=== PATIENT | male | born 1960 | race Caucasian/White ===

== ENCOUNTER 2017-06-21 02:02 | Inpatient (IN) | payer SELFPAY ==
[2017-06-21] VITALS (15 sets, daily range): BP systolic 116–229; BP diastolic 69–128; PULSE 56–94; RESP 12–21; TEMP 96.7–97.9; O2SAT 95–100
[~2017-06-21] VITALS: Ht 180.3 cm; Wt 80.0 kg
[~2017-06-21 02:02] MED LIST: ASPI81TA45 PO; ATOR20TA PO; BLOO1MIS27; CITA-48 PO; DILT90TA PO; HYDR12.56 PO; LISI40TA PO; TRAM100T19 PO
[2017-06-21] MEDS ORDERED: SODIUM CHLOR 0.9% 1000 ML INJ 1,000 ML IV ONE (02:18)
[2017-06-21 02:20] LABS: MEAN CORPUSCULAR HGB CONC 36.2 % (32.0-36.0)
[2017-06-21 02:25] LABS: I-STAT POTASSIUM 4.4 MMOL/L (3.5-4.9); I-STAT SODIUM 138 MMOL/L (138-146)
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
[2017-06-21] MEDS ORDERED: niCARdipine INJ 25 MG in SODIUM CHLOR 0.9% 250 ML INJ 250 ML IV ONE (02:30)
[2017-06-21 02:31] LABS: AUTOMATED NEUTROPHIL # 10.4 TH/MM3 (1.8-7.7); BASOPHIL # 0.1 TH/MM3 (0-0.2); BASOPHIL % 0.7 % (0.0-2.0); EOSINOPHIL # 0.2 TH/MM3 (0-0.4); EOSINOPHIL % 1.3 % (0.0-4.0); HEMATOCRIT 44.5 % (39.0-51.0); LYMPH % 16.3 % (9.0-44.0); LYMPHOCYTE # 2.3 TH/MM3 (1.0-4.8); MEAN CELL VOLUME 92.3 FL (80.0-100.0); MEAN CORPUSCULAR HEMOGLOBIN 33.4 PG (27.0-34.0); MONO % 6.9 % (0.0-8.0); NEUT % 74.8 % (16.0-70.0); PLATELET COUNT 203 TH/MM3 (150-450); RED BLOOD COUNT 4.82 MIL/MM3 (4.50-5.90); RED CELL DISTRIBUTION WIDTH 12.7 % (11.6-17.2); WHITE BLOOD COUNT 13.8 TH/MM3 (4.0-11.0)
--- NOTE | 2017-06-21 02:34 | RADRPT ---
EXAM DATE/TIME: 06/21/2017 02:18 [facility] COMPARISON: No previous studies available for comparison. INDICATIONS : Stroke Alert. Chest pain radiating to right arm with weakness. RADIATION DOSE: 36.15 CTDIvol (mGy) MEDICAL HISTORY : None SURGICAL HISTORY : None. ENCOUNTER: Initial ACUITY: 1 day PAIN SCALE: 0/10 LOCATION: cranial TECHNIQUE: Multiple contiguous axial images were obtained of the head. Using automated exposure control and adj ustment of the mA and/or kV according to patient size, radiation dose was kept as low as reasonably a chievable to obtain optimal diagnostic quality images. DICOM format image data is available electro nically for review and comparison. FINDINGS: CEREBRUM: The ventricles are normal for age. No evidence of midline shift, mass lesion, hemorrhage or acute in farction. No extra-axial fluid collections are seen. POSTERIOR FOSSA: The cerebellum and brainstem are intact. The 4th ventricle is midline. The cerebellopontine angle i s unremarkable. EXTRACRANIAL: The visualized portion of the orbits is intact. SKULL: The calvaria is intact. No evidence of skull fracture. CONCLUSION: Unremarkable exam. These findings are called to Dr. Murillo at 1431 hrs. Syd Segura MD on June 21, 2017 at 2:27 Board Certified Radiologist. This report was verified electronically.
[2017-06-21] MEDS ORDERED: IODIXANOL 320 MG/ML 10 ML VIAL (for Rad CT) IV ONE (02:36)
[2017-06-21 02:37] LABS: HEMO FLAGS AUTO DIFF
[2017-06-21 02:38] LABS: APTT (PATIENT) 28.9 SEC (24.3-30.1); INTERNATIONAL NORMALIZED RATIO 1.1 RATIO; PROTHROMBIN TIME - PATIENT 11.8 SEC (9.8-11.6)
[2017-06-21 02:50] LABS: ALKALINE PHOSPHATASE 123 U/L (45-117); ALT (GPT) 25 U/L (12-78); ANION GAP 10 MEQ/L (5-15); AST (GOT) 46 U/L (15-37); BICARBONATE 23.8 MEQ/L (21.0-32.0); BLOOD UREA NITROGEN 20 MG/DL (7-18); CHLORIDE 104 MEQ/L (98-107); CREATINE KINASE 164 U/L (39-308); GLOMERULAR FILTRATION RATE 38 ML/MIN (>89); SODIUM (NA) 138 MEQ/L (136-145); TOTAL BILIRUBIN ADULT 0.6 MG/DL (0.2-1.0)
[2017-06-21 02:51] LABS: POTASSIUM 4.4 MEQ/L (3.5-5.1)
[2017-06-21] MEDS ORDERED: LABETALOL HCL 100 MG/20 ML VIAL IV PUSH ONE ×2 (03:00→03:30)
--- NOTE | 2017-06-21 03:01 | RADRPT ---
EXAM DATE/TIME: 06/21/2017 02:30 [facility] COMPARISON: No previous studies available for comparison. INDICATIONS : Chest pain. Evaluate for dissection. IV CONTRAST: 50 cc Visipaque (iodixanol) IV RADIATION DOSE: 17.05 CTDIvol (mGy) MEDICAL HISTORY : None SURGICAL HISTORY : None. ENCOUNTER: Initial ACUITY: 1 day PAIN SCALE: 6/10 LOCATION: facial TECHNIQUE: Volumetric scanning was performed using a multi-row detector CT scanner. The data was post processed with a variety of visualization algorithms including full volume maximum intensity projection, multi -planar sliding thin slab reformation, curved planar reformation, and surface rendering techniques. Using automated exposure control and adjustment of the mA and/or kV according to patient size, radiat ion dose was kept as low as reasonably achievable to obtain optimal diagnostic quality images. DICOM format image data is available electronically for review and comparison. FINDINGS: LUNGS: There is no consolidation or pneumothorax. No concerning pulmonary nodule is visualized. No pleural fluid is present. MEDIASTINUM: No abnormally enlarged lymph nodes by CT criteria. No axillary or hilar abnormalities are identified. ABDOMEN: The liver and spleen are free of focal defects. The gallbladder and pancreas demonstrate no abnormali ty. The adrenal glands are normal. The kidneys demonstrate no evidence of solid renal mass or hydrone phrosis. No free fluid or abdominal masses are identified. No para-aortic adenopathy is seen. PELVIS: No evidence of free fluid or pelvic mass. No abnormally enlarged inguinal or retroperitoneal lymph no con are present. The bladder is unremarkable. THORACIC AORTA: The thoracic aortic root is normal with normal branching of the great vessels. There is no evidence of a focal aneurysm. There is a [place] type B. dissection which begins just distal to the left subc lavian artery. This extends down to the level of the bifurcation. ABDOMINAL AORTA: The aorta is normal in caliber without aneurysm. The dissection extends down to the level of bifurcat ion. The renal arteries are patent bilaterally. The proximal celiac and superior mesenteric arteries are patent and normal in diameter. PELVIC VESSELS: The internal iliac and external iliac vessels are patent without aneurysm or stenosis. CONCLUSION: Edwardo type B aortic dissection which extends down to level of bifurcation. These findings were called to Dr. Murillo in the emergency room at 0255 hours. Syd Segura MD on June 21, 2017 at 2:51 Board Certified Radiologist. This report was verified electronically.
[2017-06-21 03:03] LABS: CKMB 4.8 NG/ML (0.5-3.6)
--- NOTE | 2017-06-21 03:08 | RADRPT ---
EXAM DATE/TIME: 06/21/2017 02:33 [facility] COMPARISON: CTA THORACIC ABDOMINAL AORTA W 3D RECON, June 21, 2017, 2:30. INDICATIONS : Chest pain. Stroke alert. Edwardo type B. thoracic dissection seen on CT. MEDICAL HISTORY : None. SURGICAL HISTORY : None. ENCOUNTER: Initial ACUITY: 1 day PAIN SCORE: 0/10 LOCATION: Bilateral chest FINDINGS: A single view of the chest demonstrates the lungs to be symmetrically aerated without evidence of mas s, infiltrate or effusion. The thoracic aortic dissection can be subtly visualized with decreased den sity along the lateral aorta on the AP view. The heart size is at the upper limits of normal. There i s no perihilar edema. Osseous structures are intact. CONCLUSION: 1. Subtle visualization of the known thoracic aortic dissection. 2. The lungs are clear. Syd Segura MD on June 21, 2017 at 3:00 Board Certified Radiologist. This report was verified electronically.
[2017-06-21 03:26] LABS: OVALOCYTES 1+ (NORMAL); PLATELET ESTIMATE SMEAR NORMAL (NORMAL); PLATELET MORPHOLOGY NORMAL (NORMAL); SCAN/DIFF AUTO DIFF CONFIRMED
[2017-06-21] MEDS ORDERED: fentaNYL CITRATE 250 MCG/5 ML AMP IV PUSH ONE (03:30)
[2017-06-21 03:40] LABS: AMPHETAMINE, URINE NEG (NEG); BARBITURATES, URINE NEG (NEG); COCAINE, URINE NEG (NEG)
[2017-06-21 03:44] LABS: BACTERIA, URINE RARE /hpf; BLOOD, URINE NEG (NEG); GLUCOSE,URINE NEG (NEG); HYALINE CAST, URINE 5 /lpf (RARE); KETONE, URINE NEG (NEG); NITRITE,URINE NEG (NEG); PH, URINE 6.5 (5.0-8.5); URINE COLOR LIGHT-YELLOW (YELLW/STRAW)
[2017-06-21] MEDS ORDERED: SODIUM CHLOR 0.9% 1000 ML INJ 1,000 ML IV SCH (04:04)
[2017-06-21] MEDS ORDERED: LORazepam 2 MG/ML VIAL IV PRN (04:15)
[2017-06-21] MEDS ORDERED: MISCELLANEOUS NURSING INFORMATION XX SCH (04:15)
[2017-06-21] MEDS ORDERED: CHLORHEXIDINE GLUCONATE 2 % 1 PACK (2 CLOTHS) TOP PRN (04:15)
[2017-06-21] MEDS ORDERED: RESP: ALBUTEROL 2.5 MG/IPRATROPIUM 0.5 MG NEB (PRN) INH (04:15)
[2017-06-21] MEDS ORDERED: ONDANSETRON HCL 4 MG/2 ML VIAL IV PRN (04:15)
[2017-06-21] MEDS ORDERED: MORPHINE SULFATE 4 MG/ML INJ IV PRN (04:15)
[2017-06-21] MEDS ORDERED: LACTULOSE SYRUP 20 GM/30 ML CUP PO PRN (04:15)
[2017-06-21] MEDS ORDERED: ZOLPIDEM TARTRATE 5 MG TAB PO PRN (04:15)
[2017-06-21] MEDS ORDERED: BISACODYL 10 MG SUPP RECTAL PRN (04:15)
[2017-06-21] MEDS ORDERED: SENNOSIDES 8.6 MG TAB PO PRN (04:15)
--- NOTE | 2017-06-21 04:24 | HHI.HP ---
HPI Service Critical Care Medicine Primary Care Physician Unknown Admission Diagnosis Type B Aortic Dissection Diagnosis: Travel History International Travel<30 Days: No Contact w/Intl Traveler <30 Da: No Traveled to Known Affected Are: No History of Present Illness 56 year old female presents with complaints of right upper extremity weakness and bilateral lower extremity weakness. The patient reports a history of lying in bed awake when he had onset of chest pressure and back pain. He reports that the pain felt like an expanding sensation in his chest and back. Then he got up and noticed having tingling in bilateral upper extremities with weakness in the right upper extremity and bilateral lower. He says that he ended up easing himself to the ground. On ambulance services arrival the patient was noted to have paresis of the right upper extremity and numbness to bilateral lower extremities with paralysis of bilateral lower extremities. However, en route to this facility the weakness resolved and during my exam he is a equal strength in all 4 extremities. In the emergency department at the CT of aorta diagnosed type B dissection and patient is admitted to critical care unit for medical management. Review of Systems Constitutional: COMPLAINS OF: Diaphoretic episodes, Dizziness, DENIES: Fatigue , Fever, Weight gain, Weight loss, Chills, Change in appetite, Night Sweats Endocrine: DENIES: Heat/cold intolerance, Polydipsia, Polyuria, Polyphagia Eyes: DENIES: Blurred vision, Diplopia, Eye inflammation, Eye pain, Vision loss , Photosensitivity, Double Vision Ears, nose, mouth, throat: DENIES: Tinnitus, Hearing loss, Vertigo, Nasal discharge, Oral lesions, Throat pain, Hoarseness, Ear Pain, Running Nose, Epistaxis, Sinus Pain, Toothache, Odynophagia Respiratory: DENIES: Apneas, Cough, Snoring, Wheezing, Hemoptysis, Sputum production, Shortness of breath Cardiovascular: COMPLAINS OF: Chest pain, DENIES: Palpitations, Syncope, Dyspnea on Exertion, PND, Lower Extremity Edema, Orthopnea, Claudication Gastrointestinal: DENIES: Abdominal pain, Black stools, Bloody stools, Constipation, Diarrhea, Nausea, Vomiting, Difficulty Swallowing, Anorexia Genitourinary: DENIES: Sexual dysfunction, Urinary frequency, Urinary incontinence, Urgency, Hematuria, Dysuria, Nocturia, Penile Discharge, Testicular Pain, Testicular Swelling Musculoskeletal: DENIES: Joint pain, Muscle aches, Stiffness, Joint Swelling, Back pain, Neck pain Integumentary: DENIES: Abnormal pigmentation, Nail changes, Pruritus, Rash Hematologic/lymphatic: DENIES: Bruising, Lymphadenopathy Immunologic/allergic: DENIES: Eczema, Urticaria Neurologic: COMPLAINS OF: Abnormal gait, Localized weakness, Paresthesias, Poor Balance, DENIES: Headache, Seizures, Speech Problems, Tremor Psychiatric: DENIES: Anxiety, Confusion, Mood changes, Depression, Hallucinations, Agitation, Suicidal Ideation, Homicidal Ideation, Delusions Past Family Social History Allergies: Coded Allergies: No Known Allergies (Unverified , 06/21/17) Past Medical History Hypertension Past Surgical History None Reported Medications Reported Meds & Active Scripts Active No Active Prescriptions or Reported Medications Active Ordered Medications Current Medications Medications (Trade) Dose Ordered Sig/Rios Route PRN Reason Start Time Stop Time Status Last Admin Dose Admin Sodium Chloride (NS 1000 ml Inj) 1,000 ml @ 84 mls/hr [id number] IV 06/21/17 04:04 Sodium Chloride (NS Flush) 2 ml UNSCH PRN .XX FLUSH AFTER USING IV ACCESS 06/21/17 04:15 Sodium Chloride (NS Flush) 2 ml BID .XX 06/21/17 09:00 Acetaminophen (Tylenol) 650 mg Q6H PRN PO PAIN 1-5 AND/OR FEVER >101F 06/21/17 04:15 Morphine Sulfate (Morphine Inj) 2 mg Q2H PRN IV PAIN SCALE 6 TO 10 06/21/17 04:15 Famotidine (Pepcid) 20 mg Q12HR PO 06/21/17 09:00 Lorazepam (Ativan Inj) 1 mg Q1H PRN IV Agitation/Sedation 06/21/17 04:15 Ondansetron HCl (Zofran Inj) 4 mg Q6H PRN IV NAUSEA OR VOMITING 06/21/17 04:15 Zolpidem Tartrate (Ambien) 5 mg HS PRN PO INSOMNIA 06/21/17 04:15 Miscellaneous Information 1 [id number] XX 06/21/17 04:15 Chlorhexidine Gluconate (Chlorhexidine 2% Cloth) 3 pack Taper DAILY@04 TOP 06/22/17 04:00 06/18/18 03:59 Chlorhexidine Gluconate (Chlorhexidine 2% Cloth) 3 pack UNSCH PRN [facility] 06/21/17 04:15 Senna/Docusate Sodium (Yanet-Colace) 1 tab BID PO 06/21/17 09:00 Magnesium Hydroxide (Milk Of Rita Ryder) 30 ml Q12H PRN PO MILD - MODERATE CONSTIPATION 06/21/17 04:15 Sennosides (Senokot) 17.2 mg Q12H PRN PO MODERATE - SEVERE CONSTIPATION 06/21/17 04:15 Bisacodyl (Dulcolax Supp) 10 mg DAILY PRN RECTAL SEVERE CONSITIPATION 06/21/17 04:15 Lactulose 30 ml 30 ml DAILY PRN PO SEVERE CONSITIPATION 06/21/17 04:15 Labetalol HCl/ Sodium Chloride (Trandate Inj/NS Inj) 250 ml @ 0 mls/hr TITRATE IV 06/21/17 04:15 Family History No family history of early coronary artery disease or cancer Social History No history of alcohol or illicit drug abuse Physical Exam Vital Signs Vital Signs Date Time Temp Pulse Resp B/P Pulse Ox O2 Delivery O2 Flow Rate FiO2 06/21/17 03:24 75 18 152/84 100 Nasal Cannula 2 06/21/17 03:01 97.7 90 16 202/112 98 Nasal Cannula 2 06/21/17 02:45 222/128 06/21/17 02:28 98 Room Air 06/21/17 02:28 98 Room Air 06/21/17 02:07 94 16 229/128 96 Physical Exam GENERAL: Well-nourished, well-developed patient. SKIN: Warm and dry. HEAD: Normocephalic. EYES: No scleral icterus. No injection or drainage. NECK: Supple, trachea midline. No JVD or lymphadenopathy. CARDIOVASCULAR: Regular rate and rhythm without murmurs, gallops, or rubs. RESPIRATORY: Breath sounds equal bilaterally. No accessory muscle use. GASTROINTESTINAL: Abdomen soft, non-tender, nondistended. MUSCULOSKELETAL: No cyanosis, or edema. BACK: Nontender without obvious deformity. NEURO EXAM: Mental Status: The patient is alert and oriented to person, place, and time with normal speech. Cranial Nerves: Visual acuity intact bilaterally. Visual bonner normal in all quadrants. Pupils are round, reactive to light and accommodation. Extraocular movements are intact without ptosis. Hearing is normal bilaterally. Voice is normal. Shoulder shrug strong, and equal bilaterally. Tongue protrudes midline and moves symmetrically. Reflexes: Biceps, patellar, and Achilles are 2/4 bilaterally. No clonus. Plantar reflex is downward bilaterally. Sensation: Sensation is intact bilaterally to pain and light touch. Two-point discrimination is intact. Motor: Good muscle tone. Strength is 5/5 bilaterally at all 4 extremities. Cerebellar: [id number] and [id number]-[id number] test normal bilaterally. Laboratory Laboratory Tests Test 06/21/17 06/21/17 06/21/17 02:10 02:12 02:48 Bedside Hemoglobin 15.3 Bedside Hematocrit 45.0 Bedside Sodium 138 Sodium Level 138 Bedside Potassium 4.4 Potassium Level 4.4 Bedside Chloride 101 Chloride Level 104 Carbon Dioxide Level 23.8 Anion Gap 10 Bedside Blood Urea Nitrogen 26 Blood Urea Nitrogen 20 Creatinine 1.85 Bedside Creatinine 1.8 Estimat Glomerular Filtration 38 Rate Bedside Glucose 115 Random Glucose 107 Calcium Level 8.5 Magnesium Level 2.0 Total Bilirubin 0.6 Aspartate Amino Transf 46 (AST/SGOT) Alanine Aminotransferase 25 (ALT/SGPT) Alkaline Phosphatase 123 Total Creatine Kinase 164 Creatine Kinase MB 4.8 Troponin I 0.13 Total Protein 7.0 Albumin 3.2 Lipase 1386 White Blood Count 13.8 Red Blood Count 4.82 Hemoglobin 16.1 Hematocrit 44.5 Mean Corpuscular Volume 92.3 Mean Corpuscular Hemoglobin 33.4 Mean Corpuscular Hemoglobin 36.2 Concent Red Cell Distribution Width 12.7 Platelet Count 203 Mean Platelet Volume 8.8 Neutrophils (%) (Auto) 74.8 Lymphocytes (%) (Auto) 16.3 Monocytes (%) (Auto) 6.9 Eosinophils (%) (Auto) 1.3 Basophils (%) (Auto) 0.7 Neutrophils # (Auto) 10.4 Lymphocytes # (Auto) 2.3 Monocytes # (Auto) 1.0 Eosinophils # (Auto) 0.2 Basophils # (Auto) 0.1 CBC Comment AUTO DIFF Differential Comment AUTO DIFF CONFIRMED Platelet Estimate NORMAL Platelet Morphology Comment NORMAL Ovalocytes 1+ Prothrombin Time 11.8 Prothromb Time International 1.1 Ratio Activated Partial 28.9 Thromboplast Time Fibrinogen 250 Blood Type O POSITIVE Antibody Screen NEGATIVE Blood Bank Comment Urine Color LIGHT-YELLOW Urine Turbidity CLEAR Urine pH 6.5 Urine Specific [place] 1.011 Urine Protein 100 Urine Glucose (UA) NEG Urine Ketones NEG Urine Occult Blood NEG Urine Nitrite NEG Urine Bilirubin NEG Urine Urobilinogen LESS THAN 2.0 Urine Leukocyte Esterase NEG Urine RBC LESS THAN 1 Urine Bacteria RARE Urine Hyaline Casts 5 Microscopic Urinalysis Comment Urine Opiates Screen NEG Urine Barbiturates Screen NEG Urine Amphetamines Screen NEG Urine Benzodiazepines Screen NEG Urine Cocaine Screen NEG Urine Cannabinoids Screen NEG Result Diagram: 06/21/1721106/21/17209 Imaging Last 24 hours Impressions Chest X-Ray 06/21/17217 Signed Impressions: Service Date/Time: Wednesday, June 21, 2017 02:33 - CONCLUSION: 1. Subtle visualization of the known thoracic aortic dissection. 2. The lungs are clear. Syd Segura MD Aorta CTA 06/21/17217 Signed Impressions: Service Date/Time: Wednesday, June 21, 2017 02:30 - CONCLUSION: Edwardo type B aortic dissection which extends down to level of bifurcation. These findings were called to Dr. Murillo in the emergency room at 0255 hours. Syd Segura MD Head CT 06/21/17 0000 Signed Impressions: Service Date/Time: Wednesday, June 21, 2017 02:18 - CONCLUSION: Unremarkable exam. These findings are called to Dr. Murillo at 1431 hrs. Syd Segura MD Assessment and Plan Assessment and Plan Type B aortic dissection - Medical management - Labetalol drip per protocol - Cardiothoracic surgery consult Hypertension - Labetalol drip Acute kidney injury - Unknown baseline creatinine - IV hydration - Strict I's and O's - Monitor creatinine and electrolytes replacement per ICU protocol DVT GI prophylaxis - Teds SCDs - Pepcid - Pharmacological DVT prophylaxis per CT surgeon Critical Care: The total critical care time was 35 minutes. Time to perform other separately billable procedures was not included in the critical care time. Pio Cruz MD Jun 21, 2017 04:24
[2017-06-21] MEDS ORDERED: MIDAZOLAM HCL 5 MG/ML VIAL (1 ML) IM ONE (08:00)
[2017-06-21] MEDS: DOCUSATE SODIUM 50 MG/SENNA 8.6 MG TAB PO SCH ×2 (08:43→21:00)
[2017-06-21] MEDS: FAMOTIDINE 20 MG TAB PO SCH ×2 (08:43→21:00)
[2017-06-21] MEDS: METOPROLOL TARTRATE 50 MG TAB PO SCH ×2 (09:00→17:08)
[2017-06-21] MEDS: SODIUM CHLORIDE 0.9% FLUSH 10 ML FLUSH SCH ×2 (09:00→21:00)
[2017-06-21] MEDS: MORPHINE SULFATE 4 MG/ML INJ IV PRN ×2 (09:01→13:28)
--- NOTE | 2017-06-21 09:06 | EKG ---
Date Performed: 06/21/2017 Time Performed: 02:11:33 PTAGE: 56 years EKG: Sinus rhythm LEFT VENTRICULAR HYPERTROPHY AND ST-T CHANGE ABNORMAL ECG NO PREVIOUS TRACING DOCTOR: Deangelo Montez Interpretating Date/Time 06/21/2017 09:05:24
--- NOTE | 2017-06-21 10:10 | MB ---
cc: BELA MORA M.D. DATE OF CONSULTATION 06/21/2017 REASON FOR CONSULTATION Mr. James is a 56-year-old seen in neurological consultation. The patient came into the hospital in the middle of the night and eventually a stroke alert was called. He was felt not to be a candidate for TPA. The patient describes that he was watching television by himself when he developed severe chest and back pain. He struggled to open his door to go to another door in the house to ask for help. He describes that he had severe weakness in both arms and he shuffled apparently on his knees and had a very hard time opening the door as he did not have the strength to turn the knob of the door. He was able to knock on his family's door with his knees and was subsequently brought to the hospital. It appears that on his way coming to the hospital, his weakness improved. He was found to have some aortic dissection type of beat extending down to the bifurcation. PAST MEDICAL HISTORY The patient's medical history is mostly negative. It appears that he was not getting any medical care, not taking any medication. There is a history of hypertension. At the time of my examination, he was in some discomfort and it appears that when his blood pressure comes down, he becomes symptomatic and started nearly vomiting. The nurse was with him and he seemed to improve quickly as the labetalol dosing was adjusted. He was not able to focus and provide a more detailed history. Ocular movements and visual bonner appeared full. No facial weakness. Tongue and palate moved well. He was able to move all four extremities for me and oppose some reasonable resistance. Muscle stretch reflexes were diminished, but present throughout and plantar responses were flexor. He did raise the arms and gripped to a mild degree. His sensory exam was grossly intact. LABORATORY DATA Reviewed. White count 13.8, hemoglobin 16.1, platelets 203. BUN 20, creatinine 1.85, sodium 138, potassium 4.4, glucose 115, CPK 164. Lipase elevated to 1386. ASSESSMENT This patient had sudden chest and back pain along with weakness of all four extremities. Although this is a historical finding, it appears to be significant. He is discovered to have an aortic dissection, therefore I called and spoke to the cardiovascular surgeon Dr. Joseph about the possible fact that he might have had some transient spinal cord ischemia. Dr. Joseph is going to evaluate the patient. I am going to see if we can obtain an MRI of the cervical and thoracic spine. I will make the study without contrast as there is some renal insufficiency. The patient is to remain in the unit, under bedrest and his blood pressure management is to be guided by the other treating physicians. I will follow the neurological course. Thank you for asking us to assist in his care. MD HENRY Tellez/NGOZI /9:39 AM /9:59 AM
[2017-06-21] MEDS: LABETALOL INJ 500 MG in SODIUM CHLORIDE 0.9% INJ 150 ML IV SCH ×2 (10:53→13:27)
--- NOTE | 2017-06-21 11:54 | EKG ---
Date Performed: 06/21/2017 Time Performed: 10:04:23 PTAGE: 56 years EKG: SINUS BRADYCARDIA ST DEVIATION AND MARKED T-WAVE ABNORMALITY, CONSIDER ANTEROLATERAL ISCHEM IA ABNORMAL ECG PREVIOUS TRACING : 06/21/2017 02.11 DOCTOR: Deangelo Montez Interpretating Date/Time 06/21/2017 11:52:59
--- NOTE | 2017-06-21 15:39 | HHI.CCPN ---
Subjective Remarks/Hospital Course 56 year old female presents with complaints of right upper extremity weakness and bilateral lower extremity weakness. The patient reports a history of lying in bed awake when he had onset of chest pressure and back pain. He reports that the pain felt like an expanding sensation in his chest and back. Then he got up and noticed having tingling in bilateral upper extremities with weakness in the right upper extremity and bilateral lower. He says that he ended up easing himself to the ground. On ambulance services arrival the patient was noted to have paresis of the right upper extremity and numbness to bilateral lower extremities with paralysis of bilateral lower extremities. However, en route to this facility the weakness resolved and during my exam he is a equal strength in all 4 extremities. In the emergency department at the CT of aorta diagnosed type B dissection and patient is admitted to critical care unit for medical management. 06/21 1500 hrs: BP control good after PO lopressor started. Will taper off labetalol drip. Amlodipine added and catpres for prn. CV surgery recommends allowing BP to rise to 140 - some question of temporary spinal cord ischemia during initial event. Neurology Service input appreciated. MRI pending. Peripheral perfusion unimpaired. Celiac axis and SMA widely patent - etiology of lipase elevation unclear. Objective Vital Signs Date Time Temp Pulse Resp B/P Pulse Ox O2 Delivery O2 Flow Rate FiO2 06/21/17 12:00 97.6 56 14 116/72 95 06/21/17 07:26 21 06/21/17 07:00 Room Air 06/21/17 03:24 2 Result Diagram: 06/21/1721106/21/17209 Imaging Last 24 hours Impressions Chest X-Ray 06/21/17217 Signed Impressions: Service Date/Time: Wednesday, June 21, 2017 02:33 - CONCLUSION: 1. Subtle visualization of the known thoracic aortic dissection. 2. The lungs are clear. Syd Segura MD Aorta CTA 06/21/17217 Signed Impressions: Service Date/Time: Wednesday, June 21, 2017 02:30 - CONCLUSION: Edwardo type B aortic dissection which extends down to level of bifurcation. These findings were called to Dr. Murillo in the emergency room at 0255 hours. Syd Segura MD Head CT 06/21/17 0000 Signed Impressions: Service Date/Time: Wednesday, June 21, 2017 02:18 - CONCLUSION: Unremarkable exam. These findings are called to Dr. Murillo at 1431 hrs. Syd Segura MD Objective Remarks GENERAL: WAnxious. SKIN: Warm and dry. HEAD: Normocephalic. NECK: Supple, trachea midline. CARDIOVASCULAR: Bradycardic rate and rhythm without murmurs, gallops, or rubs. RESPIRATORY: Breath sounds equal bilaterally. No accessory muscle use. Clear. GASTROINTESTINAL: Abdomen soft, non-tender, nondistended. BS active. MUSCULOSKELETAL: No cyanosis, or edema. BACK: Nontender without obvious deformity. NEURO EXAM: Moves 4 limbs with strength. O X 3, speech clear. A/P Assessment and Plan Type B aortic dissection - Medical management - Labetalol drip per protocol -> lopressor and norvasc po. - Cardiothoracic surgery consult Hypertension - Taper Labetalol drip Acute kidney injury - Unknown baseline creatinine - IV hydration - Strict I's and O's - Monitor creatinine and electrolytes replacement per ICU protocol DVT GI prophylaxis - SCDs - Pepcid - Pharmacological DVT prophylaxis per CT surgeon Overall impression: Critically ill with unstable acute aortic emergency, possibly involving spinal cord circulation. MRI pending. Requiring aggressive maneuvers to control blood pressure. LVH should respond to beat blockers well. Critical care 55 mins Joey Newton MD Jun 21, 2017 15:39
[2017-06-22] VITALS (12 sets, daily range): BP systolic 124–146; BP diastolic 58–87; PULSE 58–79; RESP 15–24; TEMP 96.7–99; O2SAT 96–98
[2017-06-22] MEDS: METOPROLOL TARTRATE 50 MG TAB PO SCH ×4 (01:23→21:03)
[2017-06-22] MEDS: MORPHINE SULFATE 4 MG/ML INJ IV PRN (03:41)
[2017-06-22] MEDS: CHLORHEXIDINE GLUCONATE 2 % 1 PACK (2 CLOTHS) TOP SCH (04:00)
[2017-06-22 04:44] LABS: AUTOMATED NEUTROPHIL # 8.8 TH/MM3 (1.8-7.7); BASOPHIL % 0.3 % (0.0-2.0); EOSINOPHIL # 0.1 TH/MM3 (0-0.4); HEMATOCRIT 40.1 % (39.0-51.0); HEMO FLAGS DIFF FINAL; LYMPH % 12.1 % (9.0-44.0); LYMPHOCYTE # 1.4 TH/MM3 (1.0-4.8); MEAN CELL VOLUME 94.9 FL (80.0-100.0); MEAN CORPUSCULAR HEMOGLOBIN 32.6 PG (27.0-34.0); MEAN CORPUSCULAR HGB CONC 34.3 % (32.0-36.0); MONO % 11.1 % (0.0-8.0); NEUT % 75.5 % (16.0-70.0); PLATELET COUNT 160 TH/MM3 (150-450); RED BLOOD COUNT 4.23 MIL/MM3 (4.50-5.90); RED CELL DISTRIBUTION WIDTH 12.9 % (11.6-17.2); WHITE BLOOD COUNT 11.7 TH/MM3 (4.0-11.0)
[2017-06-22 05:13] LABS: ALKALINE PHOSPHATASE 103 U/L (45-117); ALT (GPT) 18 U/L (12-78); ANION GAP 8 MEQ/L (5-15); AST (GOT) 11 U/L (15-37); BICARBONATE 28.9 MEQ/L (21.0-32.0); BLOOD UREA NITROGEN 23 MG/DL (7-18); CHLORIDE 102 MEQ/L (98-107); GLOMERULAR FILTRATION RATE 41 ML/MIN (>89); POTASSIUM 3.4 MEQ/L (3.5-5.1); SODIUM (NA) 139 MEQ/L (136-145); TOTAL BILIRUBIN ADULT 0.7 MG/DL (0.2-1.0)
[2017-06-22] MEDS: cloNIDine HCL 0.1 MG TAB PO PRN ×3 (06:13→22:42)
[2017-06-22] MEDS: SODIUM CHLORIDE 0.9% FLUSH 10 ML FLUSH SCH ×2 (08:09→21:00)
[2017-06-22] MEDS: FAMOTIDINE 20 MG TAB PO SCH ×2 (08:09→21:03)
[2017-06-22] MEDS: DOCUSATE SODIUM 50 MG/SENNA 8.6 MG TAB PO SCH ×2 (08:09→21:03)
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
--- NOTE | 2017-06-22 08:42 | HHI.CCPN ---
Subjective Remarks/Hospital Course 56 year old female presents with complaints of right upper extremity weakness and bilateral lower extremity weakness. The patient reports a history of lying in bed awake when he had onset of chest pressure and back pain. He reports that the pain felt like an expanding sensation in his chest and back. Then he got up and noticed having tingling in bilateral upper extremities with weakness in the right upper extremity and bilateral lower. He says that he ended up easing himself to the ground. On ambulance services arrival the patient was noted to have paresis of the right upper extremity and numbness to bilateral lower extremities with paralysis of bilateral lower extremities. However, en route to this facility the weakness resolved and during my exam he is a equal strength in all 4 extremities. In the emergency department at the CT of aorta diagnosed type B dissection and patient is admitted to critical care unit for medical management. 06/21 1500 hrs: BP control good after PO lopressor started. Will taper off labetalol drip. Amlodipine added and catapres for prn. CV surgery recommends allowing BP to rise to 140 - some question of temporary spinal cord ischemia during initial event. Neurology Service input appreciated. MRI pending. Peripheral perfusion unimpaired. Celiac axis and SMA widely patent - etiology of lipase elevation unclear. 06/22: Pulse rate control good. BP allowed to rise moderately due to possible episode of cord ischemia. Urine output marginal. Objective Vital Signs Date Time Temp Pulse Resp B/P Pulse Ox O2 Delivery O2 Flow Rate FiO2 06/22/17 04:00 97.8 62 18 142/80 96 06/21/17 19:00 Room Air 06/21/17 07:26 21 06/21/17 03:24 2 Intake and Output 06/21/17 06/21/17 06/22/17 08:00 16:00 00:00 Intake Total 400 ml 2243 ml Output Total 200 ml Balance 400 ml 2043 ml Result Diagram: 06/22/17 0351 06/22/17 035 Imaging Last 24 hours Impressions Chest X-Ray 06/21/17217 Signed Impressions: Service Date/Time: Wednesday, June 21, 2017 02:33 - CONCLUSION: 1. Subtle visualization of the known thoracic aortic dissection. 2. The lungs are clear. Syd Segura MD Aorta CTA 06/21/17217 Signed Impressions: Service Date/Time: Wednesday, June 21, 2017 02:30 - CONCLUSION: [place] type B aortic dissection which extends down to level of bifurcation. These findings were called to Dr. Murillo in the emergency room at 0255 hours. Syd Segura MD Head CT 06/21/17 0000 Signed Impressions: Service Date/Time: Wednesday, June 21, 2017 02:18 - CONCLUSION: Unremarkable exam. These findings are called to Dr. Murillo at 1431 hrs. Syd Segura MD Objective Remarks GENERAL: WAnxious. SKIN: Warm and dry. HEAD: Normocephalic. NECK: Supple, trachea midline. CARDIOVASCULAR: Bradycardic rate and rhythm without murmurs, gallops, or rubs. No JVD. RESPIRATORY: Breath sounds equal bilaterally. No accessory muscle use. Clear. GASTROINTESTINAL: Abdomen soft, non-tender, nondistended. BS active. MUSCULOSKELETAL: No cyanosis, or edema. Well perfused legs. NEURO EXAM: Moves 4 limbs with strength. O X 3, speech clear. A/P Assessment and Plan Type B aortic dissection - Medical management - Labetalol drip per protocol -> lopressor and norvasc po. - Cardiothoracic surgery consult Hypertension - Taper Labetalol drip Acute kidney injury - Unknown baseline creatinine - IV hydration - Strict I's and O's - Monitor creatinine and electrolytes replacement per ICU protocol DVT GI prophylaxis - SCDs - Pepcid - Pharmacological DVT prophylaxis per CT surgeon Overall impression: Critically ill with acute aortic emergency, possibly involving spinal cord circulation. MRI pending. Responding to aggressive maneuvers to control blood pressure. LVH will respond to beat blockers well. Critical Care 38 mins Joey Newton MD Jun 22, 2017 08:42
[2017-06-22] MEDS ORDERED: GADODIAMIDE PF 287 MG/ML 20 ML VIAL (for RAD MRI) IV ONE (09:25)
--- NOTE | 2017-06-22 09:41 | RADRPT ---
EXAM DATE/TIME: 06/22/2017 08:48 [facility] COMPARISON: No previous studies available for comparison. INDICATIONS : Lower extremity weakness. MEDICAL HISTORY : Hypertension. SURGICAL HISTORY : None. ENCOUNTER: Subsequent ACUITY: 2 day PAIN SCORE: 0/10 LOCATION: neck TECHNIQUE: Multiplanar, multisequence MRI examination of the cervical spine was performed. FINDINGS: At C2-3 there is mild degenerative change about the canal or foraminal stenosis. At C3-4 there is posterior disc and osteophyte effacing thecal sac without cord compression or signif icant foraminal stenosis. At C4-5 there is a mild disc protrusion and posterior osteophytic ridging resulting in mild AP canal stenosis and minimal impression on anterior surface of the cord. Minimal foraminal encroachment. At C5-6 there is a mild disc protrusion and osteophytic ridging with mild AP canal stenosis and mild flattening of anterior surface of the cord. Mild to moderate bilateral foraminal stenosis. At C6-7 there is posterior osteophytic ridging effacing the thecal sac without significant cord compr ession. Mild foraminal stenosis. C7-T1: Mild osteophytic ridging without stenosis. Slight reversal of normal cervical lordosis. No cord signal abnormalities. CONCLUSION: 1. Moderate degenerative disc disease with slight reversal of normal cervical lordosis. 2. Osteophytes and mild disc protrusions at C4-5-6-7 resulting in mild AP canal stenosis and mild fla ttening of the anterior surface of the cord. No cord signal abnormality. Yamil Marks MD on June 22, 2017 at 9:25 Board Certified Radiologist. This report was verified electronically.
--- NOTE | 2017-06-22 10:06 | RADRPT ---
EXAM DATE/TIME: 06/22/2017 08:48 [facility] COMPARISON: No previous studies available for comparison. INDICATIONS : Lower extremity weakness. CONTRAST: 16 cc Multihance (gadobenate) IV MEDICAL HISTORY : Hypertension. SURGICAL HISTORY : None. ENCOUNTER: Subsequent ACUITY: 2 day PAIN SCORE: 0/10 LOCATION: back TECHNIQUE: Multiplanar multisequence MRI of the thoracic spine was performed. FINDINGS: There is mild to moderate degenerative disc disease in the thoracic spine. Normal alignment. Minimal posterior ossific ridging. No discrete disc protrusions. No cord impingement and no cord signal abnor malities. No canal stenosis or direct nerve root compression. Incidental hemangioma at L1. CONCLUSION: 1. Mild to moderate degenerative disc disease. No acute findings. No cord impingement or direct nerve root compression. Yamil Marks MD on June 22, 2017 at 9:59 Board Certified Radiologist. This report was verified electronically.
--- NOTE | 2017-06-22 12:18 | HHI.PR ---
Review/Management Daily Summary 06/22 doing better today good motor functions all 4 limbs admits some chronic hand numbness mri results seen neuro herrera can be followed as outpt in 2-3 weeks Subjective Subjective Comments No new neuro events reported No headache Active Medications Current Medications Medications (Trade) Dose Ordered Sig/Rios Route Start Time Stop Time Status Last Admin (NS Flush) 2 ml UNSCH PRN .XX 06/21/17 04:15 (NS Flush) 2 ml BID .XX 06/21/17 09:00 06/22/17 08:09 (Tylenol) 650 mg Q6H PRN PO 06/21/17 04:15 (Pepcid) 20 mg Q12HR PO 06/21/17 09:00 06/22/17 08:09 (Ativan Inj) 1 mg Q1H PRN IV 06/21/17 04:15 (Zofran Inj) 4 mg Q6H PRN IV 06/21/17 04:15 06/21/17 14:52 (Ambien) 5 mg HS PRN PO 06/21/17 04:15 Miscellaneous Information 1 Q361D XX 06/21/17 04:15 06/21/17 04:15 (Chlorhexidine 2% Cloth) 3 pack Taper DAILY@04 TOP 06/22/17 04:00 06/18/18 03:59 06/22/17 04:00 (Chlorhexidine 2% Cloth) 3 pack UNSCH PRN TOP 06/21/17 04:15 (Yanet-Colace) 1 tab BID PO 06/21/17 09:00 06/22/17 08:09 (Milk Of Magnesia Liq) 30 ml Q12H PRN PO 06/21/17 04:15 (Senokot) 17.2 mg Q12H PRN PO 06/21/17 04:15 (Dulcolax Supp) 10 mg DAILY PRN RECTAL 06/21/17 04:15 Lactulose 30 ml 30 ml DAILY PRN PO 06/21/17 04:15 (Trandate Inj/NS Inj) 250 ml @ 0 mls/hr TITRATE IV 06/21/17 04:15 06/21/17 13:27 (Lopressor) 50 mg Q8H PO 06/21/17 09:00 06/22/17 08:15 (Norvasc) 10 mg DAILY PO 06/21/17 09:00 06/22/17 08:09 (Morphine Inj) 4 mg Q2H PRN IV 06/21/17 08:15 06/22/17 03:41 (Catapres) 0.1 mg Q6H PRN PO 06/21/17 15:30 06/22/17 06:13 Allergies Allergies Coded Allergies No Known Allergies (Unverified06/21/17) Exam I&O / VS 06/21/17 06/21/17 06/22/17 15:00 23:00 07:00 Intake Total 2243 ml 100 ml Output Total 200 ml 525 ml Balance 2043 ml -425 ml Intake Oral 720 ml 100 ml IV Total 1523 ml Output Urine Total 200 ml 525 ml Stool Total 0 ml # Voids 1 # Bowel Movements 0 0 Vital Signs Date Time Temp Pulse Resp B/P Pulse Ox O2 Delivery O2 Flow Rate FiO2 06/22/17 08:00 97.9 60 18 146/86 98 06/22/17 07:00 58 06/22/17 07:00 96 Room Air 06/22/17 04:00 97.8 62 18 142/80 96 06/22/17 02:00 66 06/22/17 00:00 96.7 68 15 124/58 98 06/22/17 00:00 68 06/21/17 20:00 97.6 60 12 130/76 98 06/21/17 19:00 98 Room Air 06/21/17 16:00 96.7 56 17 126/75 95 06/21/17 15:00 75 Objective Radiology Results Last 48 hours Impressions Thoracic Spine MRI 06/22/17 0000 Signed Impressions: Service Date/Time: June 08:48 - CONCLUSION: 1. Mild to moderate degenerative disc disease. No acute findings. No cord impingement or direct nerve root compression. Yamil Marks MD Cervical Spine MRI 06/22/17 0000 Signed Impressions: Service Date/Time: June 08:48 - CONCLUSION: 1. Moderate degenerative disc disease with slight reversal of normal cervical lordosis. 2. Osteophytes and mild disc protrusions at C4-5-6-7 resulting in mild AP canal stenosis and mild flattening of the anterior surface of the cord. No cord signal abnormality. Yamil Marks MD Chest X-Ray 06/21/17217 Signed Impressions: Service Date/Time: Wednesday, June 21, 2017 02:33 - CONCLUSION: 1. Subtle visualization of the known thoracic aortic dissection. 2. The lungs are clear. Syd Segura MD Aorta CTA 06/21/17217 Signed Impressions: Service Date/Time: Wednesday, June 21, 2017 02:30 - CONCLUSION: [place] type B aortic dissection which extends down to level of bifurcation. These findings were called to Dr. Murillo in the emergency room at 0255 hours. Syd Segura MD Head CT 06/21/17 0000 Signed Impressions: Service Date/Time: Wednesday, June 21, 2017 02:18 - CONCLUSION: Unremarkable exam. These findings are called to Dr. Murillo at 1431 hrs. Syd Segura MD Micro and Labs Laboratory Tests Test 06/22/17 03:51 White Blood Count 11.7 Red Blood Count 4.23 Hemoglobin 13.8 Hematocrit 40.1 Mean Corpuscular Volume 94.9 Mean Corpuscular Hemoglobin 32.6 Mean Corpuscular Hemoglobin 34.3 Concent Red Cell Distribution Width 12.9 Platelet Count 160 Mean Platelet Volume 8.6 Neutrophils (%) (Auto) 75.5 Lymphocytes (%) (Auto) 12.1 Monocytes (%) (Auto) 11.1 Eosinophils (%) (Auto) 1.0 Basophils (%) (Auto) 0.3 Neutrophils # (Auto) 8.8 Lymphocytes # (Auto) 1.4 Monocytes # (Auto) 1.3 Eosinophils # (Auto) 0.1 Basophils # (Auto) 0.0 CBC Comment DIFF FINAL Differential Comment Sodium Level 139 Potassium Level 3.4 Chloride Level 102 Carbon Dioxide Level 28.9 Anion Gap 8 Blood Urea Nitrogen 23 Creatinine 1.72 Estimat Glomerular Filtration 41 Rate Random Glucose 99 Calcium Level 8.5 Phosphorus Level 3.1 Magnesium Level 2.0 Total Bilirubin 0.7 Aspartate Amino Transf 11 (AST/SGOT) Alanine Aminotransferase 18 (ALT/SGPT) Alkaline Phosphatase 103 Total Protein 5.7 Albumin 2.7 Lipase 186 Rosina Hanks MD Jun 22, 2017 12:18
--- NOTE | 2017-06-22 14:54 | EKG ---
Date Performed: 06/21/2017 Time Performed: 16:00:04 PTAGE: 56 years EKG: SINUS BRADYCARDIA ST DEVIATION AND MARKED T-WAVE ABNORMALITY, CONSIDER ANTEROLATERAL ISCHEM IA ABNORMAL ECG PREVIOUS TRACING : 06/21/2017 10.04 Since previous tracing, no significant change noted DOCTOR: Yisel Alegria Interpretating Date/Time 06/22/2017 14:53:40
--- NOTE | 2017-06-22 14:54 | EKG ---
Date Performed: 06/21/2017 Time Performed: 22:00:56 PTAGE: 56 years EKG: Sinus rhythm ST DEVIATION AND MARKED T-WAVE ABNORMALITY, CONSIDER ANTEROLATERAL ISCHEMIA ABNORMAL ECG PREVIOUS TRACING : 06/21/2017 16.00 Since previous tracing, no significant change noted DOCTOR: Yisel Alegria Interpretating Date/Time 06/22/2017 14:54:03
[2017-06-22] MEDS: hydrALAZINE HCL 25 MG TAB PO SCH ×2 (16:07→21:03)
[2017-06-22] MEDS: hydrALAZINE HCL 20 MG/ML VIAL IV PUSH PRN ×2 (18:06→18:39)
[2017-06-23] VITALS (11 sets, daily range): BP systolic 122–162; BP diastolic 60–88; PULSE 61–78; RESP 20–28; TEMP 97.9–98.7; O2SAT 93–96
[2017-06-23] MEDS: hydrALAZINE HCL 20 MG/ML VIAL IV PUSH PRN (01:15)
[2017-06-23] MEDS: CHLORHEXIDINE GLUCONATE 2 % 1 PACK (2 CLOTHS) TOP SCH (04:00)
[2017-06-23] MEDS: METOPROLOL TARTRATE 50 MG TAB PO SCH ×3 (04:14→21:09)
[2017-06-23] MEDS: MORPHINE SULFATE 4 MG/ML INJ IV PRN ×4 (04:17→21:26)
[2017-06-23] MEDS: hydrALAZINE HCL 25 MG TAB PO SCH ×3 (05:51→21:08)
[2017-06-23] MEDS: SODIUM CHLORIDE 0.9% FLUSH 10 ML FLUSH SCH ×2 (07:19→21:12)
[2017-06-23] MEDS: DOCUSATE SODIUM 50 MG/SENNA 8.6 MG TAB PO SCH ×2 (08:29→21:08)
[2017-06-23] MEDS: FAMOTIDINE 20 MG TAB PO SCH ×2 (08:29→21:08)
--- NOTE | 2017-06-23 08:55 | HHI.CCPN ---
Subjective Remarks/Hospital Course 56 year old female presents with complaints of right upper extremity weakness and bilateral lower extremity weakness. The patient reports a history of lying in bed awake when he had onset of chest pressure and back pain. He reports that the pain felt like an expanding sensation in his chest and back. Then he got up and noticed having tingling in bilateral upper extremities with weakness in the right upper extremity and bilateral lower. He says that he ended up easing himself to the ground. On ambulance services arrival the patient was noted to have paresis of the right upper extremity and numbness to bilateral lower extremities with paralysis of bilateral lower extremities. However, en route to this facility the weakness resolved and during my exam he is a equal strength in all 4 extremities. In the emergency department at the CT of aorta diagnosed type B dissection and patient is admitted to critical care unit for medical management. 06/21 1500 hrs: BP control good after PO lopressor started. Will taper off labetalol drip. Amlodipine added and catapres for prn. CV surgery recommends allowing BP to rise to 140 - some question of temporary spinal cord ischemia during initial event. Neurology Service input appreciated. MRI pending. Peripheral perfusion unimpaired. Celiac axis and SMA widely patent - etiology of lipase elevation unclear. 06/22: Pulse rate control good. BP allowed to rise moderately due to possible episode of cord ischemia. Urine output marginal. 06/23: Convert lopressor to BID dosing. Continue hydralazine and norvasc. Objective Vital Signs Date Time Temp Pulse Resp B/P Pulse Ox O2 Delivery O2 Flow Rate FiO2 06/23/17 07:00 95 Room Air 06/23/17 06:00 65 06/23/17 04:34 14 06/23/17 04:00 98.7 140/77 06/21/17 07:26 21 06/21/17 03:24 2 Intake and Output 06/22/17 06/22/17 06/23/17 08:00 16:00 00:00 Intake Total 100 ml 480 ml 120 ml Output Total 525 ml 525 ml 0 ml Balance -425 ml -45 ml 120 ml Result Diagram: 06/22/17 0351 06/22/17 0351 Imaging Last 24 hours Impressions Chest X-Ray 06/21/17 0218 Signed Impressions: Service Date/Time: Wednesday, June 21, 2017 02:33 - CONCLUSION: 1. Subtle visualization of the known thoracic aortic dissection. 2. The lungs are clear. Syd Segura MD Aorta CTA 06/21/17 0218 Signed Impressions: Service Date/Time: Wednesday, June 21, 2017 02:30 - CONCLUSION: [place] type B aortic dissection which extends down to level of bifurcation. These findings were called to Dr. Murillo in the emergency room at 0255 hours. Syd Segura MD Head CT 06/21/17 0000 Signed Impressions: Service Date/Time: Wednesday, June 21, 2017 02:18 - CONCLUSION: Unremarkable exam. These findings are called to Dr. Murillo at 1431 hrs. Syd Segura MD Objective Remarks GENERAL: Calm. SKIN: Warm and dry. HEAD: Normocephalic. NECK: Supple, trachea midline. CARDIOVASCULAR: Bradycardia at 60, reg rate and rhythm without murmurs, gallops , or rubs. No JVD. RESPIRATORY: Breath sounds equal bilaterally. No accessory muscle use. Clear. No wheezes or crackles. GASTROINTESTINAL: Abdomen soft, non-tender, nondistended. BS active. MUSCULOSKELETAL: No cyanosis, or edema. Well perfused legs. NEURO EXAM: Moves 4 limbs with strength. O X 3, speech clear. A/P Assessment and Plan Type B aortic dissection - extends to abdominal aorta bifurcation - Medical management - Labetalol drip per protocol -> lopressor and norvasc po. Add hydralazine once rate control accomplished. - Cardiothoracic surgery consult Hypertension - Taper off Labetalol drip -> done Acute kidney injury - Unknown baseline creatinine - IV hydration - Strict I's and O's - Monitor creatinine and electrolytes replacement per ICU protocol DVT GI prophylaxis - SCDs - Pepcid - Pharmacological DVT prophylaxis per CT surgeon Overall impression: Acute aortic emergency, possibly involving spinal cord circulation. Responding to aggressive maneuvers to control blood pressure. Mainstay of therapy will be beta blockers. Joey Newton MD Jun 23, 2017 08:55
--- NOTE | 2017-06-23 17:27 | PD.VS.PN ---
Subjective Subjective/Hospital Course Pt adm with aTBAD, pain improved significantly since but still has intermitted back and epigastric pain Legs normal - no more neuro sx Does have occasional headaches Objective Vitals/I&O Date Time Temp Pulse Resp B/P Pulse Ox O2 Delivery O2 Flow Rate FiO2 06/23/17 16:00 68 06/23/17 16:00 98.3 68 20 151/84 95 06/23/17 14:00 65 06/23/17 12:00 98.3 61 21 128/76 94 06/23/17 12:00 61 06/23/17 10:00 62 06/23/17 08:00 98.7 71 25 140/85 96 06/23/17 08:00 71 06/23/17 07:00 95 Room Air 06/23/17 06:00 65 06/23/17 04:34 14 06/23/17 04:00 98.7 73 28 140/77 96 06/23/17 04:00 77 06/23/17 02:00 78 06/23/17 00:00 77 06/23/17 00:00 97.9 77 23 122/60 93 06/22/17 22:00 76 06/22/17 20:00 99.0 79 17 132/77 97 06/22/17 20:00 77 06/22/17 19:00 94 Room Air 06/22/17 18:00 60 06/23/17 06/23/17 06/23/17 07:00 15:00 23:00 Intake Total 120 ml 240 ml Output Total 350 ml 700 ml Balance -230 ml -460 ml Physical Exam Resting comfortably No neuro deficits Imaging Last 48 hours Impressions Thoracic Spine MRI 06/22/17 0000 Signed Impressions: Service Date/Time: June 08:48 - CONCLUSION: 1. Mild to moderate degenerative disc disease. No acute findings. No cord impingement or direct nerve root compression. Yamil Marks MD Cervical Spine MRI 06/22/17 0000 Signed Impressions: Service Date/Time: June 08:48 - CONCLUSION: 1. Moderate degenerative disc disease with slight reversal of normal cervical lordosis. 2. Osteophytes and mild disc protrusions at C4-5-6-7 resulting in mild AP canal stenosis and mild flattening of the anterior surface of the cord. No cord signal abnormality. Yamil Marks MD Assessment and Plan Plan acute TBAD with no malperfusion 1. Needs repeat CTA likely tomorrow (Sat) 2. If that is stable, will arrange f/u in 1m in my clinic with CTA 3. BP control - ideally 110/70 but because of concerns of global malperfusion, a little higher is ok 4. Monitor for recurrent CP/BP; ok to have po pain meds. Gregorio Dixon MD FACS RPVI molder labels [facility] - Heart and Vascular Surgery at [facility] [phone] Gregorio Dixon MD Jun 23, 2017 17:27
[2017-06-23] MEDS: SODIUM CHLORIDE 0.9% FLUSH 10 ML FLUSH PRN (21:27)
[2017-06-24] VITALS (10 sets, daily range): BP systolic 148–180; BP diastolic 84–98; PULSE 63–85; RESP 17–20; TEMP 97.5–98.6; O2SAT 96–99
[2017-06-24] MEDS: MORPHINE SULFATE 4 MG/ML INJ IV PRN ×4 (01:39→20:59)
[2017-06-24] MEDS: SODIUM CHLORIDE 0.9% FLUSH 10 ML FLUSH PRN (01:40)
[2017-06-24] MEDS: hydrALAZINE HCL 20 MG/ML VIAL IV PUSH PRN ×5 (01:45→20:59)
[2017-06-24] MEDS: hydrALAZINE HCL 25 MG TAB PO SCH (04:09)
[2017-06-24] MEDS: cloNIDine HCL 0.1 MG TAB PO PRN ×2 (04:11→17:23)
[2017-06-24] MEDS: CHLORHEXIDINE GLUCONATE 2 % 1 PACK (2 CLOTHS) TOP SCH (04:13)
[2017-06-24] MEDS: DOCUSATE SODIUM 50 MG/SENNA 8.6 MG TAB PO SCH ×2 (10:24→20:52)
[2017-06-24] MEDS: METOPROLOL TARTRATE 50 MG TAB PO SCH ×2 (10:24→20:52)
[2017-06-24] MEDS: FAMOTIDINE 20 MG TAB PO SCH ×2 (10:25→20:52)
[2017-06-24] MEDS: ACETAMINOPHEN 325 MG TAB PO PRN (10:25)
[2017-06-24] MEDS: SODIUM CHLORIDE 0.9% FLUSH 10 ML FLUSH SCH ×2 (10:26→20:53)
--- NOTE | 2017-06-24 11:22 | PD.VS.PN ---
Subjective Subjective/Hospital Course Pt adm with aTBAD, pt still has intermitted back and epigastric pain less than yesterday Main complaint is MAC Neuro intact BP being controlled Objective Vitals/I&O Date Time Temp Pulse Resp B/P Pulse Ox O2 Delivery O2 Flow Rate FiO2 06/24/17 08:00 98.0 81 20 164/85 96 06/24/17 06:54 73 161/86 06/24/17 04:00 180/98 06/24/17 04:00 97.6 80 18 97 06/24/17 01:45 76 166/92 06/24/17 00:00 98.6 66 18 169/91 99 06/23/17 21:00 Room Air 06/23/17 20:00 69 06/23/17 20:00 98.7 72 20 161/79 95 06/23/17 17:20 98.2 66 20 162/88 95 06/23/17 17:18 Room Air 06/23/17 16:00 68 06/23/17 16:00 98.3 68 20 151/84 95 06/23/17 14:00 65 06/23/17 12:00 98.3 61 21 128/76 94 06/23/17 12:00 61 Physical Exam Neuro intact, B UE and LE No chest pain palpable pulses B LE Assessment and Plan Plan acute TBAD with no malperfusion or other complicating factors 1. Needs repeat CTA - I recommend gentle hydration with HCO3 and then CTA C/A/P 2. If that is stable, will arrange f/u in 1m in my clinic with CTA 3. BP control - ideally 110/70 but because of concerns of global malperfusion, a little higher is ok; goal SBP 140 seems reasonable 4. Monitor for recurrent CP/BP; ok to have po pain meds. 5. OOB/PT Gregorio Dixon MD FACS RPVI community midwife [facility] - Heart and Vascular Surgery at [facility] [phone] Gregorio Dixon MD Jun 24, 2017 11:22
[2017-06-24 11:23] LABS: POTASSIUM 3.7 MEQ/L (3.5-5.1)
--- NOTE | 2017-06-24 11:50 | HHI.PR ---
Subjective Remarks in no acute distress. had some headache earlier which has resolved. Objective Vitals Vital Signs Date Time Temp Pulse Resp B/P Pulse Ox O2 Delivery O2 Flow Rate FiO2 06/24/17 08:00 98.0 81 20 164/85 96 06/24/17 06:54 73 161/86 06/24/17 04:00 180/98 06/24/17 04:00 97.6 80 18 97 06/24/17 01:45 76 166/92 06/24/17 00:00 98.6 66 18 169/91 99 06/23/17 21:00 Room Air 06/23/17 20:00 69 06/23/17 20:00 98.7 72 20 161/79 95 06/23/17 17:20 98.2 66 20 162/88 95 06/23/17 17:18 Room Air 06/23/17 16:00 68 06/23/17 16:00 98.3 68 20 151/84 95 06/23/17 14:00 65 06/23/17 12:00 98.3 61 21 128/76 94 06/23/17 12:00 61 I/O 06/23/17 06/23/17 06/23/17 06/24/17 06/24/17 06/24/17 07:00 15:00 23:00 07:00 15:00 23:00 Intake Total 120 ml 240 ml 240 ml Output Total 350 ml 700 ml 300 ml Balance -230 ml -460 ml -60 ml Intake Oral 120 ml 240 ml 240 ml Output Urine Total 350 ml 700 ml 300 ml # Bowel Movements 0 0 Result Diagram: 06/22/17 0351 06/24/17 0920 Imaging Last Impressions Thoracic Spine MRI 06/22/17 0000 Signed Impressions: Service Date/Time: June 08:48 - CONCLUSION: 1. Mild to moderate degenerative disc disease. No acute findings. No cord impingement or direct nerve root compression. Yamil Marks MD Cervical Spine MRI 06/22/17 0000 Signed Impressions: Service Date/Time: June 08:48 - CONCLUSION: 1. Moderate degenerative disc disease with slight reversal of normal cervical lordosis. 2. Osteophytes and mild disc protrusions at C4-5-6-7 resulting in mild AP canal stenosis and mild flattening of the anterior surface of the cord. No cord signal abnormality. Yamil Marks MD Chest X-Ray 06/21/17217 Signed Impressions: Service Date/Time: Wednesday, June 21, 2017 02:33 - CONCLUSION: 1. Subtle visualization of the known thoracic aortic dissection. 2. The lungs are clear. Syd Segura MD Aorta CTA 06/21/17217 Signed Impressions: Service Date/Time: Wednesday, June 21, 2017 02:30 - CONCLUSION: [place] type B aortic dissection which extends down to level of bifurcation. These findings were called to Dr. Murillo in the emergency room at 0255 hours. Syd Segura MD Head CT 06/21/17 0000 Signed Impressions: Service Date/Time: Wednesday, June 21, 2017 02:18 - CONCLUSION: Unremarkable exam. These findings are called to Dr. Murillo at 1431 hrs. Syd Segura MD Objective Remarks GENERAL: This is a well-nourished, well-developed patient, in no apparent distress. CARDIOVASCULAR: Regular rate and regular rhythm without murmurs, gallops, or rubs. RESPIRATORY: Clear to auscultation. Breath sounds equal bilaterally. No wheezes , rales, or rhonchi. GASTROINTESTINAL: Abdomen soft, non-tender, nondistended. Normal, active bowel sounds MUSCULOSKELETAL: Extremities without clubbing, cyanosis, or edema. NEURO: Alert & Oriented x4 to person, place, time, situation. Moves all ext x4 Medications and IVs Current Medications Sodium Chloride 1,000 ml @ 70 mls/hr [id number] ONCE IV Last administered on 02:34; Start 06/21/17 at 02:18; Stop 06/21/17 at 15:22; Status DC Nicardipine HCl/ Sodium Chloride (Cardene Inj/NS 250 ml Inj) 260 ml @ 0 mls/hr TITRATE ONCE IV Last administered on 06/21/17 02:43; Start 06/21/17 at 02:30; Stop 06/21/17 at 02:31; Status DC Iodixanol (VISIPAQUE 320 INJ (Rad CT)) 50 ml STK-MED ONCE IV Last administered on 06/21/17 02:36; Start 06/21/17 at 02:36; Stop 06/21/17 at 02:37; Status DC Labetalol HCl (Trandate Inj) 10 mg ONCE ONCE IV PUSH Last administered on 02:59; Start 06/21/17 at 03:00; Stop 06/21/17 at 03:01; Status DC Labetalol HCl (Trandate Inj) 5 mg ONCE ONCE IV PUSH ; Start 06/21/17 at 03:30; Stop 06/21/17 at 03:31; Status DC Fentanyl Citrate 50 mcg 50 mcg ONCE ONCE IV PUSH Last administered on 04:15; Start 06/21/17 at 03:30; Stop 06/21/17 at 03:31; Status DC Sodium Chloride (NS 1000 ml Inj) 1,000 ml @ 84 mls/hr [id number] IV ; Start at 04:04; Stop 06/21/17 at 15:22; Status DC Sodium Chloride (NS Flush) 2 ml UNSCH PRN .XX FLUSH AFTER USING IV ACCESS Last administered on 06/24/17 01:40; Start 06/21/17 at 04:15 Sodium Chloride (NS Flush) 2 ml BID .XX Last administered on 06/24/17 10:26; Start 06/21/17 at 09:00 Acetaminophen (Tylenol) 650 mg Q6H PRN PO PAIN 1-5 AND/OR FEVER >101F Last administered on 06/24/17 10:25; Start 06/21/17 at 04:15 Morphine Sulfate (Morphine Inj) 2 mg Q2H PRN IV PAIN SCALE 6 TO 10; Start at 04:15; Stop 06/21/17 at 07:50; Status DC Famotidine (Pepcid) 20 mg Q12HR PO Last administered on 06/24/17 10:25; Start 06/21/17 at 09:00 Lorazepam (Ativan Inj) 1 mg Q1H PRN IV Agitation/Sedation; Start 06/21/17 at 04: 15 Ondansetron HCl (Zofran Inj) 4 mg Q6H PRN IV NAUSEA OR VOMITING Last administered on 06/21/17 14:52; Start 06/21/17 at 04:15 Zolpidem Tartrate (Ambien) 5 mg HS PRN PO INSOMNIA; Start 06/21/17 at 04:15 Albuterol/ Ipratropium (Duoneb Neb) 1 ampule Q2HR NEB PRN INH WHEEZING; Start 06/21/17 at 04:15 Miscellaneous Information 1 Q361D XX Last administered on 06/21/17 04:15; Start 06/21/17 at 04:15 Chlorhexidine Gluconate (Chlorhexidine 2% Cloth) 3 pack Taper DAILY@04 TOP Last administered on 06/24/17 04:13; Start 06/22/17 at 04:00; Stop 06/18/18 at 03 :59 Chlorhexidine Gluconate (Chlorhexidine 2% Cloth) 3 pack UNSCH PRN TOP HYGIENIC CARE; Start 06/21/17 at 04:15 Senna/Docusate Sodium (Yanet-Colace) 1 tab BID PO Last administered on 06/24/17 10:24; Start 06/21/17 at 09:00 Magnesium Hydroxide (Milk Of Magnesia Liq) 30 ml Q12H PRN PO MILD - MODERATE CONSTIPATION; Start 06/21/17 at 04:15 Sennosides (Senokot) 17.2 mg Q12H PRN PO MODERATE - SEVERE CONSTIPATION Last administered on 06/23/17 04:22; Start 06/21/17 at 04:15 Bisacodyl (Dulcolax Supp) 10 mg DAILY PRN RECTAL SEVERE CONSITIPATION; Start at 04:15 Lactulose 30 ml 30 ml DAILY PRN PO SEVERE CONSITIPATION Last administered on 08:29; Start 06/21/17 at 04:15 Labetalol HCl/ Sodium Chloride (Trandate Inj/NS Inj) 250 ml @ 0 mls/hr TITRATE IV Last administered on 06/21/17 13:27; Start 06/21/17 at 04:15; Stop 06/23/17 at 11:47; Status DC Metoprolol Tartrate (Lopressor) 50 mg Q8H PO Last administered on 06/22/17 08: 15; Start 06/21/17 at 09:00; Stop 06/22/17 at 15:57; Status DC Amlodipine Besylate (Norvasc) 10 mg DAILY PO Last administered on 06/24/17 10: 25; Start 06/21/17 at 09:00 Morphine Sulfate (Morphine Inj) 4 mg Q2H PRN IV PAIN SCALE 6 TO 10 Last administered on 06/24/17 04:08; Start 06/21/17 at 08:15 Midazolam HCl (Versed Inj) 10 mg ONCE ONCE IM ; Start 06/21/17 at 08:00; Stop at 08:51; Status DC Clonidine (Catapres) 0.1 mg Q6H PRN PO SBP > 140 Last administered on 06/24/17 04:11; Start 06/21/17 at 15:30 Gadodiamide (Omniscan Pf Inj) 16 ml STK-MED ONCE IV Last administered on 09:25; Start 06/22/17 at 09:25; Stop 06/22/17 at 09:26; Status DC Hydralazine HCl (Apresoline Inj) 10 mg Q30M PRN IV PUSH sbp > 140 Last administered on 06/24/17 06:58; Start 06/22/17 at 16:00 Metoprolol Tartrate (Lopressor) 50 mg Q6H PO Last administered on 06/23/17 04: 14; Start 06/22/17 at 16:00; Stop 06/23/17 at 08:51; Status DC Hydralazine HCl (Apresoline) 25 mg Q8HR PO Last administered on 06/24/17 04:09 ; Start 06/22/17 at 16:00 Metoprolol Tartrate (Lopressor) 100 mg Q12HR PO Last administered on 06/24/17 10:24; Start 06/23/17 at 10:00 A/P Assessment and Plan A/P Type B aortic dissection - extends to abdominal aorta bifurcation - Medical management - BP control -vascular surgery following. Hypertension - continue lopressor, amlodipine and hydralazine. -will increase hydralazine if BP remains elevated. Acute kidney injury - Unknown baseline creatinine - IV hydration - Strict I's and O's - Monitor creatinine and electrolytes replacement per ICU protocol DVT GI prophylaxis - SCDs - Pepcid - Pharmacological DVT prophylaxis per CT surgeon Sheba Kilgore MD Jun 24, 2017 11:50
[2017-06-24] MEDS: hydrALAZINE HCL 50 MG TAB PO SCH ×2 (13:28→20:55)
[2017-06-25] VITALS (11 sets, daily range): BP systolic 136–185; BP diastolic 76–105; PULSE 68–91; RESP 18–20; TEMP 97.4–98.8; O2SAT 96–98
[2017-06-25] MEDS: MORPHINE SULFATE 4 MG/ML INJ IV PRN ×5 (00:47→22:48)
[2017-06-25] MEDS: hydrALAZINE HCL 20 MG/ML VIAL IV PUSH PRN ×5 (01:25→22:44)
[2017-06-25] MEDS: CHLORHEXIDINE GLUCONATE 2 % 1 PACK (2 CLOTHS) TOP SCH (04:00)
[2017-06-25] MEDS: hydrALAZINE HCL 50 MG TAB PO SCH ×3 (05:00→20:22)
[2017-06-25] MEDS ORDERED: IOHEXOL 350 MG/ML 10 ML VIAL (for RAD DIAG) IV ONE (08:26)
[2017-06-25] MEDS: FAMOTIDINE 20 MG TAB PO SCH ×2 (09:19→20:22)
[2017-06-25] MEDS: SODIUM CHLORIDE 0.9% FLUSH 10 ML FLUSH SCH ×2 (09:19→20:21)
[2017-06-25] MEDS: METOPROLOL TARTRATE 50 MG TAB PO SCH ×2 (09:19→20:22)
[2017-06-25] MEDS: DOCUSATE SODIUM 50 MG/SENNA 8.6 MG TAB PO SCH ×2 (09:19→20:22)
--- NOTE | 2017-06-25 09:24 | RADRPT ---
EXAM DATE/TIME: 06/25/2017 08:10 [place] COMPARISON: CTA THORACIC ABDOMINAL AORTA W 3D RECON, June 21, 2017, 2:30. INDICATIONS : Evaluate acute type B dissection. IV CONTRAST: 100 cc Omnipaque 350 (iohexol) IV RADIATION DOSE: 7.75 CTDIvol (mGy) MEDICAL HISTORY : Hypertension. TBI SURGICAL HISTORY : None. ENCOUNTER: Initial ACUITY: 1 day PAIN SCALE: 4/10 LOCATION: chest TECHNIQUE: Volumetric scanning was performed using a multi-row detector CT scanner. The data was post processed with a variety of visualization algorithms including full volume maximum intensity projection, multi -planar sliding thin slab reformation, curved planar reformation, and surface rendering techniques. Using automated exposure control and adjustment of the mA and/or kV according to patient size, radiat ion dose was kept as low as reasonably achievable to obtain optimal diagnostic quality images. DICOM format image data is available electronically for review and comparison. FINDINGS: LUNGS: There is a new small left pleural effusion with associated compressive atelectasis in the left lower lobe. No pneumothorax is present. MEDIASTINUM: There is left ventricle hypertrophy. No lymphadenopathy is visualized. ABDOMEN: The liver, adrenal glands, kidneys, spleen, and pancreas demonstrate no acute finding. There are bila teral renal cysts measuring up to 6.4 cm on the left and 18 mm on the right. A nonobstructive bowel g as pattern is present. PELVIS: There is trace free fluid in the pelvis. Prostate gland is enlarged. THORACIC AORTA: Ascending aorta is aneurysmal measuring 4.2 cm, stable from the prior study. There is an intimal flap indicating aortic dissection which originates just beyond the origin of the left subclavian artery. The descending thoracic aorta has enlarged compared to the prior study. It measures up to 4.2 cm. At the level of the left inferior pulmonary vein the aorta measures 4.1 x 3.9 cm compared to 3.9 x 3.7 c m previously. Additionally, there is increased density surrounding the distal arch and descending tho racic aorta, new from the prior study. There is opacification of both the true and false lumen. There is wall irregularity at the distal arch. ABDOMINAL AORTA: The abdominal aorta is tortuous measuring up to 3.2 cm in diameter, stable from the prior study. Ther e is opacification of both the true and false lumen. The celiac trunk, superior mesenteric artery, an d renal arteries demonstrate normal opacification. The dissection questionably extends into the proxi mal left renal artery. There is enhancement of the solid organs. CHAR remains opacified. 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 Dissection extends in to the origin of the right common iliac artery. There is a small saccular aneurysm at the bifurcation anteriorly. It measures approximately 1.9 x 0.9 cm. Otherwise, the internal and external iliac arter ies demonstrate no abnormality. CONCLUSION: 1. There is a type B aortic dissection that begins just distal to the origin of the left subclavian a rtery and extends inferiorly into the abdominal aorta and into the proximal right common iliac artery . It questionably also extends into the left renal artery. There is normal perfusion of all of the so lid organs in the abdomen and pelvis and major aortic branches. 2. However, since the examination from 4 days ago the descending thoracic aorta has increased in size . For example at a similar level it currently measures 4.1 x 3.9 cm compared to 3.9 x 3.7 cm previous ly. Additionally, the aortic wall appears irregular at the distal arch and there is mild stranding ar ound the aortic arch and descending aorta that was not present previously. There is a new small simpl e appearing left pleural effusion. 3. 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 The above changes concerning the aortic dissection were discussed with Dr. Dixon. Sanket Warner MD on June 25, 2017 at 8:54 Board Certified Radiologist. This report was verified electronically.
[2017-06-25] MEDS ORDERED: SODIUM CHLOR 0.45% 1000 ML INJ 1,000 ML IV SCH (11:39)
--- NOTE | 2017-06-25 11:44 | PD.VS.PN ---
Subjective Subjective/Hospital Course Pt with persistent, but fewer headaches No other neuro events Did have CTA this morning for routine surveillance of aTBAD. The aorta has degenerated proximally (4mm) and new haziness around proximal aspect Concern for radiographic worsening Objective Vitals/I&O Date Time Temp Pulse Resp B/P Pulse Ox O2 Delivery O2 Flow Rate FiO2 06/25/17 08:00 97.9 85 20 136/93 97 06/25/17 05:55 140/78 06/25/17 04:00 Room Air 06/25/17 04:00 97.9 75 20 174/86 96 06/25/17 01:24 98.8 77 19 149/76 98 06/25/17 00:00 Room Air 06/25/17 00:00 98.0 77 19 174/93 97 06/24/17 20:00 97.5 85 17 165/93 99 06/24/17 20:00 82 06/24/17 20:00 Room Air 06/24/17 18:07 148/92 06/24/17 17:23 174/84 06/24/17 16:00 97.5 83 20 159/96 96 06/24/17 12:00 97.5 63 20 155/94 96 06/25/17 06/25/17 06/25/17 07:00 15:00 23:00 Intake Total 120 ml Output Total 400 ml Balance -280 ml Physical Exam Resting comfortably, no distress palpable pulses Imaging Last 48 hours Impressions Aorta CTA 06/25/17 0000 Signed Impressions: Service Date/Time: Sunday, June 25, 2017 08:10 - CONCLUSION: 1. There is a type B aortic dissection that begins just distal to the origin of the left subclavian artery and extends inferiorly into the abdominal aorta and into the proximal right common iliac artery. It questionably also extends into the left renal artery. There is normal perfusion of all of the solid organs in the abdomen and pelvis and major aortic branches. 2. However, since the examination from 4 days ago the descending thoracic aorta has increased in size. For example at a similar level it currently measures 4.1 x 3.9 cm compared to 3.9 x 3.7 cm previously. Additionally, the aortic wall appears irregular at the distal arch and there is mild stranding around the aortic arch and descending aorta that was not present previously. There is a new small simple appearing left pleural effusion. 3. 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 The above changes concerning the aortic dissection were discussed with Dr. Dixon. Sanket Warner MD Assessment and Plan Plan acute TBAD with no malperfusion but acute worsening radiographically 1. I talked with the patient and his primary attending physician about the option of a TEVAR, including a LEFT carotid-subclavian bypass. Will perform this on Monday. The patient understands the risks of worsening dissection, stroke and being paralyzed. 2. Continue BP control and neuro checks 3. Will ask IR to place spinal drain either Monday afternoon or Monday pre-op in effort to diminish risk of spinal cord ischemia. Gregorio Dixon MD FACS RPVI vamp strap ironer [facility] - [facility] V[facility] at [facility] [phone] Gregorio Dixon MD Jun 25, 2017 11:44
[2017-06-25] MEDS ORDERED: ceFAZolin 2 GM PREMIX 50 ML IV SCH (11:45)
--- NOTE | 2017-06-25 11:53 | HHI.PR ---
Subjective Remarks resting comfortably with no acute distress. denies pain. feels weak. Objective Vitals Vital Signs Date Time Temp Pulse Resp B/P Pulse Ox O2 Delivery O2 Flow Rate FiO2 06/25/17 08:00 97.9 85 20 136/93 97 06/25/17 05:55 140/78 06/25/17 04:00 Room Air 06/25/17 04:00 97.9 75 20 174/86 96 06/25/17 01:24 98.8 77 19 149/76 98 06/25/17 00:00 Room Air 06/25/17 00:00 98.0 77 19 174/93 97 06/24/17 20:00 97.5 85 17 165/93 99 06/24/17 20:00 82 06/24/17 20:00 Room Air 06/24/17 18:07 148/92 06/24/17 17:23 174/84 06/24/17 16:00 97.5 83 20 159/96 96 06/24/17 12:00 97.5 63 20 155/94 96 I/O 06/24/17 06/24/17 06/24/17 06/25/17 06/25/17 06/25/17 07:00 15:00 23:00 07:00 15:00 23:00 Intake Total 240 ml 720 ml 720 ml 120 ml Output Total 300 ml 500 ml 400 ml Balance -60 ml 720 ml 220 ml -280 ml Intake Oral 240 ml 720 ml 720 ml 120 ml Output Urine Total 300 ml 500 ml 400 ml # Voids 2 # Bowel Movements 1 0 0 Result Diagram: 06/22/17 0351 06/24/17 0920 Imaging Last Impressions Aorta CTA 06/25/17 0000 Signed Impressions: Service Date/Time: Sunday, June 25, 2017 08:10 - CONCLUSION: 1. There is a type B aortic dissection that begins just distal to the origin of the left subclavian artery and extends inferiorly into the abdominal aorta and into the proximal right common iliac artery. It questionably also extends into the left renal artery. There is normal perfusion of all of the solid organs in the abdomen and pelvis and major aortic branches. 2. However, since the examination from 4 days ago the descending thoracic aorta has increased in size. For example at a similar level it currently measures 4.1 x 3.9 cm compared to 3.9 x 3.7 cm previously. Additionally, the aortic wall appears irregular at the distal arch and there is mild stranding around the aortic arch and descending aorta that was not present previously. There is a new small simple appearing left pleural effusion. 3. 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 The above changes concerning the aortic dissection were discussed with Dr. Dixon. Sanket Warner MD Thoracic Spine MRI 06/22/17 Signed Impressions: Service Date/Time: June 08:48 - CONCLUSION: 1. Mild to moderate degenerative disc disease. No acute findings. No cord impingement or direct nerve root compression. Yamil Marks MD Cervical Spine MRI 06/22/17 Signed Impressions: Service Date/Time: , June 22, 2017 08:48 - CONCLUSION: 1. Moderate degenerative disc disease with slight reversal of normal cervical lordosis. 2. Osteophytes and mild disc protrusions at C4-5-6-7 resulting in mild AP canal stenosis and mild flattening of the anterior surface of the cord. No cord signal abnormality. Yamil Marks MD Chest X-Ray 06/21/17 0218 Signed Impressions: Service Date/Time: Wednesday, June 21, 2017 02:33 - CONCLUSION: 1. Subtle visualization of the known thoracic aortic dissection. 2. The lungs are clear. Syd Segura MD Head CT 06/21/17 Signed Impressions: Service Date/Time: Wednesday, June 21, 2017 02:18 - CONCLUSION: Unremarkable exam. These findings are called to Dr. Murillo at 1431 hrs. Syd Segura MD Objective Remarks GENERAL: This is a well-nourished, well-developed patient, in no apparent distress. CARDIOVASCULAR: Regular rate and regular rhythm without murmurs, gallops, or rubs. RESPIRATORY: Clear to auscultation. Breath sounds equal bilaterally. No wheezes , rales, or rhonchi. GASTROINTESTINAL: Abdomen soft, non-tender, nondistended. Normal, active bowel sounds MUSCULOSKELETAL: Extremities without clubbing, cyanosis, or edema. NEURO: Alert & Oriented x4 to person, place, time, situation. Moves all ext x4 Medications and IVs Current Medications Sodium Chloride 1,000 ml @ 70 mls/hr [id number] ONCE IV Last administered on 02:34; Start 06/21/17 at 02:18; Stop 06/21/17 at 15:22; Status DC Nicardipine HCl/ Sodium Chloride (Cardene Inj/NS 250 ml Inj) 260 ml @ 0 mls/hr TITRATE ONCE IV Last administered on 06/21/17 02:43; Start 06/21/17 at 02:30; Stop 06/21/17 at 02:31; Status DC Iodixanol (VISIPAQUE 320 INJ (Rad CT)) 50 ml STK-MED ONCE IV Last administered on 06/21/17 02:36; Start 06/21/17 at 02:36; Stop 06/21/17 at 02:37; Status DC Labetalol HCl (Trandate Inj) 10 mg ONCE ONCE IV PUSH Last administered on 02:59; Start 06/21/17 at 03:00; Stop 06/21/17 at 03:01; Status DC Labetalol HCl (Trandate Inj) 5 mg ONCE ONCE IV PUSH ; Start 06/21/17 at 03:30; Stop 06/21/17 at 03:31; Status DC Fentanyl Citrate 50 mcg 50 mcg ONCE ONCE IV PUSH Last administered on 04:15; Start 06/21/17 at 03:30; Stop 06/21/17 at 03:31; Status DC Sodium Chloride (NS 1000 ml Inj) 1,000 ml @ 84 mls/hr [id number] IV ; Start at 04:04; Stop 06/21/17 at 15:22; Status DC Sodium Chloride (NS Flush) 2 ml UNSCH PRN .XX FLUSH AFTER USING IV ACCESS Last administered on 06/24/17 01:40; Start 06/21/17 at 04:15 Sodium Chloride (NS Flush) 2 ml BID .XX Last administered on 06/25/17 09:19; Start 06/21/17 at 09:00 Acetaminophen (Tylenol) 650 mg Q6H PRN PO PAIN 1-5 AND/OR FEVER >101F Last administered on 06/24/17 10:25; Start 06/21/17 at 04:15 Morphine Sulfate (Morphine Inj) 2 mg Q2H PRN IV PAIN SCALE 6 TO 10; Start at 04:15; Stop 06/21/17 at 07:50; Status DC Famotidine (Pepcid) 20 mg Q12HR PO Last administered on 06/25/17 09:19; Start 06/21/17 at 09:00 Lorazepam (Ativan Inj) 1 mg Q1H PRN IV Agitation/Sedation; Start 06/21/17 at 04: 15 Ondansetron HCl (Zofran Inj) 4 mg Q6H PRN IV NAUSEA OR VOMITING Last administered on 06/21/17 14:52; Start 06/21/17 at 04:15 Zolpidem Tartrate (Ambien) 5 mg HS PRN PO INSOMNIA; Start 06/21/17 at 04:15 Albuterol/ Ipratropium (Duoneb Neb) 1 ampule Q2HR NEB PRN INH WHEEZING; Start 06/21/17 at 04:15 Miscellaneous Information 1 Q361D XX Last administered on 06/21/17 04:15; Start 06/21/17 at 04:15 Chlorhexidine Gluconate (Chlorhexidine 2% Cloth) 3 pack Taper DAILY@04 TOP Last administered on 06/25/17 04:00; Start 06/22/17 at 04:00; Stop 06/18/18 at 03 :59 Chlorhexidine Gluconate (Chlorhexidine 2% Cloth) 3 pack UNSCH PRN TOP HYGIENIC CARE; Start 06/21/17 at 04:15 Senna/Docusate Sodium (Yanet-Colace) 1 tab BID PO Last administered on 06/25/17 09:19; Start 06/21/17 at 09:00 Magnesium Hydroxide (Milk Of Magnesia Liq) 30 ml Q12H PRN PO MILD - MODERATE CONSTIPATION; Start 06/21/17 at 04:15 Sennosides (Senokot) 17.2 mg Q12H PRN PO MODERATE - SEVERE CONSTIPATION Last administered on 06/23/17 04:22; Start 06/21/17 at 04:15 Bisacodyl (Dulcolax Supp) 10 mg DAILY PRN RECTAL SEVERE CONSITIPATION; Start at 04:15 Lactulose 30 ml 30 ml DAILY PRN PO SEVERE CONSITIPATION Last administered on 08:29; Start 06/21/17 at 04:15 Labetalol HCl/ Sodium Chloride (Trandate Inj/NS Inj) 250 ml @ 0 mls/hr TITRATE IV Last administered on 06/21/17 13:27; Start 06/21/17 at 04:15; Stop 06/23/17 at 11:47; Status DC Metoprolol Tartrate (Lopressor) 50 mg Q8H PO Last administered on 06/22/17 08: 15; Start 06/21/17 at 09:00; Stop 06/22/17 at 15:57; Status DC Amlodipine Besylate (Norvasc) 10 mg DAILY PO Last administered on 06/25/17 09: 19; Start 06/21/17 at 09:00 Morphine Sulfate (Morphine Inj) 4 mg Q2H PRN IV PAIN SCALE 6 TO 10 Last administered on 06/25/17 04:58; Start 06/21/17 at 08:15 Midazolam HCl (Versed Inj) 10 mg ONCE ONCE IM ; Start 06/21/17 at 08:00; Stop at 08:51; Status DC Clonidine (Catapres) 0.1 mg Q6H PRN PO SBP > 140 Last administered on 06/24/17 17:23; Start 06/21/17 at 15:30 Gadodiamide (Omniscan Pf Inj) 16 ml STK-MED ONCE IV Last administered on 09:25; Start 06/22/17 at 09:25; Stop 06/22/17 at 09:26; Status DC Hydralazine HCl (Apresoline Inj) 10 mg Q30M PRN IV PUSH sbp > 140 Last administered on 06/25/17 04:58; Start 06/22/17 at 16:00 Metoprolol Tartrate (Lopressor) 50 mg Q6H PO Last administered on 06/23/17 04: 14; Start 06/22/17 at 16:00; Stop 06/23/17 at 08:51; Status DC Hydralazine HCl (Apresoline) 25 mg Q8HR PO Last administered on 06/24/17 04:09 ; Start 06/22/17 at 16:00; Stop 06/24/17 at 11:52; Status DC Metoprolol Tartrate (Lopressor) 100 mg Q12HR PO Last administered on 06/25/17 09:19; Start 06/23/17 at 10:00 Hydralazine HCl (Apresoline) 50 mg Q8HR PO Last administered on 06/25/17 05:00 ; Start 06/24/17 at 14:00 Iohexol 100 ml 100 ml STK-MED ONCE IV Last administered on 06/25/17 08:26; Start 06/25/17 at 08:26; Stop 06/25/17 at 08:27; Status DC Sodium Chloride 1,000 ml @ 0 mls/hr Q0M IV ; Start 06/25/17 at 11:39; Status UNV Cefazolin Sodium/ Dextrose (Ancef 2 Gm Premix) 50 ml @ 100 mls/hr KILN [employer]ER IV ; Start 06/25/17 at 11:45; Stop 06/29/17 at 11:44; Status UNV A/P Assessment and Plan A/P Type B aortic dissection - extends to abdominal aorta bifurcation - d/w today and plan for LEFT carotid-subclavian bypass on Monday. - BP control. -vascular surgery following. Hypertension- BP overall better. - continue lopressor, amlodipine and hydralazine. Acute kidney injury - Unknown baseline creatinine - IV hydration - Strict I's and O's - Monitor creatinine and electrolytes replacement per ICU protocol DVT GI prophylaxis - SCDs - Pepcid - Pharmacological DVT prophylaxis per CT surgeon Sheba Kilgore MD Jun 25, 2017 11:53
[2017-06-25] MEDS: cloNIDine HCL 0.1 MG TAB PO PRN ×2 (13:26→19:02)
[2017-06-25 16:02] LABS: BICARBONATE 17.4 MEQ/L (21.0-32.0); POTASSIUM 3.9 MEQ/L (3.5-5.1)
[2017-06-26] VITALS (13 sets, daily range): BP systolic 150–194; BP diastolic 87–104; PULSE 68–96; RESP 16–22; TEMP 96.7–98.7; O2SAT 93–98
[2017-06-26] MEDS: cloNIDine HCL 0.1 MG TAB PO PRN ×3 (03:18→19:32)
[2017-06-26] MEDS: hydrALAZINE HCL 20 MG/ML VIAL IV PUSH PRN ×6 (03:18→17:18)
[2017-06-26] MEDS: MORPHINE SULFATE 4 MG/ML INJ IV PRN ×4 (03:19→19:39)
[2017-06-26] MEDS: CHLORHEXIDINE GLUCONATE 2 % 1 PACK (2 CLOTHS) TOP SCH (03:23)
[2017-06-26] MEDS: hydrALAZINE HCL 50 MG TAB PO SCH ×3 (05:46→21:51)
--- NOTE | 2017-06-26 08:32 | HHI.PR ---
Subjective Remarks resting comfortably with no distress. denies chest pain, headache,dizziness. noted that his BP's was on high side over night which he relates to his anxiety. no other complaints. Objective Vitals Vital Signs Date Time Temp Pulse Resp B/P Pulse Ox O2 Delivery O2 Flow Rate FiO2 06/26/17 05:51 162/88 06/26/17 04:00 98.7 73 18 155/94 98 06/26/17 00:00 Room Air 06/26/17 00:00 98.6 68 16 150/87 95 06/25/17 23:19 140/82 06/25/17 22:45 150/86 06/25/17 20:00 Room Air 06/25/17 20:00 98.0 91 18 185/105 97 06/25/17 16:00 97.4 78 20 170/90 97 06/25/17 12:00 97.8 68 20 158/94 98 06/25/17 09:15 81 I/O 06/25/17 06/25/17 06/25/17 06/26/17 06/26/17 06/26/17 07:00 15:00 23:00 07:00 15:00 23:00 Intake Total 120 ml 280 ml 120 ml Output Total 400 ml 450 ml 300 ml Balance -280 ml -170 ml -180 ml Intake Oral 120 ml 280 ml 120 ml Output Urine Total 400 ml 450 ml 300 ml # Bowel Movements 0 0 0 Result Diagram: 06/22/17 0351 06/25/17 1406 Imaging Last Impressions Aorta CTA 06/25/17 0000 Signed Impressions: Service Date/Time: Sunday, June 25, 2017 08:10 - CONCLUSION: 1. There is a type B aortic dissection that begins just distal to the origin of the left subclavian artery and extends inferiorly into the abdominal aorta and into the proximal right common iliac artery. It questionably also extends into the left renal artery. There is normal perfusion of all of the solid organs in the abdomen and pelvis and major aortic branches. 2. However, since the examination from 4 days ago the descending thoracic aorta has increased in size. For example at a similar level it currently measures 4.1 x 3.9 cm compared to 3.9 x 3.7 cm previously. Additionally, the aortic wall appears irregular at the distal arch and there is mild stranding around the aortic arch and descending aorta that was not present previously. There is a new small simple appearing left pleural effusion. 3. 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 The above changes concerning the aortic dissection were discussed with Dr. Dixon. Sanket Warner MD Thoracic Spine MRI 06/22/17 0000 Signed Impressions: Service Date/Time: June 08:48 - CONCLUSION: 1. Mild to moderate degenerative disc disease. No acute findings. No cord impingement or direct nerve root compression. Yamil Marks MD Cervical Spine MRI 06/22/17 0000 Signed Impressions: Service Date/Time: June 08:48 - CONCLUSION: 1. Moderate degenerative disc disease with slight reversal of normal cervical lordosis. 2. Osteophytes and mild disc protrusions at C4-5-6-7 resulting in mild AP canal stenosis and mild flattening of the anterior surface of the cord. No cord signal abnormality. Yamil Marks MD Chest X-Ray 06/21/178 Signed Impressions: Service Date/Time: Wednesday, June 21, 2017 02:33 - CONCLUSION: 1. Subtle visualization of the known thoracic aortic dissection. 2. The lungs are clear. Syd Segura MD Head CT 06/21/17 Signed Impressions: Service Date/Time: Wednesday, June 21, 2017 02:18 - CONCLUSION: Unremarkable exam. These findings are called to Dr. Murillo at 1431 hrs. Syd Segura MD Objective Remarks GENERAL: This is a well-nourished, well-developed patient, in no apparent distress. CARDIOVASCULAR: Regular rate and regular rhythm without murmurs, gallops, or rubs. RESPIRATORY: Clear to auscultation. Breath sounds equal bilaterally. No wheezes , rales, or rhonchi. GASTROINTESTINAL: Abdomen soft, non-tender, nondistended. Normal, active bowel sounds MUSCULOSKELETAL: Extremities without clubbing, cyanosis, or edema. NEURO: Alert & Oriented x4 to person, place, time, situation. Moves all ext x4 Medications and IVs Current Medications Sodium Chloride 1,000 ml @ 70 mls/hr [id number] ONCE IV Last administered on t 02:34; Start 06/21/17 at 02:18; Stop 06/21/17 at 15:22; Status DC Nicardipine HCl/ Sodium Chloride (Cardene Inj/NS 250 ml Inj) 260 ml @ 0 mls/hr TITRATE ONCE IV Last administered on 06/21/17 02:43; Start 06/21/17 at 02:30; Stop 06/21/17 at 02:31; Status DC Iodixanol (VISIPAQUE 320 INJ (Rad CT)) 50 ml STK-MED ONCE IV Last administered on 06/21/17 02:36; Start 06/21/17 at 02:36; Stop 06/21/17 at 02:37; Status DC Labetalol HCl (Trandate Inj) 10 mg ONCE ONCE IV PUSH Last administered on 02:59; Start 06/21/17 at 03:00; Stop 06/21/17 at 03:01; Status DC Labetalol HCl (Trandate Inj) 5 mg ONCE ONCE IV PUSH ; Start 06/21/17 at 03:30; Stop 06/21/17 at 03:31; Status DC Fentanyl Citrate 50 mcg 50 mcg ONCE ONCE IV PUSH Last administered on 04:15; Start 06/21/17 at 03:30; Stop 06/21/17 at 03:31; Status DC Sodium Chloride (NS 1000 ml Inj) 1,000 ml @ 84 mls/hr [id number] IV ; Start at 04:04; Stop 06/21/17 at 15:22; Status DC Sodium Chloride (NS Flush) 2 ml UNSCH PRN .XX FLUSH AFTER USING IV ACCESS Last administered on 06/24/17 01:40; Start 06/21/17 at 04:15 Sodium Chloride (NS Flush) 2 ml BID .XX Last administered on 06/25/17 20:21; Start 06/21/17 at 09:00 Acetaminophen (Tylenol) 650 mg Q6H PRN PO PAIN 1-5 AND/OR FEVER >101F Last administered on 06/24/17 10:25; Start 06/21/17 at 04:15 Morphine Sulfate (Morphine Inj) 2 mg Q2H PRN IV PAIN SCALE 6 TO 10; Start at 04:15; Stop 06/21/17 at 07:50; Status DC Famotidine (Pepcid) 20 mg Q12HR PO Last administered on 06/25/17 20:22; Start 06/21/17 at 09:00 Lorazepam (Ativan Inj) 1 mg Q1H PRN IV Agitation/Sedation; Start 06/21/17 at 04: 15 Ondansetron HCl (Zofran Inj) 4 mg Q6H PRN IV NAUSEA OR VOMITING Last administered on 06/21/17 14:52; Start 06/21/17 at 04:15 Zolpidem Tartrate (Ambien) 5 mg HS PRN PO INSOMNIA Last administered on 20:22; Start 06/21/17 at 04:15 Albuterol/ Ipratropium (Duoneb Neb) 1 ampule Q2HR NEB PRN INH WHEEZING; Start 06/21/17 at 04:15 Miscellaneous Information 1 [id number] XX Last administered on 06/21/17 04:15; Start 06/21/17 at 04:15 Chlorhexidine Gluconate (Chlorhexidine 2% Cloth) 3 pack Taper DAILY@04 TOP Last administered on 06/26/17 03:23; Start 06/22/17 at 04:00; Stop 06/18/18 at 03 :59 Chlorhexidine Gluconate (Chlorhexidine 2% Cloth) 3 pack UNSCH PRN TOP HYGIENIC CARE; Start 06/21/17 at 04:15 Senna/Docusate Sodium (Yanet-Colace) 1 tab BID PO Last administered on 06/25/17 20:22; Start 06/21/17 at 09:00 Magnesium Hydroxide (Milk Of Magnesia Liq) 30 ml Q12H PRN PO MILD - MODERATE CONSTIPATION; Start 06/21/17 at 04:15 Sennosides (Senokot) 17.2 mg Q12H PRN PO MODERATE - SEVERE CONSTIPATION Last administered on 06/23/17 04:22; Start 06/21/17 at 04:15 Bisacodyl (Dulcolax Supp) 10 mg DAILY PRN RECTAL SEVERE CONSITIPATION; Start at 04:15 Lactulose 30 ml 30 ml DAILY PRN PO SEVERE CONSITIPATION Last administered on 08:29; Start 06/21/17 at 04:15 Labetalol HCl/ Sodium Chloride (Trandate Inj/NS Inj) 250 ml @ 0 mls/hr TITRATE IV Last administered on 06/21/17 13:27; Start 06/21/17 at 04:15; Stop 06/23/17 at 11:47; Status DC Metoprolol Tartrate (Lopressor) 50 mg Q8H PO Last administered on 06/22/17 08: 15; Start 06/21/17 at 09:00; Stop 06/22/17 at 15:57; Status DC Amlodipine Besylate (Norvasc) 10 mg DAILY PO Last administered on 06/25/17 09: 19; Start 06/21/17 at 09:00 Morphine Sulfate (Morphine Inj) 4 mg Q2H PRN IV PAIN SCALE 6 TO 10 Last administered on 06/26/17 05:46; Start 06/21/17 at 08:15 Midazolam HCl (Versed Inj) 10 mg ONCE ONCE IM ; Start 06/21/17 at 08:00; Stop at 08:51; Status DC Clonidine (Catapres) 0.1 mg Q6H PRN PO SBP > 140 Last administered on 06/26/17 03:18; Start 06/21/17 at 15:30 Gadodiamide (Omniscan Pf Inj) 16 ml STK-MED ONCE IV Last administered on 09:25; Start 06/22/17 at 09:25; Stop 06/22/17 at 09:26; Status DC Hydralazine HCl (Apresoline Inj) 10 mg Q30M PRN IV PUSH sbp > 140 Last administered on 06/26/17 05:46; Start 06/22/17 at 16:00 Metoprolol Tartrate (Lopressor) 50 mg Q6H PO Last administered on 06/23/17 04: 14; Start 06/22/17 at 16:00; Stop 06/23/17 at 08:51; Status DC Hydralazine HCl (Apresoline) 25 mg Q8HR PO Last administered on 06/24/17 04:09 ; Start 06/22/17 at 16:00; Stop 06/24/17 at 11:52; Status DC Metoprolol Tartrate (Lopressor) 100 mg Q12HR PO Last administered on 06/25/17 20:22; Start 06/23/17 at 10:00 Hydralazine HCl (Apresoline) 50 mg Q8HR PO Last administered on 06/26/17 05:46 ; Start 06/24/17 at 14:00 Iohexol 100 ml 100 ml STK-MED ONCE IV Last administered on 06/25/17 08:26; Start 06/25/17 at 08:26; Stop 06/25/17 at 08:27; Status DC Sodium Chloride 1,000 ml @ 0 mls/hr Q0M IV ; Start 06/25/17 at 11:39 Cefazolin Sodium/ Dextrose (Ancef 2 Gm Premix) 50 ml @ 100 mls/hr CURRICULUM DIRECTOR IV ; Start 06/25/17 at 11:45; Stop 06/29/17 at 11:44 A/P Assessment and Plan A/P Type B aortic dissection - extends to abdominal aorta bifurcation - plan for LEFT carotid-subclavian bypass on Monday. -IR consulted for lumbar drain - BP control. -vascular surgery following. Hypertension- - continue lopressor, amlodipine and hydralazine. -continue to monitor; will consider increasing hydralazine if BP remains elevated. Acute kidney injury- has improved. - Unknown baseline creatinine - IV hydration - Strict I's and O's - Monitor creatinine and electrolytes replacement per ICU protocol DVT GI prophylaxis - SCDs - Pepcid - Pharmacological DVT prophylaxis per CT surgeon Sheba Kilgore MD Jun 26, 2017 08:32
[2017-06-26] MEDS: METOPROLOL TARTRATE 50 MG TAB PO SCH ×2 (08:51→21:52)
[2017-06-26] MEDS: DOCUSATE SODIUM 50 MG/SENNA 8.6 MG TAB PO SCH ×2 (08:51→21:52)
[2017-06-26] MEDS: FAMOTIDINE 20 MG TAB PO SCH ×2 (08:51→21:52)
[2017-06-26] MEDS: SODIUM CHLORIDE 0.9% FLUSH 10 ML FLUSH SCH ×2 (08:55→21:53)
[2017-06-26 09:57] LABS: BASOPHIL % 0.4 % (0.0-2.0); EOSINOPHIL # 0.1 TH/MM3 (0-0.4); EOSINOPHIL % 1.2 % (0.0-4.0); HEMATOCRIT 47.1 % (39.0-51.0); HEMO FLAGS DIFF FINAL; LYMPH % 12.8 % (9.0-44.0); LYMPHOCYTE # 1.4 TH/MM3 (1.0-4.8); MEAN CELL VOLUME 94.1 FL (80.0-100.0); MEAN CORPUSCULAR HEMOGLOBIN 32.9 PG (27.0-34.0); MONO % 11.9 % (0.0-8.0); NEUT % 73.7 % (16.0-70.0); PLATELET COUNT 251 TH/MM3 (150-450); RED BLOOD COUNT 5.01 MIL/MM3 (4.50-5.90); RED CELL DISTRIBUTION WIDTH 12.8 % (11.6-17.2); WHITE BLOOD COUNT 10.8 TH/MM3 (4.0-11.0)
[2017-06-26 10:01] LABS: APTT (PATIENT) 29.9 SEC (24.3-30.1); INTERNATIONAL NORMALIZED RATIO 1.1 RATIO
[2017-06-26 10:20] LABS: POTASSIUM 3.4 MEQ/L (3.5-5.1)
--- NOTE | 2017-06-26 12:16 | PD.VS.PN ---
Subjective Subjective/Hospital Course Pt in bed resting Denies back/abdominal pain Objective Vitals/I&O Date Time Temp Pulse Resp B/P Pulse Ox O2 Delivery O2 Flow Rate FiO2 06/26/17 08:10 81 06/26/17 08:00 97.3 94 20 179/93 95 06/26/17 05:51 162/88 06/26/17 04:00 98.7 73 18 155/94 98 06/26/17 00:00 Room Air 06/26/17 00:00 98.6 68 16 150/87 95 06/25/17 23:19 140/82 06/25/17 22:45 150/86 06/25/17 20:00 Room Air 06/25/17 20:00 98.0 91 18 185/105 97 06/25/17 16:00 97.4 78 20 170/90 97 06/26/17 06/26/17 06/26/17 07:00 15:00 23:00 Intake Total 120 ml Output Total 300 ml Balance -180 ml Physical Exam Pt alert in NAD Denies Abdominal/Back Pain Abdomen S/NT Laboratory Laboratory Tests Test 06/25/17 06/26/17 14:06 08:57 Sodium Level 136 139 Potassium Level 3.9 3.4 Chloride Level 105 102 Carbon Dioxide Level 17.4 26.0 Anion Gap 14 11 Blood Urea Nitrogen 24 26 Creatinine 1.26 1.38 Estimat Glomerular Filtration 59 53 Rate Random Glucose 106 109 Calcium Level 8.9 9.4 White Blood Count 10.8 Red Blood Count 5.01 Hemoglobin 16.5 Hematocrit 47.1 Mean Corpuscular Volume 94.1 Mean Corpuscular Hemoglobin 32.9 Mean Corpuscular Hemoglobin 35.0 Concent Red Cell Distribution Width 12.8 Platelet Count 251 Mean Platelet Volume 9.5 Neutrophils (%) (Auto) 73.7 Lymphocytes (%) (Auto) 12.8 Monocytes (%) (Auto) 11.9 Eosinophils (%) (Auto) 1.2 Basophils (%) (Auto) 0.4 Neutrophils # (Auto) 8.0 Lymphocytes # (Auto) 1.4 Monocytes # (Auto) 1.3 Eosinophils # (Auto) 0.1 Basophils # (Auto) 0.0 CBC Comment DIFF FINAL Differential Comment Prothrombin Time 12.0 Prothromb Time International 1.1 Ratio Activated Partial 29.9 Thromboplast Time Imaging Last 48 hours Impressions Aorta CTA 06/25/17 0000 Signed Impressions: Service Date/Time: Sunday, June 25, 2017 08:10 - CONCLUSION: 1. There is a type B aortic dissection that begins just distal to the origin of the left subclavian artery and extends inferiorly into the abdominal aorta and into the proximal right common iliac artery. It questionably also extends into the left renal artery. There is normal perfusion of all of the solid organs in the abdomen and pelvis and major aortic branches. 2. However, since the examination from 4 days ago the descending thoracic aorta has increased in size. For example at a similar level it currently measures 4.1 x 3.9 cm compared to 3.9 x 3.7 cm previously. Additionally, the aortic wall appears irregular at the distal arch and there is mild stranding around the aortic arch and descending aorta that was not present previously. There is a new small simple appearing left pleural effusion. 3. 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 The above changes concerning the aortic dissection were discussed with Dr. Dixon. Sanket Warner MD Assessment and Plan Plan Acute TBAD with no malperfusion but acute worsening radiographically Plan NPO after midnight Consent signed for carotid-subclavian TEVAR/ placed in the chart The patient understands the risks of worsening dissection, stroke and being paralyzed. Continue BP control and neuro checks IR to place spinal drain either this afternoon or Monday morning pre-op in effort to diminish risk of spinal cord ischemia. Candi MEDLEY [facility] [phone] Candi Mancini Jun 26, 2017 12:16
[2017-06-26] MEDS ORDERED: fentaNYL CITRATE 250 MCG/5 ML AMP ONE (16:02)
[2017-06-26] MEDS ORDERED: MIDAZOLAM HCL 2 MG/2 ML VIAL ONE (16:02)
[2017-06-26] MEDS ORDERED: ceFAZolin 2 GM PREMIX 50 ML ONE (16:09)
--- NOTE | 2017-06-26 17:06 | PD.RAD ---
Post Procedure Progress Note Pre Procedure Diagnosis: (1) Aortic dissection Post Procedure Diagnosis: (1) Aortic dissection Procedure Date: Jun 26, 2017 Supervising Radiologist: Damian Taylor Proceduralist/Assist: Olaf Newton, RT(R), Shannon Rodriguez RT(R)() Anesthesia: Local, Analgesia, Conscious Sedation Plan of Activity Patient to Unit: ROPU Patient Condition: Good See PACS Report for procedural detail/treatment Spinal Procedure Lumbar Drain L3 Puncture Time: 16:24 Findings: Tip @ T7 Damian Taylor MD Jun 26, 2017 17:06
[2017-06-27] VITALS (8 sets, daily range): BP systolic 132–168; BP diastolic 72–97; PULSE 68–86; RESP 16–20; TEMP 97.5–98.3; O2SAT 95–96
[2017-06-27] MEDS: cloNIDine HCL 0.1 MG TAB PO PRN (02:27)
[2017-06-27] MEDS: MORPHINE SULFATE 4 MG/ML INJ IV PRN ×3 (02:30→06:05)
[2017-06-27] MEDS: CHLORHEXIDINE GLUCONATE 2 % 1 PACK (2 CLOTHS) TOP SCH (04:00)
[2017-06-27] MEDS: hydrALAZINE HCL 50 MG TAB PO SCH (06:15)
[2017-06-27] MEDS ORDERED: VANCOMYCIN HCL 1000 MG VIAL ONE (06:43)
[2017-06-27] MEDS ORDERED: ceFAZolin 2 GM PREMIX 50 ML ONE (06:43)
[2017-06-27] MEDS ORDERED: HEPARIN SODIUM - IV 10,000 UNITS/10 ML VIAL ONE (06:43)
[2017-06-27] MEDS ORDERED: PROTAMINE SULFATE 50 MG/5 ML VIAL ONE (06:44)
[2017-06-27] MEDS ORDERED: THROMBIN (TOPICAL) 20,000 UNIT SPRAY KIT ONE (06:44)
[2017-06-27] MEDS ORDERED: DEXMEDETOMIDINE HCL 200 MCG/2 ML VIAL ONE (07:00)
--- NOTE | 2017-06-27 07:10 | PD.VS.PN ---
Pre-operative Note Pre-operative diagnosis: acute TBAD dissection with aneurysmal degeneration on f/u CT Planned procedure: LEFT Carotid-subclavian bypass and TEVAR Interval History: Pt had spinal drain placed by IR last night. Persistently hypertensive but no neuro deficits. Less anxious today and ready for surgery Labs: Laboratory Results Test 06/26/17 08:57 White Blood Count 10.8 TH/MM3 (4.0-11.0) Red Blood Count 5.01 MIL/MM3 (4.50-5.90) Hemoglobin 16.5 GM/DL (13.0-17.0) Hematocrit 47.1 % (39.0-51.0) Mean Corpuscular Volume 94.1 FL (80.0-100.0) Mean Corpuscular Hemoglobin 32.9 PG (27.0-34.0) Mean Corpuscular Hemoglobin 35.0 % Concent (32.0-36.0) Red Cell Distribution Width 12.8 % (11.6-17.2) Platelet Count 251 TH/MM3 (150-450) Mean Platelet Volume 9.5 FL (7.0-11.0) Prothromb Time International 1.1 RATIO Ratio Sodium Level 139 MEQ/L (136-145) Potassium Level 3.4 MEQ/L (3.5-5.1) Chloride Level 102 MEQ/L (98-107) Carbon Dioxide Level 26.0 MEQ/L (21.0-32.0) Anion Gap 11 MEQ/L (5-15) Blood Urea Nitrogen 26 MG/DL (7-18) Random Glucose 109 MG/DL (74-106) Calcium Level 9.4 MG/DL (8.5-10.1) Blood: T&S Imaging: Last Impressions Aorta CTA 06/25/17 0000 Signed Impressions: Service Date/Time: Sunday, June 25, 2017 08:10 - CONCLUSION: 1. There is a type B aortic dissection that begins just distal to the origin of the left subclavian artery and extends inferiorly into the abdominal aorta and into the proximal right common iliac artery. It questionably also extends into the left renal artery. There is normal perfusion of all of the solid organs in the abdomen and pelvis and major aortic branches. 2. However, since the examination from 4 days ago the descending thoracic aorta has increased in size. For example at a similar level it currently measures 4.1 x 3.9 cm compared to 3.9 x 3.7 cm previously. Additionally, the aortic wall appears irregular at the distal arch and there is mild stranding around the aortic arch and descending aorta that was not present previously. There is a new small simple appearing left pleural effusion. 3. 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 The above changes concerning the aortic dissection were discussed with Dr. Dixon. Sanket Warner MD Thoracic Spine MRI 06/22/17 0000 Signed Impressions: Service Date/Time: June 08:48 - CONCLUSION: 1. Mild to moderate degenerative disc disease. No acute findings. No cord impingement or direct nerve root compression. Yamil Marks MD Cervical Spine MRI 06/22/17 Signed Impressions: Service Date/Time: June 08:48 - CONCLUSION: 1. Moderate degenerative disc disease with slight reversal of normal cervical lordosis. 2. Osteophytes and mild disc protrusions at C4-5-6-7 resulting in mild AP canal stenosis and mild flattening of the anterior surface of the cord. No cord signal abnormality. Yamil Marks MD Chest X-Ray 06/21/178 Signed Impressions: Service Date/Time: Wednesday, June 21, 2017 02:33 - CONCLUSION: 1. Subtle visualization of the known thoracic aortic dissection. 2. The lungs are clear. Syd Segura MD Head CT 06/21/17 Signed Impressions: Service Date/Time: Wednesday, June 21, 2017 02:18 - CONCLUSION: Unremarkable exam. These findings are called to Dr. Murillo at 1431 hrs. Syd Segura MD Orders: NPO Vanc 1g IV OCTOR (LOS>48h) Post-operative destination: [facility] Operative site marked: Yes Consent: Informed consent has been obtained from Yamil Mckeon. I have explained the procedure in detail and discussed the risks, benefits, and potential complications. All questions have been answered. He understands all the risks of surgery, including but not limited to stroke, paralysis, worsening of dissection, and need for more surgery Patient contact information: Brother [phone] Gregorio Dixon MD Jun 27, 2017 07:10
[2017-06-27] MEDS ORDERED: HEPARIN SODIUM - SQ 10,000 UNITS/ML VIAL ONE (07:22)
--- NOTE | 2017-06-27 07:30 | HHI.PR ---
Subjective Remarks resting comfortably with no distress. BP still elevated. awaiting surgery today. brother at the bedside. Objective Vitals Vital Signs Date Time Temp Pulse Resp B/P Pulse Ox O2 Delivery O2 Flow Rate FiO2 06/27/17 04:00 97.5 76 20 166/92 96 06/27/17 00:00 97.8 69 20 146/80 96 06/26/17 20:00 98.1 88 20 176/96 95 06/26/17 18:45 96.7 96 18 194/100 95 06/26/17 18:00 92 22 179/88 94 06/26/17 17:35 92 22 166/104 94 06/26/17 17:05 93 22 179/97 95 06/26/17 16:50 96 22 186/103 95 06/26/17 16:00 97.2 83 20 184/94 95 06/26/17 12:00 97.7 78 20 173/94 93 06/26/17 08:10 81 06/26/17 08:00 97.3 94 20 179/93 95 I/O 06/26/17 06/26/17 06/26/17 06/27/17 06/27/17 06/27/17 07:00 15:00 23:00 07:00 15:00 23:00 Intake Total 120 ml 0 ml 240 ml Output Total 300 ml 400 ml Balance -180 ml 0 ml -160 ml Intake Oral 120 ml 0 ml 240 ml Output Urine Total 300 ml 400 ml # Voids 3 2 # Bowel Movements 0 0 Result Diagram: 06/26/17 0857 06/26/17 0857 Imaging Last Impressions Aorta CTA 06/25/17 0000 Signed Impressions: Service Date/Time: Sunday, June 25, 2017 08:10 - CONCLUSION: 1. There is a type B aortic dissection that begins just distal to the origin of the left subclavian artery and extends inferiorly into the abdominal aorta and into the proximal right common iliac artery. It questionably also extends into the left renal artery. There is normal perfusion of all of the solid organs in the abdomen and pelvis and major aortic branches. 2. However, since the examination from 4 days ago the descending thoracic aorta has increased in size. For example at a similar level it currently measures 4.1 x 3.9 cm compared to 3.9 x 3.7 cm previously. Additionally, the aortic wall appears irregular at the distal arch and there is mild stranding around the aortic arch and descending aorta that was not present previously. There is a new small simple appearing left pleural effusion. 3. 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 The above changes concerning the aortic dissection were discussed with Dr. Dixon. Sanket Warner MD Thoracic Spine MRI 06/22/17 Signed Impressions: Service Date/Time: June 08:48 - CONCLUSION: 1. Mild to moderate degenerative disc disease. No acute findings. No cord impingement or direct nerve root compression. Yamil Marks MD Cervical Spine MRI 06/22/17 Signed Impressions: Service Date/Time: June 08:48 - CONCLUSION: 1. Moderate degenerative disc disease with slight reversal of normal cervical lordosis. 2. Osteophytes and mild disc protrusions at C4-5-6-7 resulting in mild AP canal stenosis and mild flattening of the anterior surface of the cord. No cord signal abnormality. Yamil Marks MD Chest X-Ray 06/21/178 Signed Impressions: Service Date/Time: Wednesday, June 21, 2017 02:33 - CONCLUSION: 1. Subtle visualization of the known thoracic aortic dissection. 2. The lungs are clear. Syd Segura MD Head CT 06/21/17 Signed Impressions: Service Date/Time: Wednesday, June 21, 2017 02:18 - CONCLUSION: Unremarkable exam. These findings are called to Dr. Murillo at 1431 hrs. Syd Segura MD Objective Remarks GENERAL: This is a well-nourished, well-developed patient, in no apparent distress. CARDIOVASCULAR: Regular rate and regular rhythm without murmurs, gallops, or rubs. RESPIRATORY: Clear to auscultation. Breath sounds equal bilaterally. No wheezes , rales, or rhonchi. GASTROINTESTINAL: Abdomen soft, non-tender, nondistended. Normal, active bowel sounds MUSCULOSKELETAL: Extremities without clubbing, cyanosis, or edema. NEURO: Alert & Oriented x4 to person, place, time, situation. Moves all ext x4 Medications and IVs Current Medications Sodium Chloride 1,000 ml @ 70 mls/hr [id number] ONCE IV Last administered on 8/2/ 17at 02:34; Start 06/21/17 at 02:18; Stop 06/21/17 at 15:22; Status DC Nicardipine HCl/ Sodium Chloride (Cardene Inj/NS 250 ml Inj) 260 ml @ 0 mls/hr TITRATE ONCE IV Last administered on 06/21/17 02:43; Start 06/21/17 at 02:30; Stop 06/21/17 at 02:31; Status DC Iodixanol (VISIPAQUE 320 INJ (Rad CT)) 50 ml STK-MED ONCE IV Last administered on 06/21/17 02:36; Start 06/21/17 at 02:36; Stop 06/21/17 at 02:37; Status DC Labetalol HCl (Trandate Inj) 10 mg ONCE ONCE IV PUSH Last administered on 02:59; Start 06/21/17 at 03:00; Stop 06/21/17 at 03:01; Status DC Labetalol HCl (Trandate Inj) 5 mg ONCE ONCE IV PUSH ; Start 06/21/17 at 03:30; Stop 06/21/17 at 03:31; Status DC Fentanyl Citrate 50 mcg 50 mcg ONCE ONCE IV PUSH Last administered on 04:15; Start 06/21/17 at 03:30; Stop 06/21/17 at 03:31; Status DC Sodium Chloride (NS 1000 ml Inj) 1,000 ml @ 84 mls/hr [id number] IV ; Start at 04:04; Stop 06/21/17 at 15:22; Status DC Sodium Chloride (NS Flush) 2 ml UNSCH PRN .XX FLUSH AFTER USING IV ACCESS Last administered on 06/24/17 01:40; Start 06/21/17 at 04:15 Sodium Chloride (NS Flush) 2 ml BID .XX Last administered on 06/26/17 21:53; Start 06/21/17 at 09:00 Acetaminophen (Tylenol) 650 mg Q6H PRN PO PAIN 1-5 AND/OR FEVER >101F Last administered on 06/24/17 10:25; Start 06/21/17 at 04:15 Morphine Sulfate (Morphine Inj) 2 mg Q2H PRN IV PAIN SCALE 6 TO 10; Start at 04:15; Stop 06/21/17 at 07:50; Status DC Famotidine (Pepcid) 20 mg Q12HR PO Last administered on 06/26/17 21:52; Start 06/21/17 at 09:00 Lorazepam (Ativan Inj) 1 mg Q1H PRN IV Agitation/Sedation; Start 06/21/17 at 04: 15 Ondansetron HCl (Zofran Inj) 4 mg Q6H PRN IV NAUSEA OR VOMITING Last administered on 06/21/17 14:52; Start 06/21/17 at 04:15 Zolpidem Tartrate (Ambien) 5 mg HS PRN PO INSOMNIA Last administered on 20:22; Start 06/21/17 at 04:15 Albuterol/ Ipratropium (Duoneb Neb) 1 ampule Q2HR NEB PRN INH WHEEZING; Start 06/21/17 at 04:15 Miscellaneous Information 1 [id number] XX Last administered on 06/21/17 04:15; Start 06/21/17 at 04:15 Chlorhexidine Gluconate (Chlorhexidine 2% Cloth) Taper DAILY@04 TOP Last administered on 06/26/17 03:23; Start 06/22/17 at 04:00; Stop 06/18/18 at 03:59 Chlorhexidine Gluconate (Chlorhexidine 2% Cloth) 3 pack UNSCH PRN TOP HYGIENIC CARE; Start 06/21/17 at 04:15 Senna/Docusate Sodium (Yanet-Colace) 1 tab BID PO Last administered on 06/26/17 21:52; Start 06/21/17 at 09:00 Magnesium Hydroxide (Milk Of Magnesia Liq) 30 ml Q12H PRN PO MILD - MODERATE CONSTIPATION; Start 06/21/17 at 04:15 Sennosides (Senokot) 17.2 mg Q12H PRN PO MODERATE - SEVERE CONSTIPATION Last administered on 06/23/17 04:22; Start 06/21/17 at 04:15 Bisacodyl (Dulcolax Supp) 10 mg DAILY PRN RECTAL SEVERE CONSITIPATION; Start at 04:15 Lactulose 30 ml 30 ml DAILY PRN PO SEVERE CONSITIPATION Last administered on 08:29; Start 06/21/17 at 04:15 Labetalol HCl/ Sodium Chloride (Trandate Inj/NS Inj) 250 ml @ 0 mls/hr TITRATE IV Last administered on 06/21/17 13:27; Start 06/21/17 at 04:15; Stop 06/23/17 at 11:47; Status DC Metoprolol Tartrate (Lopressor) 50 mg Q8H PO Last administered on 06/22/17 08: 15; Start 06/21/17 at 09:00; Stop 06/22/17 at 15:57; Status DC Amlodipine Besylate (Norvasc) 10 mg DAILY PO Last administered on 06/26/17 08: 51; Start 06/21/17 at 09:00 Morphine Sulfate (Morphine Inj) 4 mg Q2H PRN IV PAIN SCALE 6 TO 10 Last administered on 06/27/17 06:05; Start 06/21/17 at 08:15 Midazolam HCl (Versed Inj) 10 mg ONCE ONCE IM ; Start 06/21/17 at 08:00; Stop at 08:51; Status DC Clonidine (Catapres) 0.1 mg Q6H PRN PO SBP > 140 Last administered on 06/27/17 02:27; Start 06/21/17 at 15:30 Gadodiamide (Omniscan Pf Inj) 16 ml STK-MED ONCE IV Last administered on 09:25; Start 06/22/17 at 09:25; Stop 06/22/17 at 09:26; Status DC Hydralazine HCl (Apresoline Inj) 10 mg Q30M PRN IV PUSH sbp > 140 Last administered on 06/26/17 17:18; Start 06/22/17 at 16:00; Stop 06/27/17 at 04:06; Status DC Metoprolol Tartrate (Lopressor) 50 mg Q6H PO Last administered on 06/23/17 04: 14; Start 06/22/17 at 16:00; Stop 06/23/17 at 08:51; Status DC Hydralazine HCl (Apresoline) 25 mg Q8HR PO Last administered on 06/24/17 04:09 ; Start 06/22/17 at 16:00; Stop 06/24/17 at 11:52; Status DC Metoprolol Tartrate (Lopressor) 100 mg Q12HR PO Last administered on 06/26/17 21:52; Start 06/23/17 at 10:00 Hydralazine HCl (Apresoline) 50 mg Q8HR PO Last administered on 06/27/17 06:15 ; Start 06/24/17 at 14:00 Iohexol 100 ml 100 ml STK-MED ONCE IV Last administered on 06/25/17 08:26; Start 06/25/17 at 08:26; Stop 06/25/17 at 08:27; Status DC Sodium Chloride 1,000 ml @ 0 mls/hr Q0M IV ; Start 06/25/17 at 11:39 Cefazolin Sodium/ Dextrose (Ancef 2 Gm Premix) 50 ml @ 100 mls/hr STATIONS SUPERINTENDENT IV Last administered on 06/26/17 16:10; Start 06/25/17 at 11:45; Stop 06/29/17 at 11 :44 Midazolam HCl (Versed Inj) 2 mg STK-MED ONCE .ROUTE Last administered on 16:02; Start 06/26/17 at 16:02; Stop 06/26/17 at 16:03; Status DC Fentanyl Citrate 250 mcg 250 mcg STK-MED ONCE .ROUTE Last administered on 16:02; Start 06/26/17 at 16:02; Stop 06/26/17 at 16:03; Status DC Cefazolin Sodium/ Dextrose (Ancef 2 Gm Premix) 50 ml @ As Directed STK-MED ONCE .ROUTE ; Start 06/26/17 at 16:09; Stop 06/26/17 at 16:10; Status DC Heparin Sodium (Porcine) (Heparin Inj) 20,000 units STK-MED ONCE .ROUTE ; Start 06/27/17 at 06:43; Stop 06/27/17 at 06:44; Status DC Vancomycin HCl 1000 mg 1,000 mg STK-MED ONCE .ROUTE ; Start 06/27/17 at 06:43; Stop 06/27/17 at 06:44; Status DC Cefazolin Sodium/ Dextrose (Ancef 2 Gm Premix) 50 ml @ As Directed STK-MED ONCE .ROUTE ; Start 06/27/17 at 06:43; Stop 06/27/17 at 06:44; Status DC Thrombin (Thrombin Top Waterflow) 20,000 units STK-MED ONCE .ROUTE ; Start 06/27/17 at 06:44; Stop 06/27/17 at 06:45; Status DC Protamine Sulfate (Protamine Sulfate Inj) 50 mg STK-MED ONCE .ROUTE ; Start 06/27 at 06:44; Stop 06/27/17 at 06:45; Status DC Dexmedetomidine HCl (Precedex Inj) 200 mcg STK-MED ONCE .ROUTE ; Start 06/27/17 at 07:00; Stop 06/27/17 at 07:01; Status DC Heparin Sodium (Porcine) (Heparin Inj) 30,000 units STK-MED ONCE .ROUTE ; Start 06/27/17 at 07:22; Stop 06/27/17 at 07:23; Status DC A/P Assessment and Plan A/P Type B aortic dissection - extends to abdominal aorta bifurcation - plan for LEFT carotid-subclavian bypass today. - BP control. -vascular surgery following. Hypertension- not optimally controlled. - continue lopressor, amlodipine and hydralazine. -will increase hydralazine -continue to monitor and adjust the regimen as needed. Acute kidney injury-fairly stable. - Unknown baseline creatinine - IV hydration - Strict I's and O's - Monitor creatinine and electrolytes replacement per ICU protocol DVT GI prophylaxis - SCDs - Pepcid - Pharmacological DVT prophylaxis per CT surgeon Sheba Kilgore MD Jun 27, 2017 07:30
[2017-06-27] MEDS ORDERED: ASPIRIN EC 325 MG TABEC PO ONE (08:00)
[2017-06-27] MEDS ORDERED: methylPREDNISolone SOD SUCC 125 MG/2 ML VIAL ONE (08:11)
--- NOTE | 2017-06-27 08:17 | RADRPT ---
EXAM DATE/TIME: 06/26/2017 16:07 [facility] COMPARISON: No previous studies available for comparison. INDICATIONS : Patient is in need of placement of a lumbar drain due to paresthesia and difficult gait. MEDICAL HISTORY : History of aortic dissection, HTN. SURGIAL HISTORY : N/A ENCOUNTER: Initial ACUITY: 4 - 6 days PAIN SCORE: 0/10 LUMBAR PUNCTURE TIME: 1624 hours FLUORO TIME: 3.5 minutes IMAGE SERIES: 1 30 minutes LEVEL: Tip of lumbar drain was placed at T7 MEDICATION(S): 1.) 1.5 mg midazolam (Versed) IV 2.) 150 mcg fentanyl (Sublimaze) IV DEVICE(S): 1.) 5 Cambodian lumbar drain catheter PROCEDURE : 1. Fluoroscopically guided lumbar drain placement. 2. Conscious sedation with continuous EKG and oximetry monitoring. The risks, benefits and alternatives to the procedure were explained and verbal and written consent w as obtained. The site was prepped in sterile fashion. Full sterile technique was used, including ca p, mask, sterile gloves and gown and a large sterile sheet. Hand hygiene and 2% chlorhexidine and/or betadine/alcohol prep was utilized per protocol for cutaneous antisepsis. The skin and subcutaneous tissues were infiltrated with local anesthetic solution. With fluoroscopic guidance the lumbar thecal sac was punctured with a 14 gauge Touhy needle and a lum bar drain was placed with its tip at the level as described above and the catheter was sutured in vijay ce. CSF was identified returning from the catheter at the termination of the procedure. Conscious sedation was performed with the prescribed dosages and duration as above in the presence of an independent trained radiology nurse to assist in the monitoring of the patient. EKG and oximetry remained stable throughout the procedure. The patient tolerated the procedure well and there were n o complications. The patient was sent to post anesthesia recovery in stable condition. CONCLUSION: Uncomplicated lumbar drain placement as above. Damian Taylor MD on June 27, 2017 at 8:15 Board Certified Radiologist. This report was verified electronically.
[2017-06-27] MEDS ORDERED: IOHEXOL 300 MG/ML 50 ML BTL (for RAD DIAG) OTHER ONE (08:38)
[2017-06-27] MEDS: SODIUM CHLORIDE 0.9% FLUSH 10 ML FLUSH SCH ×2 (09:00→22:29)
[2017-06-27] MEDS: DOCUSATE SODIUM 50 MG/SENNA 8.6 MG TAB PO SCH ×2 (09:00→21:00)
[2017-06-27] MEDS: FAMOTIDINE 20 MG TAB PO SCH ×2 (09:00→22:28)
[2017-06-27] MEDS: DOCUSATE SODIUM 100 MG CAP PO SCH ×2 (09:00→22:28)
[2017-06-27] MEDS: ATORVASTATIN 40 MG TAB PO SCH (09:00)
[2017-06-27] MEDS: PANTOPRAZOLE SOD 20 MG DELAYED RELEASE TAB PO SCH (09:00)
[2017-06-27] MEDS: METOPROLOL TARTRATE 50 MG TAB PO SCH ×2 (09:00→19:08)
[2017-06-27] MEDS ORDERED: DOCUSATE SODIUM 100 MG CAP PO SCH (09:00)
[2017-06-27] MEDS ORDERED: HEPARIN SODIUM - SQ 10,000 UNITS/ML VIAL SQ SCH (09:00)
[2017-06-27] MEDS ORDERED: fentaNYL CITRATE 250 MCG/5 ML AMP ONE (10:01)
[2017-06-27] MEDS ORDERED: BUPIVACAINE HCL PF 0.5% 30 ML VIAL INFIL ONE (11:10)
--- NOTE | 2017-06-27 11:15 | HHI.PR ---
Immediate Post Op Note Procedure Date: Jun 27, 2017 Pre Op Diagnosis: acute type B aortic dissection with aneurysmal degeneration Post Op Diagnosis: acute type B aortic dissection with aneurysmal degeneration Surgeon: Gregorio Dixon Single End Sewer(s): Marianne Eddy Procedure: 1. L C-SC bypass with 8mm Dacron 2. TEVAR involving L SCA 3. IVUS of aorta and iliac artery 4. L QUALITY RN Perclose 5. R QUALITY RN Angioseal 6. L SCA embolization Findings: successful exclusion of FL; minimal retrograde FL perfusion Additional Information: + Doppler signals B LE Complications: none apparent Specimen(s) removed: none Estimated blood loss: 150mL Anesthesia: General Drains: Other (spinal drain (placed pre-operatively)) Fluids: 2400mL X'oid; 280 mL UOP IVF Patient to: Other ([facility]) Patient Condition: Good Implant/Devices: SEE IMPLANT LOG (if applicable) Date/Time of Procedure: SEE SURGICAL CARE RECORD Gregorio Dixon MD Jun 27, 2017 11:15
--- NOTE | 2017-06-27 12:40 | PD.CONS ---
HPI Service Critical Care Medicine Consult Requested By Dr. Dixon Reason for Consult S/P TEVAR Primary Care Physician Unknown History of Present Illness History of Present Illness 56 year old male presented with complaints of right upper extremity weakness and bilateral lower extremity weakness on 06/21/17. The patient reported a history of lying in bed awake when he had onset of chest pressure and back pain. He reports that the pain felt like an expanding sensation in his chest and back. Then he got up and noticed having tingling in bilateral upper extremities with weakness in the right upper extremity and bilateral lower extremities. Upon arrival to ED, the patient was noted to have paresis of the right upper extremity and numbness to bilateral lower extremities with paralysis of bilateral lower extremities. In the ED a CT of aorta diagnosed type B dissection, with aneurysm degeneration and extension into the abdominal aorta. Today the patient underwent TEVAR left subclavian approach. CCM was consulted. ROS - General Review of Systems Constitutional: COMPLAINS OF: Diaphoretic episodes, Dizziness, DENIES: Fatigue , Fever, Weight gain, Weight loss, Chills, Change in appetite, Night Sweats Endocrine: DENIES: Heat/cold intolerance, Polydipsia, Polyuria, Polyphagia Eyes: DENIES: Blurred vision, Diplopia, Eye inflammation, Eye pain, Vision loss , Photosensitivity, Double Vision Ears, nose, mouth, throat: DENIES: Tinnitus, Hearing loss, Vertigo, Nasal discharge, Oral lesions, Throat pain, Hoarseness, Ear Pain, Running Nose, Epistaxis, Sinus Pain, Toothache, Odynophagia Respiratory: DENIES: Apneas, Cough, Snoring, Wheezing, Hemoptysis, Sputum production, Shortness of breath Cardiovascular: COMPLAINS OF: Chest pain, DENIES: Palpitations, Syncope, Dyspnea on Exertion, PND, Lower Extremity Edema, Orthopnea, Claudication Gastrointestinal: DENIES: Abdominal pain, Black stools, Bloody stools, Constipation, Diarrhea, Nausea, Vomiting, Difficulty Swallowing, Anorexia Genitourinary: DENIES: Sexual dysfunction, Urinary frequency, Urinary incontinence, Urgency, Hematuria, Dysuria, Nocturia, Penile Discharge, Testicular Pain, Testicular Swelling Musculoskeletal: DENIES: Joint pain, Muscle aches, Stiffness, Joint Swelling, Back pain, Neck pain Integumentary: DENIES: Abnormal pigmentation, Nail changes, Pruritus, Rash Hematologic/lymphatic: DENIES: Bruising, Lymphadenopathy Immunologic/allergic: DENIES: Eczema, Urticaria Neurologic: COMPLAINS OF: Abnormal gait, Localized weakness, Paresthesias, Poor Balance, DENIES: Headache, Seizures, Speech Problems, Tremor Psychiatric: DENIES: Anxiety, Confusion, Mood changes, Depression, Hallucinations, Agitation, Suicidal Ideation, Homicidal Ideation, Delusions PFSH Past Family Social History Allergies: Coded Allergies: No Known Allergies (Unverified , 06/21/17) Past Medical History Hypertension Past Surgical History None Past Family Social History Allergies: Coded Allergies: No Known Allergies (Unverified , 06/21/17) Physical Exam Vital Signs Vital Signs Date Time Temp Pulse Resp B/P Pulse Ox O2 Delivery O2 Flow Rate FiO2 06/27/17 04:00 97.5 76 20 166/92 96 06/27/17 00:00 97.8 69 20 146/80 96 06/26/17 20:00 98.1 88 20 176/96 95 06/26/17 18:45 96.7 96 18 194/100 95 06/26/17 18:00 92 22 179/88 94 06/26/17 17:35 92 22 166/104 94 06/26/17 17:05 93 22 179/97 95 06/26/17 16:50 96 22 186/103 95 06/26/17 16:00 97.2 83 20 184/94 95 Physical Exam GENERAL: Calm. SKIN: Warm and dry. HEAD: Normocephalic. NECK: Supple, trachea midline. CARDIOVASCULAR: Telemetry 86, reg rate and rhythm without murmurs, gallops, or rubs. No JVD. Left subclavian surgical site dermoid upon no no edema, erythema or drainage RESPIRATORY: Breath sounds equal bilaterally. No accessory muscle use. Clear. No wheezes or crackles. Nasal cannula 4 L/m GASTROINTESTINAL: Abdomen soft, non-tender, nondistended. BS active. MUSCULOSKELETAL: No cyanosis, or edema. Well perfused legs. Palpable pulses bilateral upper and lower extremities. Capillary refill brisk NEURO EXAM: Lumbar drain in situ,clear CSF no heme noted. Movement of extremities 4 , no focal deficits Laboratory Laboratory Tests Test 06/26/17 06/27/17 08:57 08:15 White Blood Count 10.8 TH/MM3 Red Blood Count 5.01 MIL/MM3 Hemoglobin 16.5 GM/DL Hematocrit 47.1 % Mean Corpuscular Volume 94.1 FL Mean Corpuscular Hemoglobin 32.9 PG Mean Corpuscular Hemoglobin 35.0 % Concent Red Cell Distribution Width 12.8 % Platelet Count 251 TH/MM3 Mean Platelet Volume 9.5 FL Neutrophils (%) (Auto) 73.7 % Lymphocytes (%) (Auto) 12.8 % Monocytes (%) (Auto) 11.9 % Eosinophils (%) (Auto) 1.2 % Basophils (%) (Auto) 0.4 % Neutrophils # (Auto) 8.0 TH/MM3 Lymphocytes # (Auto) 1.4 TH/MM3 Monocytes # (Auto) 1.3 TH/MM3 Eosinophils # (Auto) 0.1 TH/MM3 Basophils # (Auto) 0.0 TH/MM3 CBC Comment DIFF FINAL Differential Comment Prothrombin Time 12.0 SEC Prothromb Time International 1.1 RATIO Ratio Activated Partial 29.9 SEC Thromboplast Time Sodium Level 139 MEQ/L Potassium Level 3.4 MEQ/L Chloride Level 102 MEQ/L Carbon Dioxide Level 26.0 MEQ/L Anion Gap 11 MEQ/L Blood Urea Nitrogen 26 MG/DL Creatinine 1.38 MG/DL Estimat Glomerular Filtration 53 ML/MIN Rate Random Glucose 109 MG/DL Calcium Level 9.4 MG/DL Blood Type O POSITIVE Antibody Screen NEGATIVE Crossmatch Leukocyte-Reduced Red Blood Cells Blood Bank Comment Laboratory Tests Test 06/27/17 08:15 Blood Type O POSITIVE Antibody Screen NEGATIVE Crossmatch Leukocyte-Reduced Red Blood Cells Blood Bank Comment Result Diagram: 06/26/17 0857 06/26/17 0857 Imaging Last Impressions Lumbar Puncture Fluoroscopy 06/25/17 0000 Signed Impressions: Service Date/Time: Monday, June 26, 2017 16:07 - CONCLUSION: Uncomplicated lumbar drain placement as above. Damian Taylor MD Aorta CTA 06/25/17 0000 Signed Impressions: Service Date/Time: Sunday, June 25, 2017 08:10 - CONCLUSION: 1. There is a type B aortic dissection that begins just distal to the origin of the left subclavian artery and extends inferiorly into the abdominal aorta and into the proximal right common iliac artery. It questionably also extends into the left renal artery. There is normal perfusion of all of the solid organs in the abdomen and pelvis and major aortic branches. 2. However, since the examination from 4 days ago the descending thoracic aorta has increased in size. For example at a similar level it currently measures 4.1 x 3.9 cm compared to 3.9 x 3.7 cm previously. Additionally, the aortic wall appears irregular at the distal arch and there is mild stranding around the aortic arch and descending aorta that was not present previously. There is a new small simple appearing left pleural effusion. 3. 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 The above changes concerning the aortic dissection were discussed with Dr. Dixon. Sanket Warner MD Thoracic Spine MRI 06/22/17 0000 Signed Impressions: Service Date/Time: June 08:48 - CONCLUSION: 1. Mild to moderate degenerative disc disease. No acute findings. No cord impingement or direct nerve root compression. Yamil Marks MD Cervical Spine MRI 06/22/17 Signed Impressions: Service Date/Time: June 08:48 - CONCLUSION: 1. Moderate degenerative disc disease with slight reversal of normal cervical lordosis. 2. Osteophytes and mild disc protrusions at C4-5-6-7 resulting in mild AP canal stenosis and mild flattening of the anterior surface of the cord. No cord signal abnormality. Yamil Marks MD Chest X-Ray 06/21/17 0218 Signed Impressions: Service Date/Time: Wednesday, June 21, 2017 02:33 - CONCLUSION: 1. Subtle visualization of the known thoracic aortic dissection. 2. The lungs are clear. Syd Segura MD Head CT 06/21/17 Signed Impressions: Service Date/Time: Wednesday, June 21, 2017 02:18 - CONCLUSION: Unremarkable exam. These findings are called to Dr. Murillo at 1431 hrs. Syd Segura MD Assessment and Plan Assessment and Plan Type B aortic dissection - extends to abdominal aorta bifurcation - 06/27 S/P TEVAR- left subclavian approach -Narcan 1 mcg/kg/hr-management per surgery - Maintain systolic blood pressure [id number] - Avoid hypotension -Lumbar drain in situ continue to monitor Hypertension - Resume scheduled dosing of hydralazine 70 mg PO Postoperative pain -Ofirmev 1 g every 6 hours when necessary Acute kidney injury - Continue hydration LR at 84 cc/hr -Maintain Adkins catheter - Strict I's and O's - Monitor creatinine and electrolytes replacement per ICU protocol Heme -F/U postop labs -Monitor CBC GI -Maintain NPO status -Glucose monitoring per ICU protocol DVT GI prophylaxis - SCDs - Pepcid - Pharmacological DVT prophylaxis per surgeon Dispo: CCT 30 mins Code Status Full Discussed Condition With HORTICULTURE SUPERVISOR at bedside Astrid Castellano MD Jun 27, 2017 12:40
[2017-06-27 12:47] LABS: HEMATOCRIT 41.5 % (39.0-51.0); MEAN CELL VOLUME 95.7 FL (80.0-100.0); MEAN CORPUSCULAR HEMOGLOBIN 32.3 PG (27.0-34.0); MEAN CORPUSCULAR HGB CONC 33.7 % (32.0-36.0); PLATELET COUNT 207 TH/MM3 (150-450); RED BLOOD COUNT 4.34 MIL/MM3 (4.50-5.90); RED CELL DISTRIBUTION WIDTH 12.3 % (11.6-17.2); REVIEW FLAG FINAL; WHITE BLOOD COUNT 13.9 TH/MM3 (4.0-11.0)
[2017-06-27] MEDS ORDERED: NALOXONE 4 MG/D5W 246 ML ADMIX IV SCH ×4 (13:00→21:45)
[2017-06-27 13:08] LABS: BICARBONATE 24.7 MEQ/L (21.0-32.0); POTASSIUM 3.8 MEQ/L (3.5-5.1)
[2017-06-27] MEDS ORDERED: POTASSIUM PHOSPHATE INJ 30 MMOL in SODIUM CHLOR 0.9% 250 ML INJ 250 ML IV PRN (13:15)
[2017-06-27] MEDS ORDERED: SODIUM PHOSPHATE INJ 30 MMOL in SODIUM CHLOR 0.9% 250 ML INJ 240 ML IV PRN (13:15)
[2017-06-27] MEDS ORDERED: POTASSIUM CHLORIDE 25 MEQ EFFERVESCENT TAB PO PRN (13:15)
[2017-06-27] MEDS ORDERED: MAGNESIUM SULFATE INJ 2 GM in SODIUM CHLORIDE 0.9% INJ 96 ML IV PRN (13:15)
[2017-06-27] MEDS ORDERED: DEXTROSE 50% IN WATER 50 ML VIAL(D50) IV PRN (13:15)
[2017-06-27] MEDS ORDERED: POTASSIUM CHLOR 20 MEQ PREMIX 100 ML IV PRN ×2 (13:15)
[2017-06-27] MEDS ORDERED: GLUCAGON 1 MG/ML VIAL OTHER PRN (13:15)
[2017-06-27] MEDS ORDERED: POTASSIUM PHOSPHATE MONOBASIC 500 MG TAB PO/TUBE PRN (13:15)
[2017-06-27] MEDS ORDERED: MAGNESIUM OXIDE 400 MG TAB PO PRN (13:15)
[2017-06-27] MEDS ORDERED: MAGNESIUM SULFATE INJ 4 GM in SODIUM CHLORIDE 0.9% INJ 92 ML IV PRN (13:15)
[2017-06-27] MEDS ORDERED: POTASSIUM CHLOR 40 MEQ PREMIX 100 ML IV PRN ×2 (13:15)
[2017-06-27] MEDS ORDERED: POTASSIUM PHOSPHATE MONOBASIC 500 MG TAB PO PRN (13:15)
[2017-06-27] MEDS: hydrALAZINE HCL 25 MG TAB PO SCH ×2 (14:00→22:00)
[2017-06-27] MEDS: ACETAMINOPHEN 1000 MG/100 ML VIAL IV PRN (15:49)
[2017-06-27] MEDS: INSULIN ASPART SUPPLEMENTAL SCALE SQ SCH ×2 (16:00→21:00)
--- NOTE | 2017-06-27 16:17 | RADRPT ---
EXAM DATE/TIME: 06/27/2017 15:19 [facility] COMPARISON: CHEST SINGLE AP, June 21, 2017, 2:33. INDICATIONS : Fever. MEDICAL HISTORY : Hypertension. TBI. History of aortic dissection SURGICAL HISTORY : Stent. ENCOUNTER: Initial ACUITY: 1 day PAIN SCORE: Non-responsive. LOCATION: Bilateral chest FINDINGS: A single view of the chest demonstrates stent graft placement in the aorta. Mild basal airspace disea se, left greater than right. No pneumothorax. No significant effusions. CONCLUSION: 1. Stent graft placement of the aorta. Mild basal airspace disease. No significant effusion. Yamil Marks MD on June 27, 2017 at 16:14 Board Certified Radiologist. This report was verified electronically.
[2017-06-27] MEDS: ACETAMINOPHEN 325 MG TAB PO PRN (17:35)
[2017-06-27] MEDS: HYDROmorphone HCL PF 1 MG/ML VIAL IV PUSH PRN (22:30)
[2017-06-28] VITALS (12 sets, daily range): BP systolic 139–199; BP diastolic 70–108; PULSE 70–115; RESP 16–22; TEMP 97.4–100.1; O2SAT 90–97
[2017-06-28] MEDS: LACTATED RINGER'S 1000 ML INJ 1,000 ML IV SCH ×3 (00:32→21:14)
[2017-06-28] MEDS: ACETAMINOPHEN 1000 MG/100 ML VIAL IV PRN ×2 (00:33→12:00)
[2017-06-28] MEDS: CHLORHEXIDINE GLUCONATE 2 % 1 PACK (2 CLOTHS) TOP SCH (03:23)
[2017-06-28] MEDS: HYDROmorphone HCL PF 1 MG/ML VIAL IV PUSH PRN ×5 (03:26→21:12)
[2017-06-28] MEDS ORDERED: hydrALAZINE HCL 20 MG/ML VIAL ONE (03:36)
[2017-06-28] MEDS: hydrALAZINE HCL 20 MG/ML VIAL IV PRN (03:38)
[2017-06-28 04:32] LABS: HEMATOCRIT 40.8 % (39.0-51.0); MEAN CORPUSCULAR HGB CONC 33.7 % (32.0-36.0); PLATELET COUNT 205 TH/MM3 (150-450); RED BLOOD COUNT 4.29 MIL/MM3 (4.50-5.90); RED CELL DISTRIBUTION WIDTH 12.4 % (11.6-17.2); REVIEW FLAG FINAL; WHITE BLOOD COUNT 14.5 TH/MM3 (4.0-11.0)
[2017-06-28 04:54] LABS: BICARBONATE 26.2 MEQ/L (21.0-32.0); POTASSIUM 3.7 MEQ/L (3.5-5.1)
[2017-06-28] MEDS ORDERED: DEXMEDETOMIDINE INJ 200 MCG in SODIUM CHLORIDE 0.9% INJ 50 ML IV SCH (05:00)
[2017-06-28] MEDS: LABETALOL HCL 100 MG/20 ML VIAL IV PUSH PRN ×2 (05:08→05:12)
[2017-06-28] MEDS ORDERED: LABETALOL HCL 100 MG/20 ML VIAL IV PUSH ONE (05:30)
[2017-06-28] MEDS: hydrALAZINE HCL 25 MG TAB PO SCH (05:37)
[2017-06-28] MEDS: niCARdipine INJ 25 MG in SODIUM CHLOR 0.9% 250 ML INJ 250 ML IV SCH ×3 (05:40→17:57)
[2017-06-28] MEDS: INSULIN ASPART SUPPLEMENTAL SCALE SQ SCH ×4 (07:00→21:00)
--- NOTE | 2017-06-28 07:11 | PD.VS.PN ---
Subjective POD #: 1 Procedure(s): L C-SC, TEVAR Subjective/Hospital Course Pt with HTN last night and by his admission, a "panic attack". Much better now. no CP/Back pain Neuro intact Objective Vitals/I&O Date Time Temp Pulse Resp B/P Pulse Ox O2 Delivery O2 Flow Rate FiO2 06/28/17 04:00 96 Nasal Cannula 4.00 06/28/17 04:00 86 06/28/17 04:00 98.2 87 16 173/101 96 199/92 06/28/17 00:00 98.1 78 22 166/108 97 199/100 06/28/17 00:00 97 Nasal Cannula 4.00 06/28/17 00:00 78 06/27/17 23:00 20 06/27/17 21:00 97 Nasal Cannula 4.00 06/27/17 21:00 70 06/27/17 20:00 98.3 68 16 152/91 96 168/86 06/27/17 15:22 86 06/27/17 15:17 97.5 86 18 148/97 96 164/86 06/27/17 15:15 96 Nasal Cannula 4.00 06/27/17 12:31 80 06/27/17 12:31 97.5 79 16 132/85 95 165/72 Manual Cuff/Auscultation 06/27/17 12:31 95 Nasal Cannula 4.00 Exam: Alert and conversant No distress Pulses: palpable Incisions: L neck incision c/d/i B groins ok Laboratory Laboratory Tests Test 06/27/17 06/27/17 06/28/17 08:15 11:55 04:10 Blood Type O POSITIVE Antibody Screen NEGATIVE Crossmatch Leukocyte-Reduced Red Blood Cells Blood Bank Comment White Blood Count 13.9 14.5 Red Blood Count 4.34 4.29 Hemoglobin 14.0 13.7 Hematocrit 41.5 40.8 Mean Corpuscular Volume 95.7 95.0 Mean Corpuscular Hemoglobin 32.3 32.0 Mean Corpuscular Hemoglobin 33.7 33.7 Concent Red Cell Distribution Width 12.3 12.4 Platelet Count 207 205 Mean Platelet Volume 8.6 8.6 Sodium Level 140 136 Potassium Level 3.8 3.7 Chloride Level 104 103 Carbon Dioxide Level 24.7 26.2 Anion Gap 11 7 Blood Urea Nitrogen 29 30 Creatinine 1.45 1.38 Estimat Glomerular Filtration 50 53 Rate Random Glucose 131 116 Calcium Level 8.3 8.4 Phosphorus Level 3.8 Assessment and Plan Plan POD#1 s/p L C-SC/TEVAR for acute aneurysmal degeneration of aTBAD 1. Clamp spinal drain at 1000 today; hold sub q heparin in anticipation of removal tomorrow 2. Continue neuro checks 3. BP control - goal SBP 160 for now 4. Cardiac diet Gregorio Dixon MD Jun 28, 2017 07:11
[2017-06-28] MEDS: SODIUM CHLORIDE 0.9% FLUSH 10 ML FLUSH SCH ×2 (08:40→21:00)
[2017-06-28] MEDS: PANTOPRAZOLE SOD 20 MG DELAYED RELEASE TAB PO SCH (08:41)
[2017-06-28] MEDS: DOCUSATE SODIUM 50 MG/SENNA 8.6 MG TAB PO SCH ×2 (08:41→21:13)
[2017-06-28] MEDS: DOCUSATE SODIUM 100 MG CAP PO SCH ×2 (08:41→21:00)
[2017-06-28] MEDS: ATORVASTATIN 40 MG TAB PO SCH (08:41)
[2017-06-28] MEDS: FAMOTIDINE 20 MG TAB PO SCH ×2 (08:41→21:13)
[2017-06-28] MEDS: METOPROLOL TARTRATE 50 MG TAB PO SCH ×2 (08:44→21:13)
--- NOTE | 2017-06-28 09:10 | HHI.CCPN ---
Subjective Remarks/Hospital Course 56 year old male presented with complaints of right upper extremity weakness and bilateral lower extremity weakness on 06/21/17. The patient reported a history of lying in bed awake when he had onset of chest pressure and back pain. He reports that the pain felt like an expanding sensation in his chest and back. Then he got up and noticed having tingling in bilateral upper extremities with weakness in the right upper extremity and bilateral lower extremities. Upon arrival to ED, the patient was noted to have paresis of the right upper extremity and numbness to bilateral lower extremities with paralysis of bilateral lower extremities. In the ED a CT of aorta diagnosed type B dissection, with aneurysm degeneration and extension into the abdominal aorta. Today the patient underwent TEVAR left subclavian approach. [facility] was consulted. Subjective: 06/28: Overnight the patient became extremely hypertensive with a systolic blood pressure in the 200s, at which point in time the patient also became confused. The patient received IV antihypertensive medications, and was placed on Precedex infusion with resolution of symptomatology. The patient currently alert and oriented, normotensive. Objective Vital Signs Date Time Temp Pulse Resp B/P Pulse Ox O2 Delivery O2 Flow Rate FiO2 06/28/17 08:47 92 Nasal Cannula 2.00 06/28/17 07:00 97.8 91 18 149/93 166/70 Intake and Output 06/27/17 06/27/17 06/27/17 07:59 15:59 23:59 Intake Total 1817 ml Output Total 756 ml Balance 1061 ml Result Diagram: 06/28/17 0410 06/28/17 0410 Imaging Last Impressions Lumbar Puncture Fluoroscopy 06/25/17 0000 Signed Impressions: Service Date/Time: Monday, June 26, 2017 16:07 - CONCLUSION: Uncomplicated lumbar drain placement as above. Damian Taylor MD Aorta CTA 06/25/17 0000 Signed Impressions: Service Date/Time: Sunday, June 25, 2017 08:10 - CONCLUSION: 1. There is a type B aortic dissection that begins just distal to the origin of the left subclavian artery and extends inferiorly into the abdominal aorta and into the proximal right common iliac artery. It questionably also extends into the left renal artery. There is normal perfusion of all of the solid organs in the abdomen and pelvis and major aortic branches. 2. However, since the examination from 4 days ago the descending thoracic aorta has increased in size. For example at a similar level it currently measures 4.1 x 3.9 cm compared to 3.9 x 3.7 cm previously. Additionally, the aortic wall appears irregular at the distal arch and there is mild stranding around the aortic arch and descending aorta that was not present previously. There is a new small simple appearing left pleural effusion. 3. 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 The above changes concerning the aortic dissection were discussed with Dr. Dixon. Sanket Warner MD Thoracic Spine MRI 06/22/17 Signed Impressions: Service Date/Time: June 08:48 - CONCLUSION: 1. Mild to moderate degenerative disc disease. No acute findings. No cord impingement or direct nerve root compression. Yamil Marks MD Cervical Spine MRI 06/22/17 Signed Impressions: Service Date/Time: June 08:48 - CONCLUSION: 1. Moderate degenerative disc disease with slight reversal of normal cervical lordosis. 2. Osteophytes and mild disc protrusions at C4-5-6-7 resulting in mild AP canal stenosis and mild flattening of the anterior surface of the cord. No cord signal abnormality. Yaiml Marks MD Chest X-Ray 06/21/17 0218 Signed Impressions: Service Date/Time: Wednesday, June 21, 2017 02:33 - CONCLUSION: 1. Subtle visualization of the known thoracic aortic dissection. 2. The lungs are clear. Syd Segura MD Head CT 06/21/17 Signed Impressions: Service Date/Time: Wednesday, June 21, 2017 02:18 - CONCLUSION: Unremarkable exam. These findings are called to Dr. Murillo at 1431 hrs. Syd Segura MD Objective Remarks GENERAL: Well-developed well-nourished male alert and oriented appropriately responsive. SKIN: Warm and dry. HEAD: Normocephalic. NECK: Supple, trachea midline. CARDIOVASCULAR: Telemetry 89 reg rate and rhythm without murmurs, gallops, or rubs. No JVD. Left subclavian surgical site dermabond no edema, erythema or drainage RESPIRATORY: Breath sounds equal bilaterally. No accessory muscle use. Clear. No wheezes or crackles. Nasal cannula 4 L/m GASTROINTESTINAL: Abdomen soft, non-tender, nondistended. BS active. MUSCULOSKELETAL: No cyanosis, or edema. Well perfused legs. Palpable pulses bilateral upper and lower extremities. Capillary refill brisk NEURO EXAM: Lumbar drain in situ,clear CSF no heme noted. Movement of extremities 4 , no focal deficits A/P Assessment and Plan Type B aortic dissection - extends to abdominal aorta bifurcation - 06/27 S/P TEVAR- left subclavian approach -Narcan 1 mcg/kg/hr-management per surgery - Maintain systolic blood pressure [id number] - Avoid hypotension -Lumbar drain in situ - Clamp at 1000 Hypertension - Maintain SBP 140-160's Postoperative pain -Ofirmev 1 g every 6 hours when necessary Acute kidney injury - Continue hydration LR at 84 cc/hr -Maintain Adkins catheter - Strict I's and O's - Monitor creatinine and electrolytes replacement per ICU protocol Heme -Reactive leukocytosis 2/2 surgery WBC 13.0 -Monitor CBC GI -Maintain NPO status -Glucose monitoring per ICU protocol DVT GI prophylaxis - SCDs - Pepcid - Pharmacological DVT prophylaxis per surgeon- heparin will be held tonight and early a.m. in anticipation for removal of lumbar drain Dispo: Level 3 Physician Astrid Franco MD Jun 28, 2017 09:09
[2017-06-28] MEDS ORDERED: HEPARIN SODIUM - SQ 10,000 UNITS/ML VIAL SQ SCH (10:00)
[2017-06-28] MEDS ORDERED: DILTIAZEM HCL 25 MG/5 ML VIAL IV ONE (14:45)
[2017-06-28] MEDS ORDERED: DILTIAZEM HCL 25 MG/5 ML VIAL ONE (14:52)
[2017-06-29] VITALS (8 sets, daily range): BP systolic 151–162; BP diastolic 86–95; PULSE 86–103; RESP 18–28; TEMP 98.9–99.5; O2SAT 90–98
--- NOTE | 2017-06-29 01:02 | RADRPT ---
EXAM DATE/TIME: 06/29/2017 00:32 [facility] COMPARISON: CHEST SINGLE AP, June 27, 2017, 15:19. INDICATIONS : Difficulty breathing MEDICAL HISTORY : Hypertension. TBI. History of aortic dissection SURGICAL HISTORY : Stent. ENCOUNTER: Initial ACUITY: 1 day PAIN SCORE: 0/10 LOCATION: Bilateral chest FINDINGS: Cardiomegaly, endovascular stent graft and metallic coils are noted overlying the mediastinum. The paula ngs are clear. Osseous structures are intact. CONCLUSION: No acute disease. Hernandez Ramires MD on June 29, 2017 at 1:00 Board Certified Radiologist. This report was verified electronically.
[2017-06-29] MEDS: hydrALAZINE HCL 20 MG/ML VIAL IV PRN (02:41)
[2017-06-29] MEDS: LABETALOL HCL 100 MG/20 ML VIAL IV PUSH PRN ×3 (03:41→17:52)
[2017-06-29] MEDS: CHLORHEXIDINE GLUCONATE 2 % 1 PACK (2 CLOTHS) TOP SCH (04:00)
[2017-06-29 05:06] LABS: INTERNATIONAL NORMALIZED RATIO 1.2 RATIO; PROTHROMBIN TIME - PATIENT 12.9 SEC (9.8-11.6)
[2017-06-29] MEDS: HYDROmorphone HCL PF 1 MG/ML VIAL IV PUSH PRN (05:51)
[2017-06-29] MEDS: INSULIN ASPART SUPPLEMENTAL SCALE SQ SCH ×4 (06:14→21:00)
[2017-06-29] MEDS: LACTATED RINGER'S 1000 ML INJ 1,000 ML IV SCH (07:33)
--- NOTE | 2017-06-29 08:12 | HHI.CCPN ---
Subjective Remarks/Hospital Course 56 year old male presented with complaints of right upper extremity weakness and bilateral lower extremity weakness on 06/21/17. The patient reported a history of lying in bed awake when he had onset of chest pressure and back pain. He reports that the pain felt like an expanding sensation in his chest and back. Then he got up and noticed having tingling in bilateral upper extremities with weakness in the right upper extremity and bilateral lower extremities. Upon arrival to ED, the patient was noted to have paresis of the right upper extremity and numbness to bilateral lower extremities with paralysis of bilateral lower extremities. In the ED a CT of aorta diagnosed type B dissection, with aneurysm degeneration and extension into the abdominal aorta. Today the patient underwent TEVAR left subclavian approach. [facility] was consulted. Subjective: 06/28: Overnight the patient became extremely hypertensive with a systolic blood pressure in the 200s, at which point in time the patient also became confused. The patient received IV antihypertensive medications, and was placed on Precedex infusion with resolution of symptomatology. The patient currently alert and oriented, normotensive. Subjective 06/29: MAXIMUM TEMPERATURE 100.1. Currently 99.3. +2 L overnight. Remains on Cardene drip at 5 mg an hour for hypertension. No longer agitated/confused. No bowel movement. Objective Vital Signs Date Time Temp Pulse Resp B/P Pulse Ox O2 Delivery O2 Flow Rate FiO2 06/29/17 07:46 94 Nasal Cannula 6.00 06/29/17 07:00 99.3 103 18 154/95 Intake and Output 06/28/17 06/28/17 06/29/17 08:00 16:00 00:00 Intake Total 2141 ml 2465 ml Output Total 1186 ml 1675 ml Balance 955 ml 790 ml Result Diagram: 06/28/17 0410 06/28/17 0410 Imaging Last Impressions Chest X-Ray 06/29/17 0007 Signed Impressions: Service Date/Time: June 00:32 - CONCLUSION: No acute disease. Hernandez Ramires MD Lumbar Puncture Fluoroscopy 06/25/17 0000 Signed Impressions: Service Date/Time: Monday, June 26, 2017 16:07 - CONCLUSION: Uncomplicated lumbar drain placement as above. Damian Taylor MD Aorta CTA 06/25/17 0000 Signed Impressions: Service Date/Time: Sunday, June 25, 2017 08:10 - CONCLUSION: 1. There is a type B aortic dissection that begins just distal to the origin of the left subclavian artery and extends inferiorly into the abdominal aorta and into the proximal right common iliac artery. It questionably also extends into the left renal artery. There is normal perfusion of all of the solid organs in the abdomen and pelvis and major aortic branches. 2. However, since the examination from 4 days ago the descending thoracic aorta has increased in size. For example at a similar level it currently measures 4.1 x 3.9 cm compared to 3.9 x 3.7 cm previously. Additionally, the aortic wall appears irregular at the distal arch and there is mild stranding around the aortic arch and descending aorta that was not present previously. There is a new small simple appearing left pleural effusion. 3. 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 The above changes concerning the aortic dissection were discussed with Dr. Dixon. Sanket Warner MD Thoracic Spine MRI 06/22/17 Signed Impressions: Service Date/Time: June 08:48 - CONCLUSION: 1. Mild to moderate degenerative disc disease. No acute findings. No cord impingement or direct nerve root compression. Yamil Marks MD Cervical Spine MRI 06/22/17 0000 Signed Impressions: Service Date/Time: June 08:48 - CONCLUSION: 1. Moderate degenerative disc disease with slight reversal of normal cervical lordosis. 2. Osteophytes and mild disc protrusions at C4-5-6-7 resulting in mild AP canal stenosis and mild flattening of the anterior surface of the cord. No cord signal abnormality. Yamil Marks MD Head CT 06/21/17 0000 Signed Impressions: Service Date/Time: Wednesday, June 21, 2017 02:18 - CONCLUSION: Unremarkable exam. These findings are called to Dr. Murillo at 1431 hrs. Syd Segura MD Objective Remarks GENERAL: 48-year-old male, resting in bed in no acute distress on nasal cannula SKIN: Warm and dry. Perfused with no rash HEAD: Normocephalic. NECK: Supple, trachea midline. No JVD CARDIOVASCULAR: RRR. S1, S2. No S4 without murmur Left subclavian surgical site dermabond no edema, erythema or drainage RESPIRATORY: Few crackles appreciated bilateral lower lobes. Surgical excursion active bowel sounds GASTROINTESTINAL: Abdomen soft, non-tender, nondistended. BS active. MUSCULOSKELETAL: No lifting peripheral edema. Well perfused legs. Palpable pulses bilateral upper and lower extremities. Capillary refill brisk NEURO EXAM: Lumbar drain in situ,clear CSF no heme noted. Movement of extremities 4 , no focal deficits A/P Assessment and Plan Neuro/Psych: Acute delirium - resolved Currently on acetaminophen 650 mg every 6 hours for fever/pain 1-5 Hydromorphone 1 mg every 4 hours when necessary breakthrough pain Cardiovascular Type B aortic dissection - extends to abdominal aorta bifurcation - 06/27 S/P TEVAR- left subclavian approach Hypertension -Narcan 1 mcg/kg/hr-management per surgery - Maintain systolic blood pressure [id number]'s Currently on Clevidipine gtt/schedule metoprolol 100 every 12, Norvasc 10 mg daily for hypertension. Added clonidine 0 point milligram by mouth twice a day Atorvastatin 40 mg by mouth daily for dyslipidemia -Lumbar drain in situ - Clamp at 1000 - On Narcan drip at 1 leta per kilogram per minute for spinal cord ischemia prevention. Per neurosurgery discontinue at 10 AM today Respiratory Acute respiratory insufficiency - Possible early volume overload Currently on nasal cannula to maintain saturations greater than equal to 92%. Currently on 6 L Incentive spirometry while awake Might need gentle diuresis today. IV fluids discontinued Chest x-ray 8 AM revealed no acute cardio blurry findings GI Constipation Currently on heart healthy diet Pantoprazole for GI prophylaxis Yanet-Colace for bowel regimen. Added MiraLAX and lactulose 1. Renal/: Acute kidney injury -Maintain Adkins catheter - Strict I's and O's - Monitor creatinine and electrolytes replacement per ICU protocol Heme Leukocytosis Likely reactive secondary surgery. -Monitor CBC ID Postoperative antibiotics with cefazolin was 4 days stop date 06/29 per vascular surgery Monitor for infection FEN: Replace electrolytes as clinically indicated DVT GI prophylaxis - SCDs -Pantoprazole - Pharmacological DVT prophylaxis per surgeon- heparin will be held 8 and early a.m. 06/29 in anticipation for removal of lumbar drain Dispo: Level 2 Edmundo Ortiz MD Jun 29, 2017 08:12
[2017-06-29] MEDS ORDERED: LACTULOSE SYRUP 20 GM/30 ML CUP PO ONE (08:15)
[2017-06-29] MEDS: SODIUM CHLORIDE 0.9% FLUSH 10 ML FLUSH SCH ×2 (08:17→21:00)
[2017-06-29] MEDS: DOCUSATE SODIUM 50 MG/SENNA 8.6 MG TAB PO SCH ×2 (08:34→21:37)
[2017-06-29] MEDS: PANTOPRAZOLE SOD 20 MG DELAYED RELEASE TAB PO SCH (08:34)
[2017-06-29] MEDS: METOPROLOL TARTRATE 50 MG TAB PO SCH ×2 (08:34→21:37)
[2017-06-29] MEDS: ATORVASTATIN 40 MG TAB PO SCH (08:34)
--- NOTE | 2017-06-29 08:51 | PD.VS.PN ---
Subjective POD #: 2 Procedure(s): L C-SC, TEVAR Subjective/Hospital Course Neuro intact Pt in bed resting alert Nurse reported patient was anxious last night found sitting at the edge of the bed Pt removed A line Objective Vitals/I&O Date Time Temp Pulse Resp B/P Pulse Ox O2 Delivery O2 Flow Rate FiO2 06/29/17 07:46 94 Nasal Cannula 6.00 06/29/17 07:00 92 Nasal Cannula 6.00 06/29/17 07:00 99.3 103 18 154/95 92 06/29/17 07:00 101 06/29/17 03:00 98 Simple Mask 8.00 06/29/17 03:00 95 06/29/17 03:00 98.9 96 22 151/86 98 Arterial Line 06/28/17 23:44 96 Simple Mask 10.00 06/28/17 23:00 99.9 78 22 149/82 96 147/77 06/28/17 23:00 96 Simple Mask 10.00 06/28/17 23:00 70 06/28/17 22:00 90 Simple Mask 8.00 06/28/17 21:00 99.2 06/28/17 20:06 90 Nasal Cannula 2.00 06/28/17 20:00 94 Nasal Cannula 4.00 06/28/17 19:30 90 Nasal Cannula 2.00 06/28/17 19:30 100.1 113 22 167/90 90 171/77 06/28/17 19:00 115 06/28/17 15:00 94 Nasal Cannula 2.00 06/28/17 15:00 97.5 101 18 147/92 94 177/76 06/28/17 15:00 102 06/28/17 11:00 106 06/28/17 11:00 97.4 106 18 139/91 92 165/72 06/28/17 11:00 92 Nasal Cannula 2.00 06/28/17 08:47 92 Nasal Cannula 2.00 Exam: GENERAL: Alert in nad on O2/NC SKIN: Warm and dry CARDIOVASCULAR: ST on CM RESPIRATORY: BS CTA GASTROINTESTINAL: S/NT MUSCULOSKELETAL: No cyanosis, or edema. Palpable Bilat DP/PT LE warm w/ motor intact Pt denies abdominal or back pain Laboratory Laboratory Tests Test 06/29/17 04:41 Prothrombin Time 12.9 Prothromb Time International 1.2 Ratio Assessment and Plan Assessment: (1) Aortic dissection Status: Acute Plan POD#2 s/p L C-SC/TEVAR for acute aneurysmal degeneration of aTBAD 1. Remove spinal drain at 1000 today 2. May restart heparin SQ at 2200 3. Continue neuro checks 4. BP control - goal SBP 140-160 for now 5. Cardiac diet 6. D/C SHILPA MED[facility] [phone] Problem Qualifiers (1) Aortic dissection: Qualified Code: I71.03 - Dissection of thoracoabdominal aorta Candi Mancini Jun 29, 2017 08:51
[2017-06-29] MEDS: CLEVIDIPINE INJ 50 ML IV SCH (09:01)
[2017-06-29] MEDS: POLYETHYLENE GLYCOL 17 GM PKG PO SCH (09:01)
--- NOTE | 2017-06-29 12:06 | EKG ---
Date Performed: 06/28/2017 Time Performed: 23:34:46 PTAGE: 56 years EKG: Normal Sinus rhythm Extensive T-wave abnormality; however, it appears improved from the old tracing PREVIOUS TRACING 06/21/17 DOCTOR: Saul Murillo Interpretating Date/Time 06/29/2017 12:05:14
[2017-06-29] MEDS ORDERED: ACETAMINOPHEN/HYDROcodone 325 MG/5 MG TAB PO PRN (12:15)
[2017-06-29] MEDS: ACETAMINOPHEN/HYDROcodone 325 MG/5 MG TAB PO PRN ×2 (12:31→21:41)
[2017-06-29] MEDS: HEPARIN SODIUM - SQ 10,000 UNITS/ML VIAL SQ SCH (21:38)
--- NOTE | 2017-06-29 21:40 | MP ---
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 Thoracic endovascular aortic stent involving left subclavian artery. 2. Left carotid subclavian bypass with 8 mm Dacron 3. Intravascular ultrasound of the aorta and left iliac artery. 4. Left common femoral artery Perclose 5. Right common femoral artery Angio-Seal. 6. Left subclavian artery embolization. ATTENDING SURGEON Kecia Dixon MD ANESTHESIA General INDICATIONS Mr. James is a gentleman with an acute type B aortic dissection that was managed medically. On interval CT follow up, he was noted to have an aneurysmal degeneration several millimeters larger than previously and additionally some opacification and haziness of the proximal aorta suggestive of instability. He was taken to the operating room urgently for repair. PROCEDURE IN DETAIL Informed consent was obtained from the patient and he was taken to the operating room and placed supine on the operating room table. An appropriate time-out was taken to ensure the patient's identity, operative site and planned procedure. The administration of 1 gram of vancomycin was initiated prior to skin incision and will be discontinued after a single preoperative dose. Vancomycin was chosen because of the patient's preoperative length of stay exceeding 48 hours. Everyone in the room agreed with the time-out and we proceeded. His left neck, chest, abdomen and pelvis were prepped and draped in standard sterile fashion. An incision was made above the patient's left collarbone and carried down through subcutaneous tissue with electrocautery. The platysma was divided, scalene fat pad was mobilized, the lateral border of sternocleidomastoid was incised. The anterior scalene muscle was easily identified and transected thereby exposing the subclavian artery which was dissected free for several centimeters. On the medial aspect of the incision, the jugular vein was identified and dissected free circumferentially and the common carotid artery was identified on the medial aspect of the wound. We then turned our attention towards gaining access. A 21 gauge micropuncture needle was used to access the left common femoral artery. This was exchanged using Seldinger technique for a micropuncture sheath with a 0.025 Stork wire was introduced. The micropuncture sheath was exchanged for a 5-Scottish sheath which was used to dilate the skin, subcutaneous tract and arteriotomy. The 5-Scottish sheath was removed and then two Perclose ProGlide sutures were inserted and tagged. These will be used later. An 8-Scottish sheath was introduced. On the right-hand side a 21 gauge micropuncture needle was used to access the right common femoral artery. This exchanged using Seldinger technique with a micropuncture sheath which a 0.035 Storq wire was introduced and the micropuncture sheath was exchanged for a 5-Scottish sheath. Both sheaths were flushed. We then turned our attention toward performing the carotid subclavian bypass. The patient was systemically heparinized and throughout the remainder of the case. The ACT was kept greater than 250. Proximal and distal control of the left subclavian artery were obtained with profunda clamps and a longitudinal arteriotomy was made with an 11 blade, extended with Bryce scissors. The 8 mm Dacron was brought up on the field, spatulated and sewn end-to-side with running 5-0 Prolene suture. At the completion it was flushed and noted to be hemostatic. The graft was passed underneath the jugular vein. With pharmacological augmentation of the blood pressure, the common carotid artery was occluded proximally and distally with profunda clamps and a longitudinal arteriotomy was made with 11 blade and extended with Charlotte scissors. The graft was cut to an appropriate length, spatulated and sewn end-to-side with running 5-0 Prolene suture. At the completion, it was flushed and noted to be hemostatic. There was a nice pulse in the distal common carotid artery. The neck was temporarily packed. We then turned our attention towards the TEVAR. Both Storq wires were advanced to the ascending aorta. The left-hand Storq wire was exchanged using a catheter for Kel and over the right hand Storq wire a marker flush pigtail catheter was placed. Over the Lunderquist double curved wire and through the 8-Scottish sheath, intravascular ultrasound was obtained. Images of the aorta and left iliac artery were obtained. This showed that we were in the true lumen throughout and in fact both renal arteries, SMA and the celiac all came off the true lumen. The dissection was noted to be a Edwardo type B and the proximal landing zone immediately distal to the bovine trunk was identified. The diameter of the proximal landing zone was approximately 34.5 mm and, given this, a 36-mm device was selected. The IVUS catheter was removed and the 8-Scottish sheath was removed. Danielle dilators were used to dilate the skin, subcutaneous tract and arteriotomy and the main device which was a Valiant 36 x 200 was inserted. An interval angiogram was obtained to locate the proximal landing zone and the graft was deployed until the fabric of the graft was immediately distal to the bovine trunk. The graft was deployed without difficulty. The pigtail catheter was then removed and reinserted through the center of the graft. The delivery system was removed and a 20-Scottish Sentrant sheath was then inserted and the IVUS catheter was advanced over this. We again identified the celiac artery and confirmed that the distal diameter was appropriate for another 36-mm device. The IVUS catheter was removed. The Sentrant sheath was removed and a second 36 x 200 was inserted and deployed without difficulty so the distal aspect of the graft was immediately proximal to the celiac artery. The delivery system was removed. The Sentrant sheath was reintroduced and a Reliant balloon was used to balloon the junction between the two grafts. The completion angiogram showed excellent result and the wire catheter and sheath were removed from left groin. The Perclose were tied down providing hemostasis in the groin. There was a nice Doppler signal to the foot, then heparin was reversed with protamine. The right pigtail was rewired for a stork wire and the 5-Scottish sheath was removed as well as the pigtail and stork and the right groin was closed with AngioSeal. After the protamine had been administered, a 4-0 Monocryl was placed in the patient's left groin. We then reopened the neck incision and a 21 gauge micropuncture needle was used to access the distal aspect of the graft immediately juxtaposed to the subclavian anastomosis. This was exchanged using Seldinger technique for a micropuncture sheath through which a 0.025 Amenia wire was introduced. The micropuncture sheath was exchanged for a 4-Scottish sheath. A 0.038 catheter was placed over the Amenia wire and the Amenia wire was removed. A series of coils were then placed in the proximal left subclavian artery and the completion angiogram showed excellent occlusion of the left subclavian artery. Wire, cath and sheath were removed and the sheathotomy was closed with a 6-0 Prolene suture. The neck was found to be hemostatic and closed with 2-0 Polysorb, 2-0 Polysorb and 4-0 Monocryl. Sponge and needle counts were correct at the end of the case. I was present and scrubbed and performed the entire procedure. MD ROSANNE Albright/ /6:47 PM /9:17 PM [facility] CLINICMercedez
[2017-06-30] VITALS (13 sets, daily range): BP systolic 140–187; BP diastolic 63–114; PULSE 69–104; RESP 20–24; TEMP 97.9–99.2; O2SAT 94–98
[2017-06-30] MEDS: CLEVIDIPINE INJ 50 ML IV SCH ×2 (03:05→08:58)
[2017-06-30] MEDS: LABETALOL HCL 100 MG/20 ML VIAL IV PUSH PRN (03:12)
[2017-06-30] MEDS: CHLORHEXIDINE GLUCONATE 2 % 1 PACK (2 CLOTHS) TOP SCH (04:00)
[2017-06-30] MEDS: HEPARIN SODIUM - SQ 10,000 UNITS/ML VIAL SQ SCH ×3 (06:00→21:14)
[2017-06-30] MEDS: INSULIN ASPART SUPPLEMENTAL SCALE SQ SCH ×4 (06:04→21:00)
--- NOTE | 2017-06-30 07:26 | HHI.CCPN ---
Subjective Remarks/Hospital Course 56 year old male presented with complaints of right upper extremity weakness and bilateral lower extremity weakness on 06/21/17. The patient reported a history of lying in bed awake when he had onset of chest pressure and back pain. He reports that the pain felt like an expanding sensation in his chest and back. Then he got up and noticed having tingling in bilateral upper extremities with weakness in the right upper extremity and bilateral lower extremities. Upon arrival to ED, the patient was noted to have paresis of the right upper extremity and numbness to bilateral lower extremities with paralysis of bilateral lower extremities. In the ED a CT of aorta diagnosed type B dissection, with aneurysm degeneration and extension into the abdominal aorta. Today the patient underwent TEVAR left subclavian approach. [facility] was consulted. Subjective: 06/28: Overnight the patient became extremely hypertensive with a systolic blood pressure in the 200s, at which point in time the patient also became confused. The patient received IV antihypertensive medications, and was placed on Precedex infusion with resolution of symptomatology. The patient currently alert and oriented, normotensive. Subjective 06/29: MAXIMUM TEMPERATURE 100.1. Currently 99.3. +2 L overnight. Remains on Cardene drip at 5 mg an hour for hypertension. No longer agitated/confused. No bowel movement. 06/30: Restarted on Cleviprex due to hypertension. Clonidine on hold, will resume. HR in low 100's with frequent PVC. No BM Objective Vital Signs Date Time Temp Pulse Resp B/P Pulse Ox O2 Delivery O2 Flow Rate FiO2 06/30/17 04:00 96 Nasal Cannula 2.00 06/30/17 04:00 98.9 98 24 180/114 Intake and Output 06/29/17 06/29/17 06/30/17 08:00 16:00 00:00 Intake Total 2642 ml 467 ml Output Total 1375 ml 1600 ml Balance 1267 ml -1133 ml Result Diagram: 06/28/17 04106/28/17 041 Imaging Last Impressions Chest X-Ray 06/29/17 0007 Signed Impressions: Service Date/Time: June 00:32 - CONCLUSION: No acute disease. Hernandez Ramires MD Lumbar Puncture Fluoroscopy 06/25/17 0000 Signed Impressions: Service Date/Time: Monday, June 26, 2017 16:07 - CONCLUSION: Uncomplicated lumbar drain placement as above. Damian Taylor MD Aorta CTA 06/25/17 0000 Signed Impressions: Service Date/Time: Sunday, June 25, 2017 08:10 - CONCLUSION: 1. There is a type B aortic dissection that begins just distal to the origin of the left subclavian artery and extends inferiorly into the abdominal aorta and into the proximal right common iliac artery. It questionably also extends into the left renal artery. There is normal perfusion of all of the solid organs in the abdomen and pelvis and major aortic branches. 2. However, since the examination from 4 days ago the descending thoracic aorta has increased in size. For example at a similar level it currently measures 4.1 x 3.9 cm compared to 3.9 x 3.7 cm previously. Additionally, the aortic wall appears irregular at the distal arch and there is mild stranding around the aortic arch and descending aorta that was not present previously. There is a new small simple appearing left pleural effusion. 3. 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 The above changes concerning the aortic dissection were discussed with Dr. Dixon. Sanket Warner MD Thoracic Spine MRI 06/22/17 0000 Signed Impressions: Service Date/Time: June 08:48 - CONCLUSION: 1. Mild to moderate degenerative disc disease. No acute findings. No cord impingement or direct nerve root compression. Yamil Marks MD Cervical Spine MRI 06/22/17 0000 Signed Impressions: Service Date/Time: June 08:48 - CONCLUSION: 1. Moderate degenerative disc disease with slight reversal of normal cervical lordosis. 2. Osteophytes and mild disc protrusions at C4-5-6-7 resulting in mild AP canal stenosis and mild flattening of the anterior surface of the cord. No cord signal abnormality. Yamil Marks MD Head CT 06/21/17 0000 Signed Impressions: Service Date/Time: Wednesday, June 21, 2017 02:18 - CONCLUSION: Unremarkable exam. These findings are called to Dr. Murillo at 1431 hrs. Syd Segura MD Objective Remarks GENERAL: 48-year-old male, resting in bed in no acute distress on nasal cannula SKIN: Warm and dry. Perfused with no rash HEAD: Normocephalic. NECK: Supple, trachea midline. No JVD CARDIOVASCULAR: RRR. S1, S2. No S4 without murmur. Left subclavian surgical site dermabond no edema, erythema or drainage RESPIRATORY: Few crackles appreciated bilateral lower lobes. Active bowel sounds GASTROINTESTINAL: Abdomen soft, non-tender, nondistended. BS active. MUSCULOSKELETAL: Well perfused legs. Palpable pulses bilateral upper and lower extremities. Capillary refill brisk NEURO EXAM: Lumbar drain in situ,clear CSF no heme noted. Movement of extremities 4 , no focal deficits A/P Assessment and Plan Neuro/Psych: Acute delirium - resolved Currently on acetaminophen 650 mg every 6 hours for fever/pain 1-5 Hydromorphone 1 mg every 4 hours when necessary breakthrough pain Cardiovascular Type B aortic dissection - extends to abdominal aorta bifurcation 06/27 S/P TEVAR- left subclavian approach Hypertension - Narcan 1 mcg/kg/hr-management per surgery - Maintain systolic blood pressure [id number]'s Currently on Clevidipine gtt. Continue metoprolol 100 every 12, Norvasc 10 mg daily for hypertension. Resume clonidine 0.1 mg milligram by mouth twice a day Atorvastatin 40 mg by mouth daily for dyslipidemia -Lumbar drain-removed 06/29 - On Narcan drip at 1 leta per kilogram per minute for spinal cord ischemia prevention. Per neurosurgery discontinue at 10 AM today Respiratory Acute respiratory insufficiency - Possible early volume overload Currently on nasal cannula to maintain saturations greater than equal to 92%. Incentive spirometry while awake IV fluids discontinued Chest x-ray 06/29 AM revealed no acute cardio blurry findings GI Constipation Currently on heart healthy diet Pantoprazole for GI prophylaxis Yanet-Colace for bowel regimen. Added MiraLAX Change lactulose to scheduled and Dulcolax suppository 1 Renal/: Acute kidney injury -Maintain Adkins catheter - Strict I's and O's - Monitor creatinine and electrolytes replacement per ICU protocol Heme Leukocytosis Likely reactive secondary surgery. -Monitor CBC ID Postoperative antibiotics with cefazolin was 4 days stop date 06/29 per vascular surgery Monitor for infection FEN: Replace electrolytes as clinically indicated DVT GI prophylaxis - SCDs - Pantoprazole - Pharmacological DVT prophylaxis per surgeon- heparin will be held 06/28 and early a.m. 06/29 in anticipation for removal of lumbar drain-resume when cleared by Dr. Dixon Dispo: Level 2 Argelia Coles MD Jun 30, 2017 07:26
[2017-06-30] MEDS ORDERED: BISACODYL 10 MG SUPP RECTAL ONE (07:30)
[2017-06-30] MEDS: DOCUSATE SODIUM 50 MG/SENNA 8.6 MG TAB PO SCH ×2 (08:52→21:13)
[2017-06-30] MEDS: METOPROLOL TARTRATE 50 MG TAB PO SCH ×2 (08:53→21:13)
[2017-06-30] MEDS: ATORVASTATIN 40 MG TAB PO SCH (08:53)
[2017-06-30] MEDS: cloNIDine HCL 0.1 MG TAB PO SCH ×2 (08:53→21:14)
[2017-06-30] MEDS: PANTOPRAZOLE SOD 20 MG DELAYED RELEASE TAB PO SCH (08:53)
[2017-06-30] MEDS: LACTULOSE SYRUP 20 GM/30 ML CUP PO SCH ×2 (08:53→20:29)
[2017-06-30] MEDS: SODIUM CHLORIDE 0.9% FLUSH 10 ML FLUSH SCH ×2 (08:54→21:14)
[2017-06-30] MEDS: POLYETHYLENE GLYCOL 17 GM PKG PO SCH (08:58)
--- NOTE | 2017-06-30 10:10 | PD.VS.PN ---
Subjective POD #: 3 Procedure(s): L C-SC, TEVAR Subjective/Hospital Course Neuro intact Pt in bed resting alert Pt w/o abdominal/back pain Objective Vitals/I&O Date Time Temp Pulse Resp B/P Pulse Ox O2 Delivery O2 Flow Rate FiO2 06/30/17 04:00 96 Nasal Cannula 2.00 06/30/17 04:00 98.9 98 24 180/114 94 06/30/17 03:30 95 06/30/17 00:00 96 Nasal Cannula 2.00 06/30/17 00:00 99.1 87 24 161/100 96 06/30/17 00:00 87 06/29/17 22:57 96 Nasal Cannula 2.00 06/29/17 22:45 22 06/29/17 19:26 99.5 98 28 158/91 92 06/29/17 19:26 92 Nasal Cannula 2.00 06/29/17 19:00 102 06/29/17 15:00 94 Nasal Cannula 4.00 06/29/17 15:00 97 06/29/17 15:00 98.9 94 20 162/87 94 06/29/17 11:30 94 Nasal Cannula 4.00 06/29/17 11:00 99.4 87 20 155/89 90 06/29/17 11:00 86 06/29/17 11:00 90 06/30/17 06/30/17 06/30/17 07:00 15:00 23:00 Intake Total 530 ml Output Total 2200 ml Balance -1670 ml Exam: GENERAL: Alert in nad, afebrile SKIN: Warm and dry, incision to left neck upper chest region intact w/ surgical glue w/o R/D/S CARDIOVASCULAR: ST on CM RESPIRATORY: BS CTA GASTROINTESTINAL: S/NT MUSCULOSKELETAL: No cyanosis, or edema. Palpable Bilat DP/PT LE warm w/ motor intact Pt denies abdominal or back pain Assessment and Plan Assessment: (1) Aortic dissection Status: Acute Plan POD#3 s/p L C-SC/TEVAR for acute aneurysmal degeneration of aTBAD Pt hypertensive last night and this am, denies headache and is w/o any neurological deficits this am Clevidipine drip started this am Motor intact Plan Continue BP control - goal SBP 140-160 Cardiac diet Candi Mancini [facility] [phone] Problem Qualifiers (1) Aortic dissection: Qualified Code: I71.03 - Dissection of thoracoabdominal aorta Candi Mancini Jun 30, 2017 10:10
[2017-06-30 10:33] LABS: AUTOMATED NEUTROPHIL # 14.3 TH/MM3 (1.8-7.7); BASOPHIL % 0.2 % (0.0-2.0); EOSINOPHIL % 0.1 % (0.0-4.0); HEMATOCRIT 39.8 % (39.0-51.0); HEMO FLAGS DIFF FINAL; LYMPH % 3.5 % (9.0-44.0); LYMPHOCYTE # 0.6 TH/MM3 (1.0-4.8); MEAN CELL VOLUME 95.8 FL (80.0-100.0); MEAN CORPUSCULAR HEMOGLOBIN 31.7 PG (27.0-34.0); MONO % 10.6 % (0.0-8.0); NEUT % 85.6 % (16.0-70.0); PLATELET COUNT 220 TH/MM3 (150-450); RED BLOOD COUNT 4.16 MIL/MM3 (4.50-5.90); RED CELL DISTRIBUTION WIDTH 12.6 % (11.6-17.2); WHITE BLOOD COUNT 16.7 TH/MM3 (4.0-11.0)
[2017-06-30 11:26] LABS: ALT (GPT) 15 U/L (12-78); ANION GAP 8 MEQ/L (5-15); AST (GOT) 20 U/L (15-37); BICARBONATE 25.7 MEQ/L (21.0-32.0); BLOOD UREA NITROGEN 17 MG/DL (7-18); CHLORIDE 104 MEQ/L (98-107); GLOMERULAR FILTRATION RATE 63 ML/MIN (>89); MAGNESIUM 2.2 MG/DL (1.5-2.5); POTASSIUM 3.4 MEQ/L (3.5-5.1); SODIUM (NA) 138 MEQ/L (136-145)
[2017-06-30 11:27] LABS: ALKALINE PHOSPHATASE 100 U/L (45-117); TOTAL BILIRUBIN ADULT 0.6 MG/DL (0.2-1.0)
[2017-06-30] MEDS: MAGNESIUM HYDROXIDE SUSP 30 ML CUP PO PRN (12:00)
[2017-06-30] MEDS: LABETALOL HCL 200 MG TAB PO SCH ×2 (12:00→21:13)
[2017-07-01] VITALS (15 sets, daily range): BP systolic 124–168; BP diastolic 77–93; PULSE 71–86; RESP 16–22; TEMP 97.7–99.1; O2SAT 94–97
[2017-07-01] MEDS: CHLORHEXIDINE GLUCONATE 2 % 1 PACK (2 CLOTHS) TOP SCH ×2 (04:00→20:48)
[2017-07-01] MEDS: HEPARIN SODIUM - SQ 10,000 UNITS/ML VIAL SQ SCH ×3 (06:26→21:09)
[2017-07-01] MEDS: INSULIN ASPART SUPPLEMENTAL SCALE SQ SCH ×4 (06:26→21:10)
[2017-07-01] MEDS: hydrALAZINE HCL 20 MG/ML VIAL IV PRN (06:33)
[2017-07-01] MEDS: PANTOPRAZOLE SOD 20 MG DELAYED RELEASE TAB PO SCH (07:32)
[2017-07-01] MEDS: cloNIDine HCL 0.1 MG TAB PO SCH ×3 (07:32→21:09)
[2017-07-01] MEDS: LABETALOL HCL 200 MG TAB PO SCH ×3 (07:33→21:08)
[2017-07-01] MEDS: LACTULOSE SYRUP 20 GM/30 ML CUP PO SCH ×2 (07:33→21:08)
[2017-07-01] MEDS: POLYETHYLENE GLYCOL 17 GM PKG PO SCH (07:33)
[2017-07-01] MEDS: DOCUSATE SODIUM 50 MG/SENNA 8.6 MG TAB PO SCH ×2 (07:34→21:09)
[2017-07-01] MEDS: ATORVASTATIN 40 MG TAB PO SCH (07:34)
[2017-07-01] MEDS: SODIUM CHLORIDE 0.9% FLUSH 10 ML FLUSH SCH ×2 (07:34→21:09)
--- NOTE | 2017-07-01 08:00 | PD.TRANSFR ---
Transfer Summary Admission Date Jun 21, 2017 at 03:30 Admitting Diagnosis Type B Aortic Dissection Diagnoses: (1) Dissecting aneurysm of thoracic aorta, [place] type B Diagnosis: Principal (2) s/p TEVAR Diagnosis: Principal (3) Uncontrolled hypertension Diagnosis: Principal (4) Hypertension Diagnosis: Secondary (5) Probable JOSIE Diagnosis: Secondary Transfer Summary/Subjective 56 year old male presented with complaints of right upper extremity weakness and bilateral lower extremity weakness on 06/21/17. The patient reported a history of lying in bed awake when he had onset of chest pressure and back pain. He reports that the pain felt like an expanding sensation in his chest and back. Then he got up and noticed having tingling in bilateral upper extremities with weakness in the right upper extremity and bilateral lower extremities. Upon arrival to ED, the patient was noted to have paresis of the right upper extremity and numbness to bilateral lower extremities with paralysis of bilateral lower extremities. In the ED a CT of aorta diagnosed type B dissection, with aneurysm degeneration and extension into the abdominal aorta. Today the patient underwent TEVAR left subclavian approach. [facility] was consulted. Subjective: 06/28: Overnight the patient became extremely hypertensive with a systolic blood pressure in the 200s, at which point in time the patient also became confused. The patient received IV antihypertensive medications, and was placed on Precedex infusion with resolution of symptomatology. The patient currently alert and oriented, normotensive. 06/29: MAXIMUM TEMPERATURE 100.1. Currently 99.3. +2 L overnight. Remains on Cardene drip at 5 mg an hour for hypertension. No longer agitated/confused. No bowel movement. 06/30: Restarted on Cleviprex due to hypertension. Clonidine on hold, will resume. HR in low 100's with frequent PVC. No BM 07/01: Remains off Cleviprex, BP better controlled after restarting clonidine. Will increase clonidine dose to 0.2 mg every 8 hours. Had 1 BM. Episodes of apnea while sleeping. Probably has undiagnosed sleep apnea. Need OP work up Objective Vital Signs Date Time Temp Pulse Resp B/P Pulse Ox O2 Delivery O2 Flow Rate FiO2 07/01/17 03:57 78 07/01/17 03:55 99.1 22 168/93 96 07/01/17 03:55 Nasal Cannula 4.00 06/30/17 09:00 21 Intake and Output 06/30/17 06/30/1717 08:00 16:00 00:00 Intake Total 530 ml 860 ml Output Total 2200 ml 1850 ml Balance -1670 ml -990 ml Result Diagram: 06/30/17 0959 06/30/17 0959 Imaging Last Impressions Chest X-Ray 06/29/17 0007 Signed Impressions: Service Date/Time: June 00:32 - CONCLUSION: No acute disease. Hernandez Ramires MD Lumbar Puncture Fluoroscopy 06/25/17 Signed Impressions: Service Date/Time: Monday, June 26, 2017 16:07 - CONCLUSION: Uncomplicated lumbar drain placement as above. Damian Taylor MD Aorta CTA 06/25/17 Signed Impressions: Service Date/Time: Sunday, June 25, 2017 08:10 - CONCLUSION: 1. There is a type B aortic dissection that begins just distal to the origin of the left subclavian artery and extends inferiorly into the abdominal aorta and into the proximal right common iliac artery. It questionably also extends into the left renal artery. There is normal perfusion of all of the solid organs in the abdomen and pelvis and major aortic branches. 2. However, since the examination from 4 days ago the descending thoracic aorta has increased in size. For example at a similar level it currently measures 4.1 x 3.9 cm compared to 3.9 x 3.7 cm previously. Additionally, the aortic wall appears irregular at the distal arch and there is mild stranding around the aortic arch and descending aorta that was not present previously. There is a new small simple appearing left pleural effusion. 3. 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 The above changes concerning the aortic dissection were discussed with Dr. Dixon. Sanket Warner MD Thoracic Spine MRI 06/22/17 Signed Impressions: Service Date/Time: June 08:48 - CONCLUSION: 1. Mild to moderate degenerative disc disease. No acute findings. No cord impingement or direct nerve root compression. Yamil Marks MD Cervical Spine MRI 06/22/17 Signed Impressions: Service Date/Time: June 08:48 - CONCLUSION: 1. Moderate degenerative disc disease with slight reversal of normal cervical lordosis. 2. Osteophytes and mild disc protrusions at C4-5-6-7 resulting in mild AP canal stenosis and mild flattening of the anterior surface of the cord. No cord signal abnormality. Yamil Marks MD Head CT 06/21/17 0000 Signed Impressions: Service Date/Time: Wednesday, June 21, 2017 02:18 - CONCLUSION: Unremarkable exam. These findings are called to Dr. Murillo at 1431 hrs. Syd Segura MD Objective Remarks GENERAL: 48-year-old male, resting in bed in no acute distress on nasal cannula SKIN: Warm and dry. Perfused with no rash HEAD: Normocephalic. NECK: Supple, trachea midline. No JVD CARDIOVASCULAR: RRR. S1, S2. No S4 without murmur. Left subclavian surgical site dermabond no edema, erythema or drainage RESPIRATORY: Few crackles appreciated bilateral lower lobes. Active bowel sounds GASTROINTESTINAL: Abdomen soft, non-tender, nondistended. BS active. MUSCULOSKELETAL: Well perfused legs. Palpable pulses bilateral upper and lower extremities. Capillary refill brisk NEURO EXAM: Lumbar drain removed. Movement of extremities 4 , no focal deficits A/P Assessment and Plan Neuro/Psych: Acute delirium - resolved - Currently on acetaminophen 650 mg every 6 hours for fever/pain 1-5 - Hydromorphone 1 mg every 4 hours when necessary breakthrough pain Cardiovascular Type B aortic dissection - extends to abdominal aorta bifurcation 06/27 S/P TEVAR- left subclavian approach Uncontrolled Hypertension - Maintain systolic blood pressure [id number]'s - Currently off Clevidipine gtt. Continue Norvasc 10 mg daily for hypertension. Resumed clonidine 0.1 mg milligram by mouth twice a day on 06/30. Increase to 0.2 mg po q8hr Labetalol 200 mg q12 started by Vascular surgery. Will increase labetalol to q8hr and DC metoprolol - Atorvastatin 40 mg by mouth daily for dyslipidemia - Lumbar drain-removed 06/29 Respiratory Acute respiratory insufficiency - Possible early volume overload Currently on nasal cannula to maintain saturations greater than equal to 92%. Incentive spirometry while awake IV fluids to KVO Chest x-ray 810 AM revealed no acute cardio pulm findings GI Constipation Heart healthy diet Pantoprazole for GI prophylaxis Yanet-Colace for bowel regimen. MiraLAX Lactulose to scheduled and Dulcolax suppository 1 given 07/01 Had BM overnight Renal/: Acute kidney injury -Maintain Adkins catheter -Strict I's and O's -Monitor creatinine and electrolytes replacement per ICU protocol Heme Leukocytosis Likely reactive secondary surgery. -Monitor CBC-repeat today ID Postoperative antibiotics with cefazolin was 4 days stop date 06/29 per vascular surgery Monitor for infection FEN: Replace electrolytes as clinically indicated DVT GI prophylaxis - SCDs - Pantoprazole - Pharmacological DVT prophylaxis with heparin 5000 U q8hr resumed Dispo: Level 2 Consult [facility] to assume care 07/02/17. Discussed with Dr. Dixon. Transfer to [facility] with Argelia Venegas MD Jul 01, 2017 08:00
[2017-07-01 08:42] LABS: AUTOMATED NEUTROPHIL # 9.1 TH/MM3 (1.8-7.7); BASOPHIL % 0.1 % (0.0-2.0); EOSINOPHIL # 0.1 TH/MM3 (0-0.4); EOSINOPHIL % 0.8 % (0.0-4.0); HEMATOCRIT 35.1 % (39.0-51.0); HEMO FLAGS DIFF FINAL; LYMPH % 6.4 % (9.0-44.0); LYMPHOCYTE # 0.7 TH/MM3 (1.0-4.8); MEAN CELL VOLUME 95.1 FL (80.0-100.0); MEAN CORPUSCULAR HEMOGLOBIN 32.5 PG (27.0-34.0); MEAN CORPUSCULAR HGB CONC 34.2 % (32.0-36.0); MONO % 11.3 % (0.0-8.0); NEUT % 81.4 % (16.0-70.0); PLATELET COUNT 191 TH/MM3 (150-450); RED CELL DISTRIBUTION WIDTH 12.5 % (11.6-17.2); WHITE BLOOD COUNT 11.2 TH/MM3 (4.0-11.0)
--- NOTE | 2017-07-01 08:46 | PD.VS.PN ---
Subjective POD #: 4 Procedure(s): L C-SC, TEVAR Subjective/Hospital Course Neuro intact Pt w/o abdominal/back pain bp better controlled ambulated yesterday Objective Vitals/I&O Date Time Temp Pulse Resp B/P Pulse Ox O2 Delivery O2 Flow Rate FiO2 07/01/17 07:40 97 21 07/01/17 07:37 98.6 86 16 165/89 94 07/01/17 07:37 86 07/01/17 07:37 98 Nasal Cannula 2.00 07/01/17 03:57 78 07/01/17 03:55 99.1 74 22 168/93 96 07/01/17 03:55 96 Nasal Cannula 4.00 06/30/17 23:12 99.2 70 20 140/88 94 06/30/17 23:12 94 Nasal Cannula 4.00 06/30/17 23:00 69 06/30/17 20:53 97 Nasal Cannula 2.00 06/30/17 19:48 97 Nasal Cannula 3.00 06/30/17 19:48 98.1 83 20 152/82 95 06/30/17 19:00 86 06/30/17 15:00 98.7 83 20 162/97 98 06/30/17 15:00 83 06/30/17 15:00 98 Nasal Cannula 06/30/17 11:00 98.8 83 20 162/101 94 06/30/17 11:00 94 Nasal Cannula 06/30/17 11:00 83 06/30/17 09:00 94 21 Exam: Neuro intact SHETTY palpable L UE and B LE pulses L neck incision ok B groins ok Laboratory Laboratory Tests Test 06/30/17 07/01/17 09:59 07:55 White Blood Count 16.7 11.2 Red Blood Count 4.16 3.70 Hemoglobin 13.2 12.0 Hematocrit 39.8 35.1 Mean Corpuscular Volume 95.8 95.1 Mean Corpuscular Hemoglobin 31.7 32.5 Mean Corpuscular Hemoglobin 33.0 34.2 Concent Red Cell Distribution Width 12.6 12.5 Platelet Count 220 191 Mean Platelet Volume 8.8 9.5 Neutrophils (%) (Auto) 85.6 81.4 Lymphocytes (%) (Auto) 3.5 6.4 Monocytes (%) (Auto) 10.6 11.3 Eosinophils (%) (Auto) 0.1 0.8 Basophils (%) (Auto) 0.2 0.1 Neutrophils # (Auto) 14.3 9.1 Lymphocytes # (Auto) 0.6 0.7 Monocytes # (Auto) 1.8 1.3 Eosinophils # (Auto) 0.0 0.1 Basophils # (Auto) 0.0 0.0 CBC Comment DIFF FINAL DIFF FINAL Differential Comment Sodium Level 138 Potassium Level 3.4 Chloride Level 104 Carbon Dioxide Level 25.7 Anion Gap 8 Blood Urea Nitrogen 17 Creatinine 1.18 Estimat Glomerular Filtration 63 Rate Random Glucose 137 Calcium Level 8.6 Magnesium Level 2.2 Total Bilirubin 0.6 Aspartate Amino Transf 20 (AST/SGOT) Alanine Aminotransferase 15 (ALT/SGPT) Alkaline Phosphatase 100 Total Protein 6.5 Albumin 2.1 Assessment and Plan Assessment: (1) Aortic dissection Status: Acute Plan POD#4 s/p L C-SC/TEVAR for acute aneurysmal degeneration of aTBAD Neuro intact BP better controlled - continue to transition to po meds (labetolol started yesterday) transfer to [facility] on tele PT/OOB Problem Qualifiers (1) Aortic dissection: Qualified Code: I71.03 - Dissection of thoracoabdominal aorta Gregorio Dixon MD Jul 01, 2017 08:46
[2017-07-02] VITALS (26 sets, daily range): BP systolic 124–154; BP diastolic 75–87; PULSE 66–79; RESP 18–20; TEMP 97.5–99; O2SAT 95–98
[2017-07-02] MEDS: ACETAMINOPHEN/HYDROcodone 325 MG/5 MG TAB PO PRN ×2 (04:10→20:57)
[2017-07-02] MEDS: INSULIN ASPART SUPPLEMENTAL SCALE SQ SCH ×4 (05:42→20:57)
[2017-07-02] MEDS: cloNIDine HCL 0.1 MG TAB PO SCH ×3 (05:43→20:56)
[2017-07-02] MEDS: LABETALOL HCL 200 MG TAB PO SCH ×3 (05:43→20:56)
[2017-07-02] MEDS: HEPARIN SODIUM - SQ 10,000 UNITS/ML VIAL SQ SCH ×3 (05:44→20:57)
[2017-07-02 07:24] LABS: HEMATOCRIT 30.9 % (39.0-51.0); MEAN CELL VOLUME 94.6 FL (80.0-100.0); MEAN CORPUSCULAR HEMOGLOBIN 32.5 PG (27.0-34.0); MEAN CORPUSCULAR HGB CONC 34.4 % (32.0-36.0); PLATELET COUNT 173 TH/MM3 (150-450); RED BLOOD COUNT 3.27 MIL/MM3 (4.50-5.90); RED CELL DISTRIBUTION WIDTH 12.6 % (11.6-17.2); REVIEW FLAG FINAL; WHITE BLOOD COUNT 8.6 TH/MM3 (4.0-11.0)
[2017-07-02 07:51] LABS: BICARBONATE 25.2 MEQ/L (21.0-32.0); POTASSIUM 3.7 MEQ/L (3.5-5.1)
[2017-07-02] MEDS: POLYETHYLENE GLYCOL 17 GM PKG PO SCH (08:27)
[2017-07-02] MEDS: LACTULOSE SYRUP 20 GM/30 ML CUP PO SCH ×2 (08:27→20:56)
[2017-07-02] MEDS: DOCUSATE SODIUM 50 MG/SENNA 8.6 MG TAB PO SCH ×2 (08:27→20:57)
[2017-07-02] MEDS: ATORVASTATIN 40 MG TAB PO SCH (08:28)
[2017-07-02] MEDS: PANTOPRAZOLE SOD 20 MG DELAYED RELEASE TAB PO SCH (08:28)
[2017-07-02] MEDS: SODIUM CHLORIDE 0.9% FLUSH 10 ML FLUSH SCH ×2 (08:29→20:57)
--- NOTE | 2017-07-02 08:50 | PD.VS.PN ---
Subjective POD #: 5 Procedure(s): L C-SC, TEVAR Subjective/Hospital Course Neuro intact looks great bp better controlled Objective Vitals/I&O Date Time Temp Pulse Resp B/P Pulse Ox O2 Delivery O2 Flow Rate FiO2 07/02/17 06:00 70 07/02/17 05:00 75 07/02/17 04:00 72 07/02/17 03:40 95 Nasal Cannula 2.00 07/02/17 03:40 98.3 73 18 153/85 95 07/02/17 03:00 75 07/02/17 02:00 77 07/02/17 01:00 77 07/02/17 00:00 73 07/01/17 23:40 97 Nasal Cannula 2.00 07/01/17 23:40 98.3 75 20 126/84 97 07/01/17 23:00 71 07/01/17 22:00 74 07/01/17 21:00 95 Nasal Cannula 2.00 07/01/17 21:00 98.0 79 20 163/87 95 07/01/17 21:00 78 07/01/17 20:03 Nasal Cannula 2.00 07/01/17 20:00 72 07/01/17 19:00 74 07/01/17 18:14 72 07/01/17 17:08 74 07/01/17 16:26 82 07/01/17 15:23 81 07/01/17 15:23 97.7 81 16 137/77 97 07/01/17 15:23 97 Nasal Cannula 2.00 07/01/17 11:44 98.1 75 16 124/84 97 07/01/17 11:44 97 Room Air 07/01/17 11:44 75 07/02/17 07/02/17 07/02/17 07:00 15:00 23:00 Intake Total 720 ml Output Total 375 ml Balance 345 ml Exam: L neck incision c/d/i Good leg strength Laboratory Laboratory Tests Test 07/02/17 06:01 White Blood Count 8.6 Red Blood Count 3.27 Hemoglobin 10.6 Hematocrit 30.9 Mean Corpuscular Volume 94.6 Mean Corpuscular Hemoglobin 32.5 Mean Corpuscular Hemoglobin 34.4 Concent Red Cell Distribution Width 12.6 Platelet Count 173 Mean Platelet Volume 9.7 Sodium Level 140 Potassium Level 3.7 Chloride Level 106 Carbon Dioxide Level 25.2 Anion Gap 9 Blood Urea Nitrogen 25 Creatinine 1.48 Estimat Glomerular Filtration 49 Rate Random Glucose 98 Calcium Level 8.6 Assessment and Plan Assessment: (1) Aortic dissection Status: Acute Plan POD#5 s/p L C-SC/TEVAR for acute aneurysmal degeneration of aTBAD Neuro intact BP better controlled - goal SBP 120-140 PT/OOB d/c planning will arrange f/u in my clinic in 2-3 weeks with CTA Problem Qualifiers (1) Aortic dissection: Qualified Code: I71.03 - Dissection of thoracoabdominal aorta Gregorio Dixon MD Jul 02, 2017 08:50
--- NOTE | 2017-07-02 09:12 | HHI.PR ---
Subjective Remarks marketing development specialist Note: 56 year old male presented with complaints of right upper extremity weakness and bilateral lower extremity weakness on 06/21/17. The patient reported a history of lying in bed awake when he had onset of chest pressure and back pain. He reports that the pain felt like an expanding sensation in his chest and back. Then he got up and noticed having tingling in bilateral upper extremities with weakness in the right upper extremity and bilateral lower extremities. Upon arrival to ED, the patient was noted to have paresis of the right upper extremity and numbness to bilateral lower extremities with paralysis of bilateral lower extremities. In the ED a CT of aorta diagnosed type B dissection, with aneurysm degeneration and extension into the abdominal aorta. Today the patient underwent TEVAR left subclavian approach. CCM was consulted. 06/28: Overnight the patient became extremely hypertensive with a systolic blood pressure in the 200s, at which point in time the patient also became confused. The patient received IV antihypertensive medications, and was placed on Precedex infusion with resolution of symptomatology. The patient currently alert and oriented, normotensive. 06/29: MAXIMUM TEMPERATURE 100.1. Currently 99.3. +2 L overnight. Remains on Cardene drip at 5 mg an hour for hypertension. No longer agitated/confused. No bowel movement. 06/30: Restarted on Cleviprex due to hypertension. Clonidine on hold, will resume. HR in low 100's with frequent PVC. No BM Hospitalist Notes: 07/02: I have been asked to see this pleasant patient starting Today, as I know he was diagnosed with Type B Aortic Dissection. Status post TEVAR Thoracic Endovascular Aortic Repair. Seen in his bedroom, discussed with nurse Miss Castellon no new issues, no nausea, vomit or diarrhea, Objective Vital Signs Date Time Temp Pulse Resp B/P Pulse Ox O2 Delivery O2 Flow Rate FiO2 07/02/17 06:00 70 07/02/17 05:00 75 07/02/17 04:00 72 07/02/17 03:40 95 Nasal Cannula 2.00 07/02/17 03:40 98.3 73 18 153/85 95 07/02/17 03:00 75 07/02/17 02:00 77 07/02/17 01:00 77 07/02/17 00:00 73 07/01/17 23:40 97 Nasal Cannula 2.00 07/01/17 23:40 98.3 75 20 126/84 97 07/01/17 23:00 71 07/01/17 22:00 74 07/01/17 21:00 95 Nasal Cannula 2.00 07/01/17 21:00 98.0 79 20 163/87 95 07/01/17 21:00 78 07/01/17 20:03 Nasal Cannula 2.00 07/01/17 20:00 72 07/01/17 19:00 74 07/01/17 18:14 72 07/01/17 17:08 74 07/01/17 16:26 82 07/01/17 15:23 81 07/01/17 15:23 97.7 81 16 137/77 97 07/01/17 15:23 97 Nasal Cannula 2.00 07/01/17 11:44 98.1 75 16 124/84 97 07/01/17 11:44 97 Room Air 07/01/17 11:44 75 I/O 07/01/17 07/01/17 07/01/17 07/02/17 07/02/17 07/02/17 06:59 14:59 22:59 06:59 14:59 22:59 Intake Total 440 ml 600 ml 720 ml Output Total 965 ml 800 ml 375 ml Balance -525 ml -200 ml 345 ml Intake Oral 240 ml 600 ml 720 ml IV Total 200 ml 0 ml Output Urine Total 965 ml 800 ml 375 ml # Bowel Movements 0 0 0 Result Diagram: 07/02/17 0601 07/02/17 0601 Imaging Last Impressions Chest X-Ray 06/29/17 0007 Signed Impressions: Service Date/Time: June 00:32 - CONCLUSION: No acute disease. Hernandez Ramires MD Lumbar Puncture Fluoroscopy 06/25/17 0000 Signed Impressions: Service Date/Time: Monday, June 26, 2017 16:07 - CONCLUSION: Uncomplicated lumbar drain placement as above. Damian Taylor MD Aorta CTA 06/25/17 0000 Signed Impressions: Service Date/Time: Sunday, June 25, 2017 08:10 - CONCLUSION: 1. There is a type B aortic dissection that begins just distal to the origin of the left subclavian artery and extends inferiorly into the abdominal aorta and into the proximal right common iliac artery. It questionably also extends into the left renal artery. There is normal perfusion of all of the solid organs in the abdomen and pelvis and major aortic branches. 2. However, since the examination from 4 days ago the descending thoracic aorta has increased in size. For example at a similar level it currently measures 4.1 x 3.9 cm compared to 3.9 x 3.7 cm previously. Additionally, the aortic wall appears irregular at the distal arch and there is mild stranding around the aortic arch and descending aorta that was not present previously. There is a new small simple appearing left pleural effusion. 3. 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 The above changes concerning the aortic dissection were discussed with Dr. Dixon. Sanket Warner MD Thoracic Spine MRI 06/22/17 0000 Signed Impressions: Service Date/Time: June 08:48 - CONCLUSION: 1. Mild to moderate degenerative disc disease. No acute findings. No cord impingement or direct nerve root compression. Yamil Marks MD Cervical Spine MRI 06/22/17 0000 Signed Impressions: Service Date/Time: June 08:48 - CONCLUSION: 1. Moderate degenerative disc disease with slight reversal of normal cervical lordosis. 2. Osteophytes and mild disc protrusions at C4-5-6-7 resulting in mild AP canal stenosis and mild flattening of the anterior surface of the cord. No cord signal abnormality. Yamil Marks MD Head CT 06/21/17 0000 Signed Impressions: Service Date/Time: Wednesday, June 21, 2017 02:18 - CONCLUSION: Unremarkable exam. These findings are called to Dr. Murillo at 1431 hrs. Syd Segura MD Procedures 06/27/17 Thoracic Endovascular Aortic Repair Other Results Laboratory Tests Test 06/27/17 06/29/17 06/30/17 07/01/17 08:15 04:41 09:59 07:55 Blood Type O POSITIVE Antibody Screen NEGATIVE Crossmatch Leukocyte-Reduced Red Blood Cells Blood Bank Comment Prothrombin Time 12.9 SEC Prothromb Time International 1.2 RATIO Ratio Magnesium Level 2.2 MG/DL Total Bilirubin 0.6 MG/DL Aspartate Amino Transf 20 U/L (AST/SGOT) Alanine Aminotransferase 15 U/L (ALT/SGPT) Alkaline Phosphatase 100 U/L Total Protein 6.5 GM/DL Albumin 2.1 GM/DL Neutrophils (%) (Auto) 81.4 % Lymphocytes (%) (Auto) 6.4 % Monocytes (%) (Auto) 11.3 % Eosinophils (%) (Auto) 0.8 % Basophils (%) (Auto) 0.1 % Neutrophils # (Auto) 9.1 TH/MM3 Lymphocytes # (Auto) 0.7 TH/MM3 Monocytes # (Auto) 1.3 TH/MM3 Eosinophils # (Auto) 0.1 TH/MM3 Basophils # (Auto) 0.0 TH/MM3 CBC Comment DIFF FINAL Differential Comment Test 07/02/17 06:01 White Blood Count 8.6 TH/MM3 Red Blood Count 3.27 MIL/MM3 Hemoglobin 10.6 GM/DL Hematocrit 30.9 % Mean Corpuscular Volume 94.6 FL Mean Corpuscular Hemoglobin 32.5 PG Mean Corpuscular Hemoglobin 34.4 % Concent Red Cell Distribution Width 12.6 % Platelet Count 173 TH/MM3 Mean Platelet Volume 9.7 FL Sodium Level 140 MEQ/L Potassium Level 3.7 MEQ/L Chloride Level 106 MEQ/L Carbon Dioxide Level 25.2 MEQ/L Anion Gap 9 MEQ/L Blood Urea Nitrogen 25 MG/DL Creatinine 1.48 MG/DL Estimat Glomerular Filtration 49 ML/MIN Rate Random Glucose 98 MG/DL Calcium Level 8.6 MG/DL Objective Remarks GENERAL: No acute distress. SKIN: Warm and dry. Perfused with no rash HEAD: Normocephalic. NECK: Supple, trachea midline. No JVD CARDIOVASCULAR: RRR. S1, S2. No S4 without murmur. Left subclavian surgical site with edema and erythema, clean surgical wound. RESPIRATORY: Decreased breath sounds bilateral, no wheezing, or crackles. GASTROINTESTINAL: Abdomen soft, non-tender, nondistended. BS active. MUSCULOSKELETAL: Well perfused legs. Palpable pulses bilateral upper and lower extremities. NEURO EXAM: Lumbar drain in situ,clear CSF no heme noted. Movement of extremities 4 , no focal deficits Medications and IVs Current Medications Medications (Trade) Dose Ordered Sig/Rios Route Start Time Stop Time Status Last Admin (NS Flush) 2 ml UNSCH PRN .XX 06/21/17 04:15 06/24/17 01:40 (NS Flush) 2 ml BID .XX 06/21/17 09:00 07/02/17 08:29 (Tylenol) 650 mg Q6H PRN PO 06/21/17 04:15 06/27/17 17:35 (Ativan Inj) 1 mg Q1H PRN IV 06/21/17 04:15 (Zofran Inj) 4 mg Q6H PRN IV 06/21/17 04:15 06/21/17 14:52 (Ambien) 5 mg HS PRN PO 06/21/17 04:15 06/25/17 20:22 Miscellaneous Information 1 Q361D XX 06/21/17 04:15 06/21/17 04:15 (Chlorhexidine 2% Cloth) Taper DAILY@04 TOP 06/22/17 04:00 06/18/18 03:59 06/30/17 04:00 (Chlorhexidine 2% Cloth) 3 pack UNSCH PRN TOP 06/21/17 04:15 (Yanet-Colace) 1 tab BID PO 06/21/17 09:00 07/02/17 08:27 (Milk Of Magnanshu Liq) 30 ml Q12H PRN PO 06/21/17 04:15 06/30/17 12:00 (Dulcolax Supp) 10 mg DAILY PRN RECTAL 06/21/17 04:15 (Norvasc) 10 mg DAILY PO 06/21/17 09:00 07/02/17 08:27 (Lipitor) 40 mg DAILY PO 06/27/17 09:00 07/02/17 08:28 (Protonix) 20 mg DAILY PO 06/27/17 09:00 07/02/17 08:28 (D50w (Vial) Inj) 50 ml UNSCH PRN IV 06/27/17 13:15 Glucagon 1 mg 1 mg UNSCH PRN OTHER 06/27/17 13:15 Potassium Chloride 100 ml @ 50 mls/hr Q2H PRN IV 06/27/17 13:15 (KCl 20 Meq Premix Inj) 100 ml @ 50 mls/hr Q2H PRN IV 06/27/17 13:15 Potassium Bicarb/ Potassium Chloride 50 meq 50 meq UNSCH PRN PO 06/27/17 13:15 Potassium Chloride 100 ml @ 25 mls/hr UNSCH PRN IV 06/27/17 13:15 06/30/17 22:18 Potassium Chloride 100 ml @ 50 mls/hr Q2H PRN IV 06/27/17 13:15 (Magnesium Sulfate Inj/NS Inj) 100 ml @ 50 mls/hr UNSCH PRN IV 06/27/17 13:15 Magnesium Oxide 800 mg 800 mg UNSCH PRN PO 06/27/17 13:15 (Magnesium Sulfate Inj/NS Inj) 100 ml @ 50 mls/hr UNSCH PRN IV 06/27/17 13:15 Potassium Phosphate 2000 mg 2,000 mg Q4H PRN PO 06/27/17 13:15 (Sodium Phosphate Inj/NS 250 ml Inj) 250 ml @ 42 mls/hr UNSCH PRN IV 06/27/17 13:15 Potassium Phosphate 2000 mg 2,000 mg UNSCH PRN PO/TUBE 06/27/17 13:15 (Potassium Phosphate Inj/NS 250 ml Inj) 260 ml @ 42 mls/hr UNSCH PRN IV 06/27/17 13:15 Hydromorphone HCl 1 mg 1 mg Q4H PRN IV PUSH 06/27/17 18:45 06/29/17 05:51 (Narcan Inj/D5W Inj) 250 ml @ 0 mls/hr TITRATE IV 06/27/17 21:45 06/28/17 00:33 (Apresoline Inj) 10 mg Q2H PRN IV 06/28/17 04:15 07/01/17 06:33 Labetalol HCl 10 mg 10 mg Q1HR PRN IV PUSH 06/28/17 05:00 06/30/17 03:12 (Cleviprex Inj) 50 ml @ 0 mls/hr TITRATE IV 06/29/17 08:15 06/30/17 08:58 (Miralax) 17 gm DAILY PO 06/29/17 09:00 07/02/17 08:27 (Heparin Inj) 5,000 units Q8HR SQ 06/29/17 22:00 07/02/17 05:44 ([place] 5-325 Mg) 1 tab Q6H PRN PO 06/29/17 12:15 07/02/17 04:10 ([place] 5-325 Mg) 2 tab Q6H PRN PO 06/29/17 12:15 (Lactulose Liq) 30 ml Q12H PO 06/30/17 09:00 07/02/17 08:27 (Catapres) 0.2 mg Q8HR PO 07/01/17 07:00 07/02/17 05:43 (Trandate) 200 mg Q8HR PO 07/01/17 14:00 07/02/17 05:43 A/P Assessment and Plan 1. Acute Delirium Resolved on Acetaminophen and Hydromorphone 2. 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 Hypertension Narcan 1 mcg/Kg/Hr management per surgery maintain systolic blood pressure 140-160 currently on clevidipine gtt. continue Labetalol 200 mg every 8 hours, Norvasc 10 mg daily for hypertension Clonidine 0.2 mg q 8 hours, Atorvastatin 40 mg for Hyperlipidemia, Narcan drip at 1 mcg per Kilogram for Spinal Cord ischemia prevention. Discontinued by Neurosurgery. Lumbar drain removed 06/29 4. Acute Respiratory Insufficiency Improved IV fluids discontinued 5. Acute Kidney Injury, Adkins Cath, Monitor Electrolytes and Output 6. Postoperative antibiotics with Cefazolin was 4 days stopped 06/29 per Vascular Surgery, Leukocytosis Improved. Continue Heart Healthy diet GI prophylaxis with Pantoprazole DVT prophylaxis SCDs and Heparin. Discharge Planning Once cleared by specialists. Phu Paulino MD Jul 02, 2017 09:12 Once cleared by specialists. Phu Paulino MD Jul 02, 2017 09:12
--- NOTE | 2017-07-02 19:38 | RADRPT ---
EXAM DATE/TIME: 07/02/2017 17:11 [facility] COMPARISON: No previous studies available for comparison. INDICATIONS : Increased lab values. MEDICAL HISTORY : Hypertension. Paresthesia. Weakness. Gait problems. Alcohol use. Tobacco use. SURGICAL HISTORY : None. ENCOUNTER: Initial ACUITY: 1 day PAIN SCORE: 0/10 LOCATION: Bilateral flank MEASUREMENTS: RIGHT KIDNEY: 11.8 x 5.5 x 5.3 cm LEFT KIDNEY: 12.2 x 6.4 x 6.2 cm FINDINGS: RIGHT KIDNEY: Mildly diffusely echogenic suggesting medical renal disease. No evidence of hydronephrosis. 2.0 x 2.0 x 2.2 cm simple cyst in the upper pole. LEFT KIDNEY: Mildly diffusely echogenic suggesting medical renal disease. No evidence of hydronephrosis. 5.1 x 4.8 x 5.2 cm cyst in the upper pole with single thin septation. 2.0 x 1.9 x 1.9 cm simple cyst in the up per pole. Left pleural effusion noted. BLADDER: Within normal limits given the degree of distension. CONCLUSION: Bilateral mild renal cortical hyperechogenicity suggesting medical renal disease. No evidence of hydr onephrosis. Bilateral renal cysts. Madhu Agustin MD on July 02, 2017 at 19:34 Board Certified Radiologist. This report was verified electronically.
[2017-07-02] MEDS: CHLORHEXIDINE GLUCONATE 2 % 1 PACK (2 CLOTHS) TOP SCH (20:58)
[2017-07-03] VITALS (28 sets, daily range): BP systolic 120–155; BP diastolic 69–95; PULSE 67–84; RESP 16–20; TEMP 97.7–98.9; O2SAT 92–100
[2017-07-03] MEDS: ACETAMINOPHEN/HYDROcodone 325 MG/5 MG TAB PO PRN ×2 (04:05→22:07)
[2017-07-03] MEDS: cloNIDine HCL 0.1 MG TAB PO SCH ×3 (05:08→22:06)
[2017-07-03] MEDS: LABETALOL HCL 200 MG TAB PO SCH ×3 (05:09→22:06)
[2017-07-03] MEDS: HEPARIN SODIUM - SQ 10,000 UNITS/ML VIAL SQ SCH ×3 (05:09→22:00)
[2017-07-03] MEDS: MAGNESIUM HYDROXIDE SUSP 30 ML CUP PO PRN (05:13)
[2017-07-03] MEDS: INSULIN ASPART SUPPLEMENTAL SCALE SQ SCH ×4 (06:00→21:00)
[2017-07-03 06:45] LABS: HEMATOCRIT 31.5 % (39.0-51.0); MEAN CELL VOLUME 95.8 FL (80.0-100.0); MEAN CORPUSCULAR HEMOGLOBIN 32.2 PG (27.0-34.0); MEAN CORPUSCULAR HGB CONC 33.7 % (32.0-36.0); PLATELET COUNT 202 TH/MM3 (150-450); RED BLOOD COUNT 3.29 MIL/MM3 (4.50-5.90); RED CELL DISTRIBUTION WIDTH 12.5 % (11.6-17.2); REVIEW FLAG FINAL; WHITE BLOOD COUNT 8.7 TH/MM3 (4.0-11.0)
[2017-07-03 07:13] LABS: BICARBONATE 24.5 MEQ/L (21.0-32.0); MAGNESIUM 2.2 MG/DL (1.5-2.5); POTASSIUM 3.8 MEQ/L (3.5-5.1)
[2017-07-03] MEDS: ATORVASTATIN 40 MG TAB PO SCH (08:19)
[2017-07-03] MEDS: DOCUSATE SODIUM 50 MG/SENNA 8.6 MG TAB PO SCH ×2 (08:19→22:04)
[2017-07-03] MEDS: LACTULOSE SYRUP 20 GM/30 ML CUP PO SCH ×2 (08:19→22:06)
[2017-07-03] MEDS: PANTOPRAZOLE SOD 20 MG DELAYED RELEASE TAB PO SCH (08:19)
[2017-07-03] MEDS: POLYETHYLENE GLYCOL 17 GM PKG PO SCH (08:19)
[2017-07-03] MEDS: SODIUM CHLORIDE 0.9% FLUSH 10 ML FLUSH SCH ×2 (08:24→22:05)
--- NOTE | 2017-07-03 11:01 | PD.VS.PN ---
Subjective POD #: 6 Procedure(s): L C-SC, TEVAR Subjective/Hospital Course R groin swollen, mildly tender otherwise doing well Neuro intact Objective Vitals/I&O Date Time Temp Pulse Resp B/P Pulse Ox O2 Delivery O2 Flow Rate FiO2 07/03/17 07:35 97.7 73 16 151/89 95 07/03/17 06:00 73 07/03/17 05:00 75 07/03/17 04:00 98.1 77 20 155/95 96 07/03/17 04:00 76 07/03/17 03:00 74 07/03/17 02:00 76 07/03/17 01:00 75 07/03/17 00:00 76 07/02/17 23:45 97.5 76 20 140/77 95 07/02/17 23:00 75 07/02/17 22:00 72 07/02/17 21:00 76 07/02/17 20:00 99.0 76 18 154/87 96 07/02/17 20:00 96 Room Air 07/02/17 20:00 70 07/02/17 19:00 69 07/02/17 18:12 72 07/02/17 17:04 71 07/02/17 16:05 69 07/02/17 15:47 98.0 76 18 136/77 96 07/02/17 15:47 72 07/02/17 15:47 96 Room Air 07/02/17 14:19 77 07/02/17 13:22 72 07/02/17 12:05 78 07/02/17 11:25 98.0 79 18 146/85 97 07/02/17 11:25 76 07/02/17 11:25 97 Room Air 07/03/17 07/03/17 07/03/17 07:00 15:00 23:00 Intake Total 840 ml Output Total 575 ml Balance 265 ml Exam: R groin edematous L neck incision c/d/i Laboratory Laboratory Tests Test 07/03/17 06:00 White Blood Count 8.7 Red Blood Count 3.29 Hemoglobin 10.6 Hematocrit 31.5 Mean Corpuscular Volume 95.8 Mean Corpuscular Hemoglobin 32.2 Mean Corpuscular Hemoglobin 33.7 Concent Red Cell Distribution Width 12.5 Platelet Count 202 Mean Platelet Volume 9.4 Sodium Level 137 Potassium Level 3.8 Chloride Level 103 Carbon Dioxide Level 24.5 Anion Gap 10 Blood Urea Nitrogen 23 Creatinine 1.30 Estimat Glomerular Filtration 57 Rate Random Glucose 115 Calcium Level 8.3 Phosphorus Level 3.3 Magnesium Level 2.2 Assessment and Plan Assessment: (1) Aortic dissection Status: Acute Plan POD#6 s/p L C-SC/TEVAR for acute aneurysmal degeneration of aTBAD Neuro intact BP better controlled - goal SBP 120-140 f/u ultrasound R groin PT/OOB d/c planning will arrange f/u in my clinic in 2-3 weeks with CTA Problem Qualifiers (1) Aortic dissection: Qualified Code: I71.03 - Dissection of thoracoabdominal aorta Gregorio Dixon MD Jul 03, 2017 11:01
--- NOTE | 2017-07-03 11:14 | RADRPT ---
EXAM DATE/TIME: 07/03/2017 10:08 [facility] COMPARISON: No previous studies available for comparison. INDICATIONS : Possible pseudoaneurysm post procedure. MEDICAL HISTORY : Hypertension. Paresthesia. Weakness. Gait problems. Alcohol use. Tobacco use. SURGICAL HISTORY : TEAVR. ENCOUNTER: Initial ACUITY: 1 week PAIN SCORE: 5/10 LOCATION: Right groin. AREA EVALUATED: Right groin. FINDINGS: 8 mm pseudoaneurysm right groin the very small neck. This may be residual from hematoma. This can e asily be followed. Minimal nonocclusive thrombus greater saphenous vein. CONCLUSION: 8 mm apparent pseudoaneurysm associated with small hematoma. This can easily be followed. Jaya Armendariz MD FACR on July 03, 2017 at 11:11 Board Certified Radiologist. This report was verified electronically.
--- NOTE | 2017-07-03 11:17 | HHI.PR ---
Subjective Remarks verifying specialist Note: 56 year old male presented with complaints of right upper extremity weakness and bilateral lower extremity weakness on 06/21/17. The patient reported a history of lying in bed awake when he had onset of chest pressure and back pain. He reports that the pain felt like an expanding sensation in his chest and back. Then he got up and noticed having tingling in bilateral upper extremities with weakness in the right upper extremity and bilateral lower extremities. Upon arrival to ED, the patient was noted to have paresis of the right upper extremity and numbness to bilateral lower extremities with paralysis of bilateral lower extremities. In the ED a CT of aorta diagnosed type B dissection, with aneurysm degeneration and extension into the abdominal aorta. Today the patient underwent TEVAR left subclavian approach. CCM was consulted. 06/28: Overnight the patient became extremely hypertensive with a systolic blood pressure in the 200s, at which point in time the patient also became confused. The patient received IV antihypertensive medications, and was placed on Precedex infusion with resolution of symptomatology. The patient currently alert and oriented, normotensive. 06/29: MAXIMUM TEMPERATURE 100.1. Currently 99.3. +2 L overnight. Remains on Cardene drip at 5 mg an hour for hypertension. No longer agitated/confused. No bowel movement. 06/30: Restarted on Cleviprex due to hypertension. Clonidine on hold, will resume. HR in low 100's with frequent PVC. No BM Hospitalist Notes: 07/02: I have been asked to see this pleasant patient starting Today, as I know he was diagnosed with Type B Aortic Dissection. Status post TEVAR Thoracic Endovascular Aortic Repair. 07/03: Seen in his bedroom discussed with nurse Miss Mcleod patient at this time working with Physical Therapy for recommendations at discharge, he has right inguinal edema asked for Ultrasound by Vascular greenhouse specialist. found 8 cm pseudoaneurysm associated with Hematoma. No nausea, vomit or diarrhea. Objective Vital Signs Date Time Temp Pulse Resp B/P Pulse Ox O2 Delivery O2 Flow Rate FiO2 07/03/17 07:35 97.7 73 16 151/89 95 07/03/17 06:00 73 07/03/17 05:00 75 07/03/17 04:00 98.1 77 20 155/95 96 07/03/17 04:00 76 07/03/17 03:00 74 07/03/17 02:00 76 07/03/17 01:00 75 07/03/17 00:00 76 07/02/17 23:45 97.5 76 20 140/77 95 07/02/17 23:00 75 07/02/17 22:00 72 07/02/17 21:00 76 07/02/17 20:00 99.0 76 18 154/87 96 07/02/17 20:00 96 Room Air 07/02/17 20:00 70 07/02/17 19:00 69 07/02/17 18:12 72 07/02/17 17:04 71 07/02/17 16:05 69 07/02/17 15:47 98.0 76 18 136/77 96 07/02/17 15:47 72 07/02/17 15:47 96 Room Air 07/02/17 14:19 77 07/02/17 13:22 72 07/02/17 12:05 78 07/02/17 11:25 98.0 79 18 146/85 97 07/02/17 11:25 76 07/02/17 11:25 97 Room Air I/O 07/02/17 07/02/17 07/02/17 07/03/17 07/03/17 07/03/17 07:00 15:00 23:00 07:00 15:00 23:00 Intake Total 720 ml 600 ml 840 ml Output Total 375 ml 800 ml 575 ml Balance 345 ml -200 ml 265 ml Intake Oral 720 ml 600 ml 840 ml IV Total 0 ml 0 ml Output Urine Total 375 ml 800 ml 575 ml # Bowel Movements 0 0 0 Result Diagram: 07/03/17 0600 07/03/17 0600 Imaging Last Impressions Renal Ultrasound 07/02/17 0000 Signed Impressions: Service Date/Time: Sunday, July 02, 2017 17:11 - CONCLUSION: Bilateral mild renal cortical hyperechogenicity suggesting medical renal disease. No evidence of hydronephrosis. Bilateral renal cysts. Madhu Agustin MD Chest X-Ray 06/29/17 0007 Signed Impressions: Service Date/Time: June 00:32 - CONCLUSION: No acute disease. Hernandez Ramires MD Lumbar Puncture Fluoroscopy 06/25/17 0000 Signed Impressions: Service Date/Time: Monday, June 26, 2017 16:07 - CONCLUSION: Uncomplicated lumbar drain placement as above. Damian Taylor MD Aorta CTA 06/25/17 0000 Signed Impressions: Service Date/Time: Sunday, June 25, 2017 08:10 - CONCLUSION: 1. There is a type B aortic dissection that begins just distal to the origin of the left subclavian artery and extends inferiorly into the abdominal aorta and into the proximal right common iliac artery. It questionably also extends into the left renal artery. There is normal perfusion of all of the solid organs in the abdomen and pelvis and major aortic branches. 2. However, since the examination from 4 days ago the descending thoracic aorta has increased in size. For example at a similar level it currently measures 4.1 x 3.9 cm compared to 3.9 x 3.7 cm previously. Additionally, the aortic wall appears irregular at the distal arch and there is mild stranding around the aortic arch and descending aorta that was not present previously. There is a new small simple appearing left pleural effusion. 3. 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 The above changes concerning the aortic dissection were discussed with Dr. Dixon. Sanket Warner MD Thoracic Spine MRI 06/22/17 0000 Signed Impressions: Service Date/Time: June 08:48 - CONCLUSION: 1. Mild to moderate degenerative disc disease. No acute findings. No cord impingement or direct nerve root compression. Yamil Marks MD Cervical Spine MRI 06/22/17 0000 Signed Impressions: Service Date/Time: June 08:48 - CONCLUSION: 1. Moderate degenerative disc disease with slight reversal of normal cervical lordosis. 2. Osteophytes and mild disc protrusions at C4-5-6-7 resulting in mild AP canal stenosis and mild flattening of the anterior surface of the cord. No cord signal abnormality. Yamil Marks MD Head CT 06/21/17 0000 Signed Impressions: Service Date/Time: Wednesday, June 21, 2017 02:18 - CONCLUSION: Unremarkable exam. These findings are called to Dr. Murillo at 1431 hrs. Syd Segura MD Procedures 06/27/17 Thoracic Endovascular Aortic Repair Other Results Laboratory Tests Test 06/27/17 06/29/17 06/30/17 07/01/17 08:15 04:41 09:59 07:55 Blood Type O POSITIVE Antibody Screen NEGATIVE Crossmatch Leukocyte-Reduced Red Blood Cells Blood Bank Comment Prothrombin Time 12.9 SEC Prothromb Time International 1.2 RATIO Ratio Total Bilirubin 0.6 MG/DL Aspartate Amino Transf 20 U/L (AST/SGOT) Alanine Aminotransferase 15 U/L (ALT/SGPT) Alkaline Phosphatase 100 U/L Total Protein 6.5 GM/DL Albumin 2.1 GM/DL Neutrophils (%) (Auto) 81.4 % Lymphocytes (%) (Auto) 6.4 % Monocytes (%) (Auto) 11.3 % Eosinophils (%) (Auto) 0.8 % Basophils (%) (Auto) 0.1 % Neutrophils # (Auto) 9.1 TH/MM3 Lymphocytes # (Auto) 0.7 TH/MM3 Monocytes # (Auto) 1.3 TH/MM3 Eosinophils # (Auto) 0.1 TH/MM3 Basophils # (Auto) 0.0 TH/MM3 CBC Comment DIFF FINAL Differential Comment Test 07/03/17 06:00 White Blood Count 8.7 TH/MM3 Red Blood Count 3.29 MIL/MM3 Hemoglobin 10.6 GM/DL Hematocrit 31.5 % Mean Corpuscular Volume 95.8 FL Mean Corpuscular Hemoglobin 32.2 PG Mean Corpuscular Hemoglobin 33.7 % Concent Red Cell Distribution Width 12.5 % Platelet Count 202 TH/MM3 Mean Platelet Volume 9.4 FL Sodium Level 137 MEQ/L Potassium Level 3.8 MEQ/L Chloride Level 103 MEQ/L Carbon Dioxide Level 24.5 MEQ/L Anion Gap 10 MEQ/L Blood Urea Nitrogen 23 MG/DL Creatinine 1.30 MG/DL Estimat Glomerular Filtration 57 ML/MIN Rate Random Glucose 115 MG/DL Calcium Level 8.3 MG/DL Phosphorus Level 3.3 MG/DL Magnesium Level 2.2 MG/DL Objective Remarks GENERAL: No acute distress. SKIN: Warm and dry. Perfused with no rash HEAD: Normocephalic. NECK: Supple, trachea midline. No JVD. CARDIOVASCULAR: RRR. S1, S2. No S4 without murmur. Left subclavian surgical site with edema and erythema, clean surgical wound. RESPIRATORY: Decreased breath sounds bilateral, no wheezing, or crackles. GASTROINTESTINAL: Abdomen soft, non-tender, nondistended. BS active. MUSCULOSKELETAL: Well perfused legs. Right inguinal area with edema and ecchymosis. NEURO EXAM: Lumbar drain in situ,clear CSF no heme noted. Movement of extremities 4 , no focal deficits Medications and IVs Current Medications Medications (Trade) Dose Ordered Sig/Rios Route Start Time Stop Time Status Last Admin (NS Flush) 2 ml UNSCH PRN .XX 06/21/17 04:15 06/24/17 01:40 (NS Flush) 2 ml BID .XX 06/21/17 09:00 07/03/17 08:24 (Tylenol) 650 mg Q6H PRN PO 06/21/17 04:15 06/27/17 17:35 (Ativan Inj) 1 mg Q1H PRN IV 06/21/17 04:15 (Zofran Inj) 4 mg Q6H PRN IV 06/21/17 04:15 06/21/17 14:52 (Ambien) 5 mg HS PRN PO 06/21/17 04:15 06/25/17 20:22 Miscellaneous Information 1 Q361D XX 06/21/17 04:15 06/21/17 04:15 (Chlorhexidine 2% Cloth) Taper DAILY@04 TOP 06/22/17 04:00 06/18/18 03:59 06/30/17 04:00 (Chlorhexidine 2% Cloth) 3 pack UNSCH PRN TOP 06/21/17 04:15 (Yanet-Colace) 1 tab BID PO 06/21/17 09:00 07/03/17 08:19 (Milk Of Magnesia Liq) 30 ml Q12H PRN PO 06/21/17 04:15 07/03/17 05:13 (Dulcolax Supp) 10 mg DAILY PRN RECTAL 06/21/17 04:15 (Norvasc) 10 mg DAILY PO 06/21/17 09:00 07/03/17 08:19 (Lipitor) 40 mg DAILY PO 06/27/17 09:00 07/03/17 08:19 (Protonix) 20 mg DAILY PO 06/27/17 09:00 07/03/17 08:19 (D50w (Vial) Inj) 50 ml UNSCH PRN IV 06/27/17 13:15 (Glucagon Inj) 1 mg UNSCH PRN OTHER 06/27/17 13:15 Hydromorphone HCl 1 mg 1 mg Q4H PRN IV PUSH 06/27/17 18:45 06/29/17 05:51 (Narcan Inj/D5W Inj) 250 ml @ 0 mls/hr TITRATE IV 06/27/17 21:45 06/28/17 00:33 (Apresoline Inj) 10 mg Q2H PRN IV 06/28/17 04:15 07/01/17 06:33 Labetalol HCl 10 mg 10 mg Q1HR PRN IV PUSH 06/28/17 05:00 06/30/17 03:12 (Cleviprex Inj) 50 ml @ 0 mls/hr TITRATE IV 06/29/17 08:15 06/30/17 08:58 (Miralax) 17 gm DAILY PO 06/29/17 09:00 07/03/17 08:19 (Heparin Inj) 5,000 units Q8HR SQ 06/29/17 22:00 07/03/17 05:09 ([place] 5-325 Mg) 1 tab Q6H PRN PO 06/29/17 12:15 07/03/17 04:05 ([place] 5-325 Mg) 2 tab Q6H PRN PO 06/29/17 12:15 (Lactulose Liq) 30 ml Q12H PO 06/30/17 09:00 07/03/17 08:19 (Catapres) 0.2 mg Q8HR PO 07/01/17 07:00 07/03/17 05:08 (Trandate) 200 mg Q8HR PO 07/01/17 14:00 07/03/17 05:09 A/P Assessment and Plan 1. Acute Delirium Resolved on Acetaminophen and Hydromorphone 2. 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 Hypertension Narcan 1 mcg/Kg/Hr management per surgery maintain systolic blood pressure 140-160 currently on clevidipine gtt. continue Labetalol 200 mg every 8 hours, Norvasc 10 mg daily for hypertension Clonidine 0.2 mg q 8 hours, Atorvastatin 40 mg for Hyperlipidemia, Narcan drip at 1 mcg per Kilogram for Spinal Cord ischemia prevention. Discontinued by Neurosurgery. Lumbar drain removed 06/29 4. Acute Respiratory Insufficiency Improved IV fluids discontinued 5. Acute Kidney Injury, Adkins Cath, Monitor Electrolytes and Output 6. Postoperative antibiotics with Cefazolin was 4 days stopped 06/29 per Vascular Surgery, Leukocytosis Improved. 7. Pseudoaneurysm 8 cms associated with Hematoma on the right inguinal area. Vascular surgery following Working at this time with Physical Therapy Discussed with Patient, PT and nurse Miss Mcleod in the room. Continue Heart Healthy diet GI prophylaxis with Pantoprazole DVT prophylaxis SCDs and Heparin. Discharge Planning Once cleared by specialists. Phu Paulino MD Jul 03, 2017 11:17
[2017-07-03] MEDS ORDERED: POTASSIUM CHLORIDE 20 MEQ CONTROLLED RELEASE TAB PO ONE (12:00)
[2017-07-04] VITALS (30 sets, daily range): BP systolic 122–158; BP diastolic 70–92; PULSE 62–78; RESP 16–20; TEMP 97.4–99.2; O2SAT 94–97
[2017-07-04] MEDS: CHLORHEXIDINE GLUCONATE 2 % 1 PACK (2 CLOTHS) TOP SCH (04:00)
[2017-07-04] MEDS: LABETALOL HCL 200 MG TAB PO SCH ×3 (06:06→21:18)
[2017-07-04] MEDS: INSULIN ASPART SUPPLEMENTAL SCALE SQ SCH ×4 (06:06→21:00)
[2017-07-04] MEDS: cloNIDine HCL 0.1 MG TAB PO SCH ×3 (06:06→21:19)
[2017-07-04] MEDS: HEPARIN SODIUM - SQ 10,000 UNITS/ML VIAL SQ SCH ×3 (06:06→21:20)
--- NOTE | 2017-07-04 08:16 | HHI.PR ---
Subjective Remarks speech and language specialist Note: 56 year old male presented with complaints of right upper extremity weakness and bilateral lower extremity weakness on 06/21/17. The patient reported a history of lying in bed awake when he had onset of chest pressure and back pain. He reports that the pain felt like an expanding sensation in his chest and back. Then he got up and noticed having tingling in bilateral upper extremities with weakness in the right upper extremity and bilateral lower extremities. Upon arrival to ED, the patient was noted to have paresis of the right upper extremity and numbness to bilateral lower extremities with paralysis of bilateral lower extremities. In the ED a CT of aorta diagnosed type B dissection, with aneurysm degeneration and extension into the abdominal aorta. Today the patient underwent TEVAR left subclavian approach. [facility] was consulted. 06/28: Overnight the patient became extremely hypertensive with a systolic blood pressure in the 200s, at which point in time the patient also became confused. The patient received IV antihypertensive medications, and was placed on Precedex infusion with resolution of symptomatology. The patient currently alert and oriented, normotensive. 06/29: MAXIMUM TEMPERATURE 100.1. Currently 99.3. +2 L overnight. Remains on Cardene drip at 5 mg an hour for hypertension. No longer agitated/confused. No bowel movement. 06/30: Restarted on Cleviprex due to hypertension. Clonidine on hold, will resume. HR in low 100's with frequent PVC. No BM Hospitalist Notes: 07/02: I have been asked to see this pleasant patient starting Today, as I know he was diagnosed with Type B Aortic Dissection. Status post TEVAR Thoracic Endovascular Aortic Repair. 07/03: Seen in his bedroom discussed with nurse Miss Mcleod patient at this time working with Physical Therapy for recommendations at discharge, he has right inguinal edema asked for Ultrasound by Vascular security management specialist. found 8 cm pseudoaneurysm associated with Hematoma. 07/04: Stable in his bedroom, seen in the presence of Cardiothoracic ELECTRICIAN THIRD Miss Candi Mancini, no further management for his Pseudoaneurysm planned, the patient stable working with Physical Therapy, no nausea, vomit or diarrhea. Objective Vital Signs Date Time Temp Pulse Resp B/P Pulse Ox O2 Delivery O2 Flow Rate FiO2 07/04/17 06:00 78 07/04/17 05:00 76 07/04/17 04:00 99.0 77 20 158/92 95 07/04/17 04:00 77 07/04/17 03:00 70 07/04/17 02:00 70 07/04/17 01:00 70 07/04/17 00:00 72 07/03/17 23:30 98.5 73 16 130/77 98 07/03/17 23:00 72 07/03/17 22:00 76 07/03/17 21:00 76 07/03/17 20:00 68 07/03/17 20:00 98.9 74 20 148/84 94 07/03/17 19:00 70 07/03/17 18:14 73 07/03/17 17:00 74 07/03/17 16:00 72 07/03/17 15:39 98.7 73 16 147/85 94 07/03/17 15:00 75 07/03/17 14:00 76 07/03/17 13:00 78 07/03/17 12:00 84 07/03/17 11:45 98.9 74 18 151/89 92 07/03/17 11:00 78 07/03/17 10:00 78 07/03/17 09:00 74 I/O 07/03/17 07/03/17 07/03/17 07/04/17 07/04/17 07/04/17 07:00 15:00 23:00 07:00 15:00 23:00 Intake Total 840 ml 1000 ml 240 ml Output Total 575 ml 1025 ml 650 ml Balance 265 ml -25 ml -410 ml Intake Oral 840 ml 1000 ml 240 ml IV Total 0 ml 0 ml Output Urine Total 575 ml 1025 ml 650 ml # Bowel Movements 0 0 0 Result Diagram: 07/03/17 0600 07/03/17 0600 Imaging Last Impressions Lower Extremity Ultrasound 07/03/17 0000 Signed Impressions: Service Date/Time: Monday, July 03, 2017 10:08 - CONCLUSION: 8 mm apparent pseudoaneurysm associated with small hematoma. This can easily be followed. Jaya Armendariz MD FACR Renal Ultrasound 07/02/17 0000 Signed Impressions: Service Date/Time: Sunday, July 02, 2017 17:11 - CONCLUSION: Bilateral mild renal cortical hyperechogenicity suggesting medical renal disease. No evidence of hydronephrosis. Bilateral renal cysts. Madhu Agustin MD Chest X-Ray 06/29/17 0007 Signed Impressions: Service Date/Time: June 00:32 - CONCLUSION: No acute disease. Hernandez Ramires MD Lumbar Puncture Fluoroscopy 06/25/17 Signed Impressions: Service Date/Time: Monday, June 26, 2017 16:07 - CONCLUSION: Uncomplicated lumbar drain placement as above. Damian Taylor MD Aorta CTA 06/25/17 Signed Impressions: Service Date/Time: Sunday, June 25, 2017 08:10 - CONCLUSION: 1. There is a type B aortic dissection that begins just distal to the origin of the left subclavian artery and extends inferiorly into the abdominal aorta and into the proximal right common iliac artery. It questionably also extends into the left renal artery. There is normal perfusion of all of the solid organs in the abdomen and pelvis and major aortic branches. 2. However, since the examination from 4 days ago the descending thoracic aorta has increased in size. For example at a similar level it currently measures 4.1 x 3.9 cm compared to 3.9 x 3.7 cm previously. Additionally, the aortic wall appears irregular at the distal arch and there is mild stranding around the aortic arch and descending aorta that was not present previously. There is a new small simple appearing left pleural effusion. 3. 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 The above changes concerning the aortic dissection were discussed with Dr. Dixon. Sanket Warner MD Thoracic Spine MRI 06/22/17 Signed Impressions: Service Date/Time: June 08:48 - CONCLUSION: 1. Mild to moderate degenerative disc disease. No acute findings. No cord impingement or direct nerve root compression. Yamil Marks MD Cervical Spine MRI 06/22/17 Signed Impressions: Service Date/Time: June 08:48 - CONCLUSION: 1. Moderate degenerative disc disease with slight reversal of normal cervical lordosis. 2. Osteophytes and mild disc protrusions at C4-5-6-7 resulting in mild AP canal stenosis and mild flattening of the anterior surface of the cord. No cord signal abnormality. Yamil Marks MD Head CT 06/21/17 Signed Impressions: Service Date/Time: Wednesday, June 21, 2017 02:18 - CONCLUSION: Unremarkable exam. These findings are called to Dr. Murillo at 1431 hrs. Syd Segura MD Procedures 06/27/17 Thoracic Endovascular Aortic Repair Other Results Laboratory Tests Test 06/27/17 06/30/17 07/01/17 07/03/17 08:15 09:59 07:55 06:00 Blood Type O POSITIVE Antibody Screen NEGATIVE Crossmatch Leukocyte-Reduced Red Blood Cells Blood Bank Comment Total Bilirubin 0.6 MG/DL Aspartate Amino Transf 20 U/L (AST/SGOT) Alanine Aminotransferase 15 U/L (ALT/SGPT) Alkaline Phosphatase 100 U/L Total Protein 6.5 GM/DL Albumin 2.1 GM/DL Neutrophils (%) (Auto) 81.4 % Lymphocytes (%) (Auto) 6.4 % Monocytes (%) (Auto) 11.3 % Eosinophils (%) (Auto) 0.8 % Basophils (%) (Auto) 0.1 % Neutrophils # (Auto) 9.1 TH/MM3 Lymphocytes # (Auto) 0.7 TH/MM3 Monocytes # (Auto) 1.3 TH/MM3 Eosinophils # (Auto) 0.1 TH/MM3 Basophils # (Auto) 0.0 TH/MM3 CBC Comment DIFF FINAL Differential Comment White Blood Count 8.7 TH/MM3 Red Blood Count 3.29 MIL/MM3 Hemoglobin 10.6 GM/DL Hematocrit 31.5 % Mean Corpuscular Volume 95.8 FL Mean Corpuscular Hemoglobin 32.2 PG Mean Corpuscular Hemoglobin 33.7 % Concent Red Cell Distribution Width 12.5 % Platelet Count 202 TH/MM3 Mean Platelet Volume 9.4 FL Sodium Level 137 MEQ/L Potassium Level 3.8 MEQ/L Chloride Level 103 MEQ/L Carbon Dioxide Level 24.5 MEQ/L Anion Gap 10 MEQ/L Blood Urea Nitrogen 23 MG/DL Creatinine 1.30 MG/DL Estimat Glomerular Filtration 57 ML/MIN Rate Random Glucose 115 MG/DL Calcium Level 8.3 MG/DL Phosphorus Level 3.3 MG/DL Magnesium Level 2.2 MG/DL Objective Remarks GENERAL: No acute distress. SKIN: Warm and dry. Perfused with no rash HEAD: Normocephalic. NECK: Supple, trachea midline. No JVD. CARDIOVASCULAR: RRR. S1, S2. No S4 without murmur. Left subclavian surgical site with edema and erythema, clean surgical wound. RESPIRATORY: Decreased breath sounds bilateral, no wheezing, or crackles. GASTROINTESTINAL: Abdomen soft, non-tender, nondistended. BS active. MUSCULOSKELETAL: Well perfused legs. Right inguinal area with edema and ecchymosis. NEURO EXAM: Lumbar drain in situ,clear CSF no heme noted. Movement of extremities 4 , no focal deficits Medications and IVs Current Medications Medications (Trade) Dose Ordered Sig/Rios Route Start Time Stop Time Status Last Admin (NS Flush) 2 ml UNSCH PRN .XX 06/21/17 04:15 06/24/17 01:40 (NS Flush) 2 ml BID .XX 06/21/17 09:00 07/03/17 22:05 (Tylenol) 650 mg Q6H PRN PO 06/21/17 04:15 06/27/17 17:35 (Ativan Inj) 1 mg Q1H PRN IV 06/21/17 04:15 (Zofran Inj) 4 mg Q6H PRN IV 06/21/17 04:15 06/21/17 14:52 (Ambien) 5 mg HS PRN PO 06/21/17 04:15 06/25/17 20:22 Miscellaneous Information 1 Q361D XX 06/21/17 04:15 06/21/17 04:15 (Chlorhexidine 2% Cloth) Taper DAILY@04 TOP 06/22/17 04:00 06/18/18 03:59 06/30/17 04:00 (Chlorhexidine 2% Cloth) 3 pack UNSCH PRN TOP 06/21/17 04:15 (Yanet-Colace) 1 tab BID PO 06/21/17 09:00 07/03/17 22:04 (Milk Of Magnesia Liq) 30 ml Q12H PRN PO 06/21/17 04:15 07/03/17 05:13 (Dulcolax Supp) 10 mg DAILY PRN RECTAL 06/21/17 04:15 (Norvasc) 10 mg DAILY PO 06/21/17 09:00 07/03/17 08:19 (Lipitor) 40 mg DAILY PO 06/27/17 09:00 07/03/17 08:19 (Protonix) 20 mg DAILY PO 06/27/17 09:00 07/03/17 08:19 (D50w (Vial) Inj) 50 ml UNSCH PRN IV 06/27/17 13:15 (Glucagon Inj) 1 mg UNSCH PRN OTHER 06/27/17 13:15 Hydromorphone HCl 1 mg 1 mg Q4H PRN IV PUSH 06/27/17 18:45 06/29/17 05:51 (Narcan Inj/D5W Inj) 250 ml @ 0 mls/hr TITRATE IV 06/27/17 21:45 06/28/17 00:33 (Apresoline Inj) 10 mg Q2H PRN IV 06/28/17 04:15 07/01/17 06:33 Labetalol HCl 10 mg 10 mg Q1HR PRN IV PUSH 06/28/17 05:00 06/30/17 03:12 (Cleviprex Inj) 50 ml @ 0 mls/hr TITRATE IV 06/29/17 08:15 06/30/17 08:58 (Miralax) 17 gm DAILY PO 06/29/17 09:00 07/03/17 08:19 (Heparin Inj) 5,000 units Q8HR SQ 06/29/17 22:00 07/04/17 06:06 ([place] 5-325 Mg) 1 tab Q6H PRN PO 06/29/17 12:15 07/03/17 22:07 ([place] 5-325 Mg) 2 tab Q6H PRN PO 06/29/17 12:15 (Lactulose Liq) 30 ml Q12H PO 06/30/17 09:00 07/03/17 22:06 (Catapres) 0.2 mg Q8HR PO 07/01/17 07:00 07/04/17 06:06 (Trandate) 200 mg Q8HR PO 07/01/17 14:00 07/04/17 06:06 A/P Assessment and Plan 1. Acute Delirium Resolved on Acetaminophen and Hydromorphone 2. 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 Hypertension Narcan 1 mcg/Kg/Hr management per surgery maintain systolic blood pressure 140-160 currently on clevidipine gtt. continue Labetalol 200 mg every 8 hours, Norvasc 10 mg daily for hypertension Clonidine 0.2 mg q 8 hours, Atorvastatin 40 mg for Hyperlipidemia, Narcan drip at 1 mcg per Kilogram for Spinal Cord ischemia prevention. Discontinued by Neurosurgery. Lumbar drain removed 06/29 4. Acute Respiratory Insufficiency Improved IV fluids discontinued 5. Acute Kidney Injury, Improved. 6. Postoperative antibiotics with Cefazolin was 4 days stopped 06/29 per Vascular Surgery, Leukocytosis Improved. 7. Pseudoaneurysm 8 cms associated with Hematoma on the right inguinal area. Vascular surgery following, no further surgical procedure planned. Working at this time with Physical Therapy Discussed with Patient, PT and nurse Miss Mcleod in the room. Discussed with Cardiothoracic Surgery [employer]LECT[employer] Miss Candi Mancini Continue Heart Healthy diet GI prophylaxis with Pantoprazole DVT prophylaxis SCDs and Heparin. Discharge Planning Once cleared by specialists. Phu Paulino MD Jul 04, 2017 08:16
[2017-07-04] MEDS: DOCUSATE SODIUM 50 MG/SENNA 8.6 MG TAB PO SCH ×2 (08:58→21:19)
[2017-07-04] MEDS: POLYETHYLENE GLYCOL 17 GM PKG PO SCH (08:58)
[2017-07-04] MEDS: PANTOPRAZOLE SOD 20 MG DELAYED RELEASE TAB PO SCH (08:58)
[2017-07-04] MEDS: LACTULOSE SYRUP 20 GM/30 ML CUP PO SCH ×2 (08:59→21:20)
[2017-07-04] MEDS: ATORVASTATIN 40 MG TAB PO SCH (08:59)
[2017-07-04] MEDS: SODIUM CHLORIDE 0.9% FLUSH 10 ML FLUSH SCH ×2 (09:00→21:00)
--- NOTE | 2017-07-04 09:58 | PD.VS.PN ---
Subjective POD #: 7 Procedure(s): L C-SC, TEVAR Subjective/Hospital Course R groin with improved swelling Neuro intact Left neck with swelling present PT at the BS Objective Vitals/I&O Date Time Temp Pulse Resp B/P Pulse Ox O2 Delivery O2 Flow Rate FiO2 07/04/17 06:00 78 07/04/17 05:00 76 07/04/17 04:00 99.0 77 20 158/92 95 07/04/17 04:00 77 07/04/17 03:00 70 07/04/17 02:00 70 07/04/17 01:00 70 07/04/17 00:00 72 07/03/17 23:30 98.5 73 16 130/77 98 07/03/17 23:00 72 07/03/17 22:00 76 07/03/17 21:00 76 07/03/17 20:00 68 07/03/17 20:00 98.9 74 20 148/84 94 07/03/17 19:00 70 07/03/17 18:14 73 07/03/17 17:00 74 07/03/17 16:00 72 07/03/17 15:39 98.7 73 16 147/85 94 07/03/17 15:00 75 07/03/17 14:00 76 07/03/17 13:00 78 07/03/17 12:00 84 07/03/17 11:45 98.9 74 18 151/89 92 07/03/17 11:00 78 07/03/17 10:00 78 07/04/17 07/04/17 07/04/17 07:00 15:00 23:00 Intake Total 240 ml Output Total 650 ml Balance -410 ml Exam: GENERAL: A&OX3,NAD,GCS15 SKIN: Warm and dry/ LE warm w/ motor intact/ Right groin w/ improved swelling/ left side of neck tender with swelling CARDIOVASCULAR: +S1,S2 RESPIRATORY: BS CTA GASTROINTESTINAL: S/NT R/L DP palpable Pt denies abdominal/new onset back pain Assessment and Plan Assessment: (1) Aortic dissection Status: Acute Plan POD#7 s/p L C-SC/TEVAR for acute aneurysmal degeneration of aTBAD Neuro intact BP better controlled - goal SBP 120-140 Plan Reviewed U/S- No surgical intervention needed Pt with improved swelling Continue with PT/OOB D/c planning Will arrange OP f/u in 2-3 weeks with CTA Candi MEDLEY [facility] Problem Qualifiers (1) Aortic dissection: Qualified Code: I71.03 - Dissection of thoracoabdominal aorta Candi Mancini Jul 04, 2017 09:58
[2017-07-04] MEDS: ACETAMINOPHEN 325 MG TAB PO PRN (14:49)
[2017-07-04] MEDS: ACETAMINOPHEN/HYDROcodone 325 MG/5 MG TAB PO PRN (21:19)
[2017-07-05] VITALS (13 sets, daily range): BP systolic 124–145; BP diastolic 75–88; PULSE 70–84; RESP 18; TEMP 98.4–98.8; O2SAT 95–97
[2017-07-05] MEDS: CHLORHEXIDINE GLUCONATE 2 % 1 PACK (2 CLOTHS) TOP SCH (04:00)
[2017-07-05] MEDS: ACETAMINOPHEN/HYDROcodone 325 MG/5 MG TAB PO PRN ×2 (04:34→11:41)
[2017-07-05] MEDS: cloNIDine HCL 0.1 MG TAB PO SCH (05:48)
[2017-07-05] MEDS: LABETALOL HCL 200 MG TAB PO SCH (05:48)
[2017-07-05] MEDS: HEPARIN SODIUM - SQ 10,000 UNITS/ML VIAL SQ SCH (05:48)
[2017-07-05] MEDS: INSULIN ASPART SUPPLEMENTAL SCALE SQ SCH ×2 (06:16→10:27)
[2017-07-05] MEDS: LACTULOSE SYRUP 20 GM/30 ML CUP PO SCH (08:14)
[2017-07-05] MEDS: POLYETHYLENE GLYCOL 17 GM PKG PO SCH (08:14)
[2017-07-05] MEDS: DOCUSATE SODIUM 50 MG/SENNA 8.6 MG TAB PO SCH (08:14)
[2017-07-05] MEDS: PANTOPRAZOLE SOD 20 MG DELAYED RELEASE TAB PO SCH (08:14)
[2017-07-05] MEDS: ATORVASTATIN 40 MG TAB PO SCH (08:15)
[2017-07-05] MEDS: SODIUM CHLORIDE 0.9% FLUSH 10 ML FLUSH SCH (08:17)
--- NOTE | 2017-07-05 09:09 | PD.VS.PN ---
Subjective POD #: 8 Procedure(s): L C-SC, TEVAR Subjective/Hospital Course R groin with improved swelling Neuro intact Left neck with improved swelling present Objective Vitals/I&O Date Time Temp Pulse Resp B/P Pulse Ox O2 Delivery O2 Flow Rate FiO2 07/05/17 05:46 18 07/05/17 05:23 72 07/05/17 04:00 74 07/05/17 03:00 98.4 76 18 145/84 97 07/05/17 03:00 77 07/05/17 02:00 72 07/05/17 01:00 74 07/05/17 00:00 84 07/04/17 23:45 98.5 78 18 137/79 94 07/04/17 23:00 77 07/04/17 22:00 70 07/04/17 21:00 70 07/04/17 20:00 66 07/04/17 19:45 97.4 62 18 138/79 95 07/04/17 19:00 67 07/04/17 18:20 67 07/04/17 17:00 64 07/04/17 16:00 64 07/04/17 15:10 99.2 74 20 122/70 97 07/04/17 15:00 74 07/04/17 14:00 78 07/04/17 13:57 150/82 07/04/17 13:00 76 07/04/17 12:00 74 07/04/17 11:07 98.5 75 16 144/81 95 07/04/17 11:00 76 07/04/17 10:00 77 07/05/17 07/05/17 07/05/17 07:00 15:00 23:00 Intake Total 240 ml Output Total 875 ml Balance -635 ml Exam: GENERAL: A&OX3,NAD,GCS15 SKIN: Warm and dry/ LE warm w/ motor intact/ Right groin w/ improved swelling/ left side of neck with improved swelling CARDIOVASCULAR: +S1,S2 RESPIRATORY: BS CTA GASTROINTESTINAL: S/NT R/L DP palpable Pt denies abdominal/new onset back pain Assessment and Plan Assessment: (1) Aortic dissection Status: Acute Plan POD#8 s/p L C-SC/TEVAR for acute aneurysmal degeneration of aTBAD Neuro intact BP better controlled - goal SBP 120-140 Plan Pt with improved swelling to right groin/Left neck Arrange OP f/u in 2-3 weeks with CTA post TEVAR c/a/p Pt clear for d/c from a vascular standpoint Candi MEDLEY [facility] [phone] Problem Qualifiers (1) Aortic dissection: Qualified Code: I71.03 - Dissection of thoracoabdominal aorta Candi Mancini Jul 05, 2017 09:09
--- NOTE | 2017-07-05 10:58 | HHI.FF ---
Face to Face Verification Diagnosis: (1) Aortic dissection (2) Dissecting aneurysm of thoracic aorta, Edwardo type B Physical Therapy Order: Evaluate and Treat, Improve ambulation, Strength and gait training Home Health Nursing Order: Medical education Signs/symptoms of disease process Oxygen administration education Nursing assessment with vital signs I have seen patient Yamil Mckeon on 07/05/17. My clinical findings support the need for the requested home health care services because: Ltd mobility - disease progression Deconditioned w/ increased weakness I certify that my clinical findings support that this patient is homebound because: Unsafe to leave home unassisted Phu Paulino MD Jul 05, 2017 10:58
--- NOTE | 2017-07-05 11:20 | HHI.PR ---
Subjective Remarks self pay specialist Note: 56 year old male presented with complaints of right upper extremity weakness and bilateral lower extremity weakness on 06/21/17. The patient reported a history of lying in bed awake when he had onset of chest pressure and back pain. He reports that the pain felt like an expanding sensation in his chest and back. Then he got up and noticed having tingling in bilateral upper extremities with weakness in the right upper extremity and bilateral lower extremities. Upon arrival to ED, the patient was noted to have paresis of the right upper extremity and numbness to bilateral lower extremities with paralysis of bilateral lower extremities. In the ED a CT of aorta diagnosed type B dissection, with aneurysm degeneration and extension into the abdominal aorta. Today the patient underwent TEVAR left subclavian approach. CCM was consulted. 06/28: Overnight the patient became extremely hypertensive with a systolic blood pressure in the 200s, at which point in time the patient also became confused. The patient received IV antihypertensive medications, and was placed on Precedex infusion with resolution of symptomatology. The patient currently alert and oriented, normotensive. 06/29: MAXIMUM TEMPERATURE 100.1. Currently 99.3. +2 L overnight. Remains on Cardene drip at 5 mg an hour for hypertension. No longer agitated/confused. No bowel movement. 06/30: Restarted on Cleviprex due to hypertension. Clonidine on hold, will resume. HR in low 100's with frequent PVC. No BM Hospitalist Notes: 07/02: I have been asked to see this pleasant patient starting Today, as I know he was diagnosed with Type B Aortic Dissection. Status post TEVAR Thoracic Endovascular Aortic Repair. 07/03: Seen in his bedroom discussed with nurse Miss Mcleod patient at this time working with Physical Therapy for recommendations at discharge, he has right inguinal edema asked for Ultrasound by Vascular body specialist. found 8 cm pseudoaneurysm associated with Hematoma. 07/04: Stable in his bedroom, seen in the presence of Cardiothoracic LINE RUNNER Miss Candi Mancini, no further management for his Pseudoaneurysm planned, the patient stable working with Physical Therapy. 07/05: Seen in her bedroom no nausea,vomit or diarrhea, Nurse Miss Castellon present wants to go home and will go on [facility] for PT and Skilled nurse, as per Cardiothoracic Specialist Nurse Candi Live recommended to continue controlled blood pressure between 120 and 140 mm Hg. and will follow in Vascular Surgery Office in 2 to 3 weeks will arrange follow up for CTA post TEVAR. recommended to discharge Home with [facility]. Objective Vital Signs Date Time Temp Pulse Resp B/P Pulse Ox O2 Delivery O2 Flow Rate FiO2 07/05/17 10:01 70 07/05/17 09:09 70 07/05/17 08:00 70 07/05/17 07:15 73 07/05/17 07:15 98.8 74 18 143/88 95 07/05/17 05:46 18 07/05/17 05:23 72 07/05/17 04:00 74 07/05/17 03:00 98.4 76 18 145/84 97 07/05/17 03:00 77 07/05/17 02:00 72 07/05/17 01:00 74 07/05/17 00:00 84 07/04/17 23:45 98.5 78 18 137/79 94 07/04/17 23:00 77 07/04/17 22:00 70 07/04/17 21:00 70 07/04/17 20:00 66 07/04/17 19:45 97.4 62 18 138/79 95 07/04/17 19:00 67 07/04/17 18:20 67 07/04/17 17:00 64 07/04/17 16:00 64 07/04/17 15:10 99.2 74 20 122/70 97 07/04/17 15:00 74 07/04/17 14:00 78 07/04/17 13:57 150/82 07/04/17 13:00 76 07/04/17 12:00 74 I/O 07/04/17 07/04/17 07/04/17 07/05/17 07/05/17 07/05/17 06:59 14:59 22:59 06:59 14:59 22:59 Intake Total 240 ml 1100 ml 240 ml Output Total 650 ml 1075 ml 875 ml Balance -410 ml 25 ml -635 ml Intake Oral 240 ml 1100 ml 240 ml Output Urine Total 650 ml 1075 ml 875 ml # Bowel Movements 0 Result Diagram: 07/03/17 0600 07/03/17 0600 Imaging Last Impressions Lower Extremity Ultrasound 07/03/17 0000 Signed Impressions: Service Date/Time: Monday, July 03, 2017 10:08 - CONCLUSION: 8 mm apparent pseudoaneurysm associated with small hematoma. This can easily be followed. Jaya Armendariz MD FACR Renal Ultrasound 07/02/17 Signed Impressions: Service Date/Time: Sunday, July 02, 2017 17:11 - CONCLUSION: Bilateral mild renal cortical hyperechogenicity suggesting medical renal disease. No evidence of hydronephrosis. Bilateral renal cysts. Madhu Agustin MD Chest X-Ray 06/29/176 Signed Impressions: Service Date/Time: June 00:32 - CONCLUSION: No acute disease. Hernandez Ramires MD Lumbar Puncture Fluoroscopy 06/25/17 Signed Impressions: Service Date/Time: Monday, June 26, 2017 16:07 - CONCLUSION: Uncomplicated lumbar drain placement as above. Damian Taylor MD Aorta CTA 06/25/17 Signed Impressions: Service Date/Time: Sunday, June 25, 2017 08:10 - CONCLUSION: 1. There is a type B aortic dissection that begins just distal to the origin of the left subclavian artery and extends inferiorly into the abdominal aorta and into the proximal right common iliac artery. It questionably also extends into the left renal artery. There is normal perfusion of all of the solid organs in the abdomen and pelvis and major aortic branches. 2. However, since the examination from 4 days ago the descending thoracic aorta has increased in size. For example at a similar level it currently measures 4.1 x 3.9 cm compared to 3.9 x 3.7 cm previously. Additionally, the aortic wall appears irregular at the distal arch and there is mild stranding around the aortic arch and descending aorta that was not present previously. There is a new small simple appearing left pleural effusion. 3. 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 The above changes concerning the aortic dissection were discussed with Dr. Dixon. Sanket Warner MD Thoracic Spine MRI 06/22/17 Signed Impressions: Service Date/Time: June 08:48 - CONCLUSION: 1. Mild to moderate degenerative disc disease. No acute findings. No cord impingement or direct nerve root compression. Yamil Marks MD Cervical Spine MRI 8/3/17 0000 Signed Impressions: Service Date/Time: June 08:48 - CONCLUSION: 1. Moderate degenerative disc disease with slight reversal of normal cervical lordosis. 2. Osteophytes and mild disc protrusions at C4-5-6-7 resulting in mild AP canal stenosis and mild flattening of the anterior surface of the cord. No cord signal abnormality. Yamil Marks MD Head CT 06/21/17 0000 Signed Impressions: Service Date/Time: Wednesday, June 21, 2017 02:18 - CONCLUSION: Unremarkable exam. These findings are called to Dr. Murillo at 1431 hrs. Syd Segura MD Procedures 06/27/17 Thoracic Endovascular Aortic Repair Other Results Laboratory Tests Test 07/01/17 07/03/17 07:55 06:00 Neutrophils (%) (Auto) 81.4 % Lymphocytes (%) (Auto) 6.4 % Monocytes (%) (Auto) 11.3 % Eosinophils (%) (Auto) 0.8 % Basophils (%) (Auto) 0.1 % Neutrophils # (Auto) 9.1 TH/MM3 Lymphocytes # (Auto) 0.7 TH/MM3 Monocytes # (Auto) 1.3 TH/MM3 Eosinophils # (Auto) 0.1 TH/MM3 Basophils # (Auto) 0.0 TH/MM3 CBC Comment DIFF FINAL Differential Comment White Blood Count 8.7 TH/MM3 Red Blood Count 3.29 MIL/MM3 Hemoglobin 10.6 GM/DL Hematocrit 31.5 % Mean Corpuscular Volume 95.8 FL Mean Corpuscular Hemoglobin 32.2 PG Mean Corpuscular Hemoglobin 33.7 % Concent Red Cell Distribution Width 12.5 % Platelet Count 202 TH/MM3 Mean Platelet Volume 9.4 FL Sodium Level 137 MEQ/L Potassium Level 3.8 MEQ/L Chloride Level 103 MEQ/L Carbon Dioxide Level 24.5 MEQ/L Anion Gap 10 MEQ/L Blood Urea Nitrogen 23 MG/DL Creatinine 1.30 MG/DL Estimat Glomerular Filtration 57 ML/MIN Rate Random Glucose 115 MG/DL Calcium Level 8.3 MG/DL Phosphorus Level 3.3 MG/DL Magnesium Level 2.2 MG/DL Objective Remarks GENERAL: No acute distress. SKIN: Warm and dry. Perfused with no rash HEAD: Normocephalic. NECK: Supple, trachea midline. No JVD. CARDIOVASCULAR: RRR. S1, S2. No S4 without murmur. Left subclavian surgical site with edema and erythema, clean surgical wound. RESPIRATORY: Decreased breath sounds bilateral, no wheezing, or crackles. GASTROINTESTINAL: Abdomen soft, non-tender, nondistended. BS active. MUSCULOSKELETAL: Well perfused legs. Right inguinal area with edema and ecchymosis. NEURO EXAM: Lumbar drain in situ,clear CSF no heme noted. Movement of extremities 4 , no focal deficits Medications and IVs Current Medications Medications (Trade) Dose Ordered Sig/Rios Route Start Time Stop Time Status Last Admin (NS Flush) 2 ml UNSCH PRN .XX 06/21/17 04:15 06/24/17 01:40 (NS Flush) 2 ml BID .XX 06/21/17 09:00 07/05/17 08:17 (Tylenol) 650 mg Q6H PRN PO 06/21/17 04:15 07/04/17 14:49 (Ativan Inj) 1 mg Q1H PRN IV 06/21/17 04:15 (Zofran Inj) 4 mg Q6H PRN IV 06/21/17 04:15 06/21/17 14:52 (Ambien) 5 mg HS PRN PO 06/21/17 04:15 06/25/17 20:22 Miscellaneous Information 1 Q361D XX 06/21/17 04:15 06/21/17 04:15 (Chlorhexidine 2% Cloth) Taper DAILY@04 TOP 06/22/17 04:00 06/18/18 03:59 06/30/17 04:00 (Chlorhexidine 2% Cloth) 3 pack UNSCH PRN TOP 06/21/17 04:15 (Yanet-Colace) 1 tab BID PO 06/21/17 09:00 07/05/17 08:14 (Milk Of Magnesia Liq) 30 ml Q12H PRN PO 06/21/17 04:15 07/03/17 05:13 (Dulcolax Supp) 10 mg DAILY PRN RECTAL 06/21/17 04:15 (Norvasc) 10 mg DAILY PO 06/21/17 09:00 07/05/17 08:15 (Lipitor) 40 mg DAILY PO 06/27/17 09:00 07/05/17 08:15 (Protonix) 20 mg DAILY PO 06/27/17 09:00 07/05/17 08:14 (D50w (Vial) Inj) 50 ml UNSCH PRN IV 06/27/17 13:15 (Glucagon Inj) 1 mg UNSCH PRN OTHER 06/27/17 13:15 Hydromorphone HCl 1 mg 1 mg Q4H PRN IV PUSH 06/27/17 18:45 06/29/17 05:51 (Narcan Inj/D5W Inj) 250 ml @ 0 mls/hr TITRATE IV 06/27/17 21:45 06/28/17 00:33 (Apresoline Inj) 10 mg Q2H PRN IV 06/28/17 04:15 07/01/17 06:33 Labetalol HCl 10 mg 10 mg Q1HR PRN IV PUSH 06/28/17 05:00 06/30/17 03:12 (Cleviprex Inj) 50 ml @ 0 mls/hr TITRATE IV 06/29/17 08:15 06/30/17 08:58 (Miralax) 17 gm DAILY PO 06/29/17 09:00 07/05/17 08:14 (Heparin Inj) 5,000 units Q8HR SQ 06/29/17 22:00 07/05/17 05:48 (Mica 5-325 Mg) 1 tab Q6H PRN PO 06/29/17 12:15 07/05/17 04:34 (Mica 5-325 Mg) 2 tab Q6H PRN PO 06/29/17 12:15 (Lactulose Liq) 30 ml Q12H PO 06/30/17 09:00 07/05/17 08:14 (Catapres) 0.2 mg Q8HR PO 07/01/17 07:00 07/05/17 05:48 (Trandate) 200 mg Q8HR PO 07/01/17 14:00 07/05/17 05:48 A/P Assessment and Plan 1. Acute Delirium Resolved on Acetaminophen and Hydromorphone 2. 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 Hypertension Narcan 1 mcg/Kg/Hr management per surgery maintain systolic blood pressure 140-160 currently on clevidipine gtt. continue Labetalol 200 mg every 8 hours, Norvasc 10 mg daily for hypertension Clonidine 0.2 mg q 8 hours, Atorvastatin 40 mg for Hyperlipidemia, Narcan drip at 1 mcg per Kilogram for Spinal Cord ischemia prevention. Discontinued by Neurosurgery. Lumbar drain removed 06/29 4. Acute Respiratory Insufficiency Improved IV fluids discontinued 5. Acute Kidney Injury, Improved. 6. Postoperative antibiotics with Cefazolin was 4 days stopped 06/29 per Vascular Surgery, Leukocytosis Improved. 7. Pseudoaneurysm 8 cms associated with Hematoma on the right inguinal area. Vascular surgery following, no further surgical procedure planned. Working at this time with Physical Therapy Discussed with Patient, PT and nurse Miss Castellon in the room. all questions answered to the best of my abilities. As per Cardiothoracic Surgery LINE RUNNER Miss Candi Mancini okay to discharge home and follow in Vascular specialist office in 2 to 3 weeks. Continue Heart Healthy diet GI prophylaxis with Pantoprazole DVT prophylaxis SCDs and Heparin. Discharge Planning Discharge Home with [facility]. Phu Paulino MD Jul 05, 2017 11:20
[2017-07-05] MEDS ORDERED: AMLO10 PO (11:25)
[2017-07-05] MEDS ORDERED: ATOR40TA16 PO (11:25)
[2017-07-05] MEDS ORDERED: CLON.1 PO (11:25)
[2017-07-05] MEDS ORDERED: AMBI5TAB PO (11:25)
[2017-07-05] MEDS ORDERED: PANT20 PO (11:25)
[2017-07-05] MEDS ORDERED: HYDR-3516 PO (11:25)
--- NOTE | 2017-07-05 11:26 | HHI.DS ---
Discharge Summary Admission Date Jun 21, 2017 at 03:30 Discharge Date: Jul 05, 2017 Admitting Diagnosis Type B Aortic Dissection (1) Dissecting aneurysm of thoracic aorta, Edwardo type B ICD Code: I71.01 Diagnosis: Principal (2) Status post tear of anterior cruciate ligament ICD Code: Z87.828 Diagnosis: Principal (3) Uncontrolled hypertension ICD Code: I10 Diagnosis: Principal (4) Hypertension ICD Code: I10 Diagnosis: Principal Procedures TEVAR 06/27/17 Brief History - From Admission 56 year old female presents with complaints of right upper extremity weakness and bilateral lower extremity weakness. The patient reports a history of lying in bed awake when he had onset of chest pressure and back pain. He reports that the pain felt like an expanding sensation in his chest and back. Then he got up and noticed having tingling in bilateral upper extremities with weakness in the right upper extremity and bilateral lower. He says that he ended up easing himself to the ground. On ambulance services arrival the patient was noted to have paresis of the right upper extremity and numbness to bilateral lower extremities with paralysis of bilateral lower extremities. However, en route to this facility the weakness resolved and during my exam he is a equal strength in all 4 extremities. In the emergency department at the CT of aorta diagnosed type B dissection and patient is admitted to critical care unit for medical management. CBC/BMP: 07/03/17 0600 07/03/17 0600 Significant Findings Laboratory Tests Test 07/03/17 06:00 Red Blood Count 3.29 MIL/MM3 (4.50-5.90) Hemoglobin 10.6 GM/DL (13.0-17.0) Hematocrit 31.5 % (39.0-51.0) Blood Urea Nitrogen 23 MG/DL (7-18) Estimat Glomerular Filtration 57 ML/MIN (>89) Rate Random Glucose 115 MG/DL (74-106) Calcium Level 8.3 MG/DL (8.5-10.1) Imaging Last Impressions Lower Extremity Ultrasound 07/03/17 0000 Signed Impressions: Service Date/Time: Monday, July 03, 2017 10:08 - CONCLUSION: 8 mm apparent pseudoaneurysm associated with small hematoma. This can easily be followed. Jaya Armendariz MD FACR Renal Ultrasound 07/02/17 Signed Impressions: Service Date/Time: Sunday, July 02, 2017 17:11 - CONCLUSION: Bilateral mild renal cortical hyperechogenicity suggesting medical renal disease. No evidence of hydronephrosis. Bilateral renal cysts. Madhu Agustin MD Chest X-Ray 06/29/177 Signed Impressions: Service Date/Time: June 00:32 - CONCLUSION: No acute disease. Hernandez Ramires MD Lumbar Puncture Fluoroscopy 06/25/17 Signed Impressions: Service Date/Time: Monday, June 26, 2017 16:07 - CONCLUSION: Uncomplicated lumbar drain placement as above. Damian Taylor MD Aorta CTA 06/25/17 Signed Impressions: Service Date/Time: Sunday, June 25, 2017 08:10 - CONCLUSION: 1. There is a type B aortic dissection that begins just distal to the origin of the left subclavian artery and extends inferiorly into the abdominal aorta and into the proximal right common iliac artery. It questionably also extends into the left renal artery. There is normal perfusion of all of the solid organs in the abdomen and pelvis and major aortic branches. 2. However, since the examination from 4 days ago the descending thoracic aorta has increased in size. For example at a similar level it currently measures 4.1 x 3.9 cm compared to 3.9 x 3.7 cm previously. Additionally, the aortic wall appears irregular at the distal arch and there is mild stranding around the aortic arch and descending aorta that was not present previously. There is a new small simple appearing left pleural effusion. 3. 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 The above changes concerning the aortic dissection were discussed with Dr. Dixon. Sanket Warner MD Thoracic Spine MRI 06/22/17 Signed Impressions: Service Date/Time: June 08:48 - CONCLUSION: 1. Mild to moderate degenerative disc disease. No acute findings. No cord impingement or direct nerve root compression. Yamil Marks MD Cervical Spine MRI 06/22/17 Signed Impressions: Service Date/Time: June 08:48 - CONCLUSION: 1. Moderate degenerative disc disease with slight reversal of normal cervical lordosis. 2. Osteophytes and mild disc protrusions at C4-5-6-7 resulting in mild AP canal stenosis and mild flattening of the anterior surface of the cord. No cord signal abnormality. Yamil Marks MD Head CT 06/21/17 0000 Signed Impressions: Service Date/Time: Wednesday, June 21, 2017 02:18 - CONCLUSION: Unremarkable exam. These findings are called to Dr. Murillo at 1431 hrs. Syd Segura MD PE at Discharge GENERAL: No acute distress. SKIN: Warm and dry. Perfused with no rash HEAD: Normocephalic. NECK: Supple, trachea midline. No JVD. CARDIOVASCULAR: RRR. S1, S2. No S4 without murmur. Left subclavian surgical site with edema and erythema, clean surgical wound. RESPIRATORY: Decreased breath sounds bilateral, no wheezing, or crackles. GASTROINTESTINAL: Abdomen soft, non-tender, nondistended. BS active. MUSCULOSKELETAL: Well perfused legs. Right inguinal area with edema and ecchymosis. NEURO EXAM: Lumbar drain in situ,clear CSF no heme noted. Movement of extremities 4 , no focal deficits Transfer Summary 56 year old male presented with complaints of right upper extremity weakness and bilateral lower extremity weakness on 06/21/17. The patient reported a history of lying in bed awake when he had onset of chest pressure and back pain. He reports that the pain felt like an expanding sensation in his chest and back. Then he got up and noticed having tingling in bilateral upper extremities with weakness in the right upper extremity and bilateral lower extremities. Upon arrival to ED, the patient was noted to have paresis of the right upper extremity and numbness to bilateral lower extremities with paralysis of bilateral lower extremities. In the ED a CT of aorta diagnosed type B dissection, with aneurysm degeneration and extension into the abdominal aorta. Today the patient underwent TEVAR left subclavian approach. [facility] was consulted. Subjective: 06/28: Overnight the patient became extremely hypertensive with a systolic blood pressure in the 200s, at which point in time the patient also became confused. The patient received IV antihypertensive medications, and was placed on Precedex infusion with resolution of symptomatology. The patient currently alert and oriented, normotensive. 06/29: MAXIMUM TEMPERATURE 100.1. Currently 99.3. +2 L overnight. Remains on Cardene drip at 5 mg an hour for hypertension. No longer agitated/confused. No bowel movement. 06/30: Restarted on Cleviprex due to hypertension. Clonidine on hold, will resume. HR in low 100's with frequent PVC. No BM 07/01: Remains off Cleviprex, BP better controlled after restarting clonidine. Will increase clonidine dose to 0.2 mg every 8 hours. Had 1 BM. Episodes of apnea while sleeping. Probably has undiagnosed sleep apnea. Need OP work up Hospital Course youth care specialist Note: 56 year old male presented with complaints of right upper extremity weakness and bilateral lower extremity weakness on 06/21/17. The patient reported a history of lying in bed awake when he had onset of chest pressure and back pain. He reports that the pain felt like an expanding sensation in his chest and back. Then he got up and noticed having tingling in bilateral upper extremities with weakness in the right upper extremity and bilateral lower extremities. Upon arrival to ED, the patient was noted to have paresis of the right upper extremity and numbness to bilateral lower extremities with paralysis of bilateral lower extremities. In the ED a CT of aorta diagnosed type B dissection, with aneurysm degeneration and extension into the abdominal aorta. Today the patient underwent TEVAR left subclavian approach. CCM was consulted. 06/28: Overnight the patient became extremely hypertensive with a systolic blood pressure in the 200s, at which point in time the patient also became confused. The patient received IV antihypertensive medications, and was placed on Precedex infusion with resolution of symptomatology. The patient currently alert and oriented, normotensive. 06/29: MAXIMUM TEMPERATURE 100.1. Currently 99.3. +2 L overnight. Remains on Cardene drip at 5 mg an hour for hypertension. No longer agitated/confused. No bowel movement. 06/30: Restarted on Cleviprex due to hypertension. Clonidine on hold, will resume. HR in low 100's with frequent PVC. No BM Hospitalist Notes: 07/02: I have been asked to see this pleasant patient starting Today, as I know he was diagnosed with Type B Aortic Dissection. Status post TEVAR Thoracic Endovascular Aortic Repair. 07/03: Seen in his bedroom discussed with nurse Miss Mcleod patient at this time working with Physical Therapy for recommendations at discharge, he has right inguinal edema asked for Ultrasound by Vascular youth care specialist. found 8 cm pseudoaneurysm associated with Hematoma. 07/04: Stable in his bedroom, seen in the presence of Cardiothoracic [employer] Miss Candi Mancini, no further management for his Pseudoaneurysm planned, the patient stable working with Physical Therapy. 07/05: Seen in her bedroom no nausea,vomit or diarrhea, Nurse Cande present wants to go home and will go on [facility] for PT and Skilled nurse, as per Cardiothoracic Specialist Nurse Miss Candi Mancini recommended to continue controlled blood pressure between 120 and 140 mm Hg. and will follow in Vascular Surgery Office in 2 to 3 weeks will arrange follow up for CTA post TEVAR. recommended to discharge Home with [facility]. Assessment and Plan 1. Acute Delirium Resolved on Acetaminophen and Hydromorphone 2. 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 Hypertension Narcan 1 mcg/Kg/Hr management per surgery maintain systolic blood pressure 140-160 currently on clevidipine gtt. continue Labetalol 200 mg every 8 hours, Norvasc 10 mg daily for hypertension Clonidine 0.2 mg q 8 hours, Atorvastatin 40 mg for Hyperlipidemia, Narcan drip at 1 mcg per Kilogram for Spinal Cord ischemia prevention. Discontinued by Neurosurgery. Lumbar drain removed 06/29 4. Acute Respiratory Insufficiency Improved IV fluids discontinued 5. Acute Kidney Injury, Improved. 6. Postoperative antibiotics with Cefazolin was 4 days stopped 06/29 per Vascular Surgery, Leukocytosis Improved. 7. Pseudoaneurysm 8 cms associated with Hematoma on the right inguinal area. Vascular surgery following, no further surgical procedure planned. Working at this time with Physical Therapy Discussed with Patient, PT and nurse Miss Castellon in the room. all questions answered to the best of my abilities. As per Cardiothoracic Surgery [employer] Miss Candi Mancini okay to discharge home and follow in Vascular specialist office in 2 to 3 weeks. Continue Heart Healthy diet GI prophylaxis with Pantoprazole DVT prophylaxis SCDs and Heparin. Discharge Planning Discharge Home with [facility]. Pt Condition on Discharge: Good Discharge Disposition: Disch w/ Home Health Serv Discharge Time: > 30 minutes Discharge Instructions DIET: Follow Instructions for: Heart Healthy Diet Activities you can perform: See Additionl Instruction Other Activity Instructions: Follow Physical Therapy recommendations for discharge and follow at home Phu Paulino MD Jul 05, 2017 11:26
== END 2017-07-05 13:27 | disposition home health service (06) | DRG 269 ==
LOC: NEPE 02:02 → NEDA 03:30 → N03A 03:53 → N04A 06-23 17:20 → N05B 06-26 15:59 → N05A 06-26 18:33 → HCIS 06-27 08:11 → HCVR 06-27 11:45 → HCIN 07-01 16:10
PROVIDERS: ADMIT Internal Medicine; ATTEND Internal Medicine
PROC: 009U30Z Drainage of Spinal Canal with Drainage Device, Percutaneous Approach (ICD-10-PCS; 2017-06-26)
PROC: B01BZZZ Fluoroscopy of Spinal Cord (ICD-10-PCS; 2017-06-26)
PROC: B440ZZ3 Ultrasonography of Abdominal Aorta, Intravascular (ICD-10-PCS; 2017-06-27)
PROC: B44BZZ3 Ultrasonography of Other Intra-Abdominal Arteries, Intravascular (ICD-10-PCS; 2017-06-27)
PROC: 04V03DZ Restriction of Abdominal Aorta with Intraluminal Device, Percutaneous Approach (ICD-10-PCS; principal; 2017-06-27 08:30)
PROC: 031 Upper Arteries, Bypass (ICD-10-PCS; 2017-06-27 08:30)
PROC: 03L43DZ Occlusion of Left Subclavian Artery with Intraluminal Device, Percutaneous Approach (ICD-10-PCS; 2017-06-27 08:30)
DX: I71.03 Dissection of thoracoabdominal aorta (principal); N17.9 Acute kidney failure, unspecified; I72.8 Aneurysm of other specified arteries; I10 Essential (primary) hypertension; R41.0 Disorientation, unspecified; R06.89 Other abnormalities of breathing; G47.33 Obstructive sleep apnea (adult) (pediatric); K59.00 Constipation, unspecified; R74.8 Abnormal levels of other serum enzymes; Z91.19 Patient's noncompliance with other medical treatment and regimen
CPT/HCPCS: 63741; 70450; 71010; 71275; 72141; 72157; 74174; 76775; 77003; 80048; 80053; 80307; 81001; 82435; 82550; 82552; 82565; 82947; 82948; 83690; 83735; 84100; 84132; 84295; 84484; 84520; 85025; 85027; 85384; 85610; 85730; 86850; 86900; 86901; 86920; 87641; 93005; 93926; 94150; 96365; 96375; 99152; 99153; A9579; C1755; C9248; J0131; J0360; J0690; J1170; J1644; J1815; J2250; J2270; J2310; J2405; J2720; J2930; J3010; J3370; J3480; J7030; J7050; J7060; J7120; Q9967